=== PATIENT | female | born 1955 | race Caucasian/White ===

== ENCOUNTER 2016-08-13 13:27 | Inpatient (IN) | payer OTHER ==
[~2016-08-13] VITALS: Ht 160 cm; Wt 118.5 kg
[~2016-08-13 13:27] MED LIST: ASCORBIC ACID500 M3 PO; ATROVENT H200 INHALA IH; AZITHROMYCIN500 M1 PO; Aspirin PO; CARVEDILOL6.25 MG PO; CEFDINIR300 MG PO; CELEXA40 MG PO; CIPROFLOXACIN H10 ML BOTH EYES; COREG25 M1 PO; CYANOCOBALAM1000 MCG PO; Coreg PO; DELTASONE20 M1 PO; DRISDOL50000 UNIT PO; Diflucan PO; ECOTRIN325 MG PO; ESCITALOPRAM OX10 MG PO; FERROUS SULFAT325 MG PO; FISH OIL500 MG PO; FLONASE16 G1 BOTH NARES; FUROSEMIDE20 MG PO; GABAPENTIN300 MG PO; GABAPENTIN400 MG PO; GENTAMICIN SULFA5 ML BOTH EYES; GLUCOPHAGE1000 MG PO; GLUCOTROL10 MG PO; Glucotrol PO; KEFLEX500 MG PO; KLOR-CON M2020 MEQ PO; LANTUS 10100 UNITS/ SC; LANTUS 3 M100 UNITS1 SQ; LASIX20 MG PO; LASIX40 MG PO; LEVEMIR100 UNIT/2 SC; LEVOFLOXACIN750 MG PO; LEXAPRO10 MG PO; LIPITOR20 MG PO; LISINOPRIL2.5 MG PO; LISINOPRIL20 MG PO; MELOXICAM7.5 MG PO; MOBIC7.5 MG PO; NEURONTIN300 MG PO; NORVASC5 MG PO; NOVOLOG 10100 UNITS/ SC; NOVOLOG PE100 UNITS/ SC; Neurontin PO; Norvasc PO; OXYGEN MC; PRAVACHOL10 MG PO; PREDNISONE10 MG PO; PREDNISONE20 MG PO; RENVELA800 MG PO; SINGULAIR10 MG PO; SPIRIVA RESPIMAT4 GM IH; SYMBICORT60 INHALAT IH; THEOPHYLLINE400 MG PO; TOUJEO SOL300 UNIT/1 SC; TRADJENTA5 MG PO; TRAZODONE HCL50 MG PO; TUMS500 MG PO; VITAMIN D-32000 UNI1 PO; VITAMIN D2000 UNI1 PO; Vitamin B-12 PO; Vitamin D, Drisdol PO; celeXA PO; predniSONE PO
[2016-08-13 15:29] LABS: HEMATOCRIT 30.6 % (36.0-46.0); MCH 28.5 PG (29.0-34.0); MCHC 30.7 G/DL (30.0-36.0); MCV 92.7 FL (83-99); PLATELET COUNT 182 K/uL (156-360); RBC DIS.WIDTH-CV 14.9 % (11.8-14.6); WHITE BLOOD COUNT 5.3 K/uL (4.1-10.2)
[2016-08-13 15:46] LABS: CHLORIDE 97 mEq/L (99-109); POTASSIUM 5.2 mEq/L (3.7-5.4); SODIUM 141 mEq/L (136-147); TROP-I INTERPRETATION NEGATIVE; TROPONIN-I 0.01 ng/mL (0.0-0.30)
[2016-08-13 15:47] LABS: GLUCOSE 168 mg/dL (70-99)
[2016-08-13 15:49] LABS: ANION GAP 8 MEQ/L (2-14)
[2016-08-13 15:51] LABS: GFR ESTIMATE (CALCULATED) 35 mL/min/
[2016-08-13 15:52] LABS: UREA NITROGEN (BUN) 16 mg/dL (9-23)
[2016-08-13 16:28] LABS: BASE EXCESS 9.8 mEq/L (-3 to +3); BICARBONATE 40.1 mEq/L (22-26); CARBOXY HGB 2.5 % (0-5); COMMENTS - BLOOD GASES A+C+; DEVICE NC; METHEMOGLOBIN 0.9 % (0-1.5); O2 FLOW 3 L/MIN; PCO2 98 mm Hg (35-45); PO2 89 mm Hg (80-100); SITE LR; TOTAL RESP RATE 18 resp/min
[2016-08-13 16:29] LABS: pH 7.22 (7.35-7.45)
[2016-08-13 17:16] LABS: BASE EXCESS 8.1 mEq/L (-3 to +3); BICARBONATE 37.7 mEq/L (22-26); CARBOXY HGB 2.4 % (0-5); COMMENTS - BLOOD GASES C+; DEVICE HHFNC; FI02 30 %; METHEMOGLOBIN 0.9 % (0-1.5); O2 FLOW 40 L/MIN; PCO2 88 mm Hg (35-45); PO2 75 mm Hg (80-100); SITE RR +A
[2016-08-13 17:17] LABS: TOTAL RESP RATE 18 resp/min
[2016-08-13 17:18] LABS: pH 7.24 (7.35-7.45)
[2016-08-13 21:58] VITALS: BP 160/88
[2016-08-13 23:23] LABS: TROP-I INTERPRETATION NEGATIVE; TROPONIN-I < 0.01 ng/mL (0.0-0.30)
[2016-08-14 03:38] VITALS: BP 144/65
[2016-08-14 04:01] LABS: POINT-OF-CARE METER ID UU13113717
[2016-08-14 06:12] LABS: POINT-OF-CARE METER ID UU13113725
[2016-08-14 07:47] VITALS: BP 140/62
[2016-08-14 08:59] LABS: TROP-I INTERPRETATION NEGATIVE; TROPONIN-I < 0.01 ng/mL (0.0-0.30)
[2016-08-14 09:00] LABS: ANION GAP 7 MEQ/L (2-14); CHLORIDE 91 MEQ/L (99-109); GFR ESTIMATE (CALCULATED) 38 mL/min/; GLUCOSE 242 mg/dL (70-99); POTASSIUM 5.2 MEQ/L (3.7-5.4); SAMPLE HEMOLYSIS CHECK 0; SAMPLE ICTERIC CHECK 0; SAMPLE LIPEMIA CHECK 0; SODIUM 134 MEQ/L (136-147); UREA NITROGEN (BUN) 19 mg/dL (9-23)
[2016-08-14 11:35] VITALS: BP 125/64
[2016-08-14 14:56] VITALS: BP 129/58
[2016-08-14 16:08] LABS: POINT-OF-CARE METER ID UU13113717
[2016-08-14 19:19] VITALS: BP 150/70
[2016-08-14 21:30] LABS: POINT-OF-CARE METER ID UU13113717
[2016-08-14 23:10] VITALS: BP 126/60
[2016-08-15 03:03] VITALS: BP 145/65
[2016-08-15 05:44] LABS: POINT-OF-CARE METER ID UU13113717
[2016-08-15 07:29] VITALS: BP 116/56
[2016-08-15 10:31] LABS: BASE EXCESS 15.4 mEq/L (-3 to +3); BICARBONATE 44.8 mEq/L (22-26); CARBOXY HGB 2.1 % (0-5); METHEMOGLOBIN 1.2 % (0-1.5)
[2016-08-15 10:32] LABS: COMMENTS - BLOOD GASES A+C+; DEVICE NCHH; FI02 40 %; O2 FLOW 25 L/MIN; PCO2 88 mm Hg (35-45); PO2 99 mm Hg (80-100); SITE RR; TOTAL RESP RATE 16 resp/min; pH 7.31 (7.35-7.45)
[2016-08-15 11:34] VITALS: BP 123/60
[2016-08-15 11:35] LABS: POINT-OF-CARE METER ID UU13113725
[2016-08-15 15:57] VITALS: BP 147/66
[2016-08-15 16:29] LABS: POINT-OF-CARE METER ID UU13113717
[2016-08-15 19:39] VITALS: BP 113/64
[2016-08-15 21:35] LABS: POINT-OF-CARE METER ID UU13113717
[2016-08-15 23:55] VITALS: BP 140/61
[2016-08-16 03:35] VITALS: BP 135/67
[2016-08-16 06:33] LABS: POINT-OF-CARE METER ID UU13113717
[2016-08-16 07:33] VITALS: BP 120/57
[2016-08-16 11:31] VITALS: BP 117/61
[2016-08-16 15:04] VITALS: BP 132/61
[2016-08-16 19:30] VITALS: BP 130/58
[2016-08-16 20:49] LABS: POINT-OF-CARE METER ID UU13113717
[2016-08-17 00:10] VITALS: BP 126/67
[2016-08-17 03:07] VITALS: BP 131/59
[2016-08-17 07:23] VITALS: BP 138/66
[2016-08-17 11:31] LABS: POINT-OF-CARE METER ID UU13113725
[2016-08-17 15:08] VITALS: BP 128/64
[2016-08-17 16:37] LABS: POINT-OF-CARE METER ID UU13113725
[2016-08-17 19:52] VITALS: BP 137/62
[2016-08-17 21:03] LABS: POINT-OF-CARE METER ID UU13113725
[2016-08-17 23:17] VITALS: BP 144/69
[2016-08-18 05:47] LABS: POINT-OF-CARE METER ID UU13113725
[2016-08-18 08:06] VITALS: BP 142/62
[2016-08-18 11:08] LABS: POINT-OF-CARE METER ID UU13113725
[2016-08-18 11:20] VITALS: BP 129/67
[2016-08-18 16:33] VITALS: BP 142/67
[2016-08-18 16:40] LABS: POINT-OF-CARE METER ID UU13113725
[2016-08-18 19:45] VITALS: BP 154/78
[2016-08-18 21:03] LABS: POINT-OF-CARE METER ID UU13113725
[2016-08-18 23:10] VITALS: BP 164/68
[2016-08-19] VITALS (7 sets, daily range): BP systolic 117–181; BP diastolic 62–79
[2016-08-19 08:19] LABS: ANION GAP ND MEQ/L (2-14); CHLORIDE 90 MEQ/L (99-109); GFR ESTIMATE (CALCULATED) 32 mL/min/; GLUCOSE 142 mg/dL (70-99); POTASSIUM 4.3 MEQ/L (3.7-5.4); SAMPLE HEMOLYSIS CHECK 0; SAMPLE ICTERIC CHECK 0; SAMPLE LIPEMIA CHECK 0; SODIUM 138 MEQ/L (136-147)
[2016-08-19 08:24] LABS: CARBON DIOXIDE (BICARBONATE) > 40.0 MEQ/L (20-31); UREA NITROGEN (BUN) 37 mg/dL (9-23)
[2016-08-19 21:37] LABS: POINT-OF-CARE METER ID UU13113717
[2016-08-20 09:00] VITALS: BP 147/64
[2016-08-20 11:39] LABS: POINT-OF-CARE METER ID UU13113725
[2016-08-20 16:25] VITALS: BP 172/72
[2016-08-20 23:19] VITALS: BP 154/64
[2016-08-21 07:55] VITALS: BP 147/65
[2016-08-21 11:41] LABS: POINT-OF-CARE METER ID UU13113725
[2016-08-21 16:39] VITALS: BP 151/69
[2016-08-21 23:32] VITALS: BP 116/55
[2016-08-22 07:48] LABS: ANION GAP ND MEQ/L (2-14); CHLORIDE 88 MEQ/L (99-109); GFR ESTIMATE (CALCULATED) 37 mL/min/; GLUCOSE 115 mg/dL (70-99); SAMPLE HEMOLYSIS CHECK 0; SAMPLE ICTERIC CHECK 0; SAMPLE LIPEMIA CHECK 0; SODIUM 138 MEQ/L (136-147); UREA NITROGEN (BUN) 37 mg/dL (9-23)
[2016-08-22 07:50] LABS: CARBON DIOXIDE (BICARBONATE) > 40.0 MEQ/L (20-31); POTASSIUM 5.8 MEQ/L (3.7-5.4)
[2016-08-22 07:55] VITALS: BP 128/63
[2016-08-22 11:48] LABS: POINT-OF-CARE METER ID UU13113725
[2016-08-22 15:57] LABS: POINT-OF-CARE METER ID UU13113717
[2016-08-22 16:12] VITALS: BP 135/61
[2016-08-22 21:56] LABS: POINT-OF-CARE METER ID UU13113725
[2016-08-23 00:07] VITALS: BP 127/58
[2016-08-23 06:03] LABS: POINT-OF-CARE METER ID UU13113725
[2016-08-23 07:00] LABS: ANION GAP 8 MEQ/L (2-14); CHLORIDE 88 MEQ/L (99-109); GFR ESTIMATE (CALCULATED) 32 mL/min/; GLUCOSE 115 mg/dL (70-99); POTASSIUM 5.1 MEQ/L (3.7-5.4); SAMPLE HEMOLYSIS CHECK 0; SAMPLE ICTERIC CHECK 0; SAMPLE LIPEMIA CHECK 0; SODIUM 135 MEQ/L (136-147); UREA NITROGEN (BUN) 39 mg/dL (9-23)
[2016-08-23 07:37] VITALS: BP 139/64
[2016-08-23 10:53] LABS: POINT-OF-CARE METER ID UU13113725
[2016-08-23 15:40] LABS: POINT-OF-CARE METER ID UU13113725
[2016-08-23 15:55] VITALS: BP 135/61
[2016-08-23 20:58] LABS: POINT-OF-CARE METER ID UU13113725
[2016-08-23 23:02] VITALS: BP 134/65
[2016-08-24 05:58] LABS: POINT-OF-CARE METER ID UU13113725
[2016-08-24 07:50] VITALS: BP 116/68
[2016-08-24 11:51] LABS: POINT-OF-CARE METER ID UU13113725
[2016-08-24 15:50] LABS: POINT-OF-CARE METER ID UU13113725
[2016-08-24 16:22] VITALS: BP 109/55
[2016-08-24 21:19] LABS: POINT-OF-CARE METER ID UU13113725
[2016-08-24 23:04] VITALS: BP 134/65
[2016-08-25 06:34] LABS: POINT-OF-CARE METER ID UU13113717
[2016-08-25 08:25] VITALS: BP 145/65
[2016-08-25 11:58] LABS: POINT-OF-CARE METER ID UU13113717
[2016-08-25 15:40] VITALS: BP 154/71
[2016-08-25 16:12] LABS: POINT-OF-CARE METER ID UU13113717
[2016-08-25 21:01] LABS: POINT-OF-CARE METER ID UU13113717
[2016-08-25 23:05] VITALS: BP 146/66
[2016-08-26 06:05] LABS: POINT-OF-CARE METER ID UU13113717
[2016-08-26 10:32] LABS: HEMATOCRIT 30.2 % (36.0-46.0); MCH 28.2 PG (29.0-34.0); MCHC 31.8 G/DL (30.0-36.0); MCV 88.8 FL (83-99); MEAN PLAT.VOLUME 9.8 uM^3 (9.5-12.4); RBC DIS.WIDTH-CV 14.8 % (11.8-14.6); RBC DIS.WIDTH-SD 47.9 % (39-53)
[2016-08-26 10:45] LABS: PLATELET COUNT 265 K/uL (156-360); WHITE BLOOD COUNT 9.5 K/uL (4.1-10.2)
[2016-08-26 10:55] LABS: ALKALINE PHOSPHATASE 45 IU/L (3-129); ANION GAP 4 MEQ/L (2-14); CHLORIDE 91 MEQ/L (99-109); GFR ESTIMATE (CALCULATED) 40 mL/min/; GLUCOSE 105 mg/dL (70-99); POTASSIUM 4.7 MEQ/L (3.7-5.4); SAMPLE HEMOLYSIS CHECK 1; SAMPLE ICTERIC CHECK 0; SAMPLE LIPEMIA CHECK 0; SODIUM 133 MEQ/L (136-147); TOTAL BILIRUBIN 0.3 MG/DL (0.0-1.0); UREA NITROGEN (BUN) 38 mg/dL (9-23)
[2016-08-26 15:21] VITALS: BP 163/74
[2016-08-26 21:02] LABS: POINT-OF-CARE METER ID UU13113725
[2016-08-26 21:18] LABS: C DIFF TOXIN NEGATIVE (NEGATIVE)
[2016-08-26 21:19] LABS: PROBE CHECK PASS; SPECIMEN PROCESSING CONTROL PASS
[2016-08-26 23:46] VITALS: BP 137/71
[2016-08-27 06:04] LABS: POINT-OF-CARE METER ID UU13113725
[2016-08-27 08:32] VITALS: BP 130/71
[2016-08-27 11:31] LABS: POINT-OF-CARE METER ID UU13113725
[2016-08-27 15:48] LABS: POINT-OF-CARE METER ID UU13113725
[2016-08-27 16:37] VITALS: BP 153/65
[2016-08-27 22:55] VITALS: BP 160/73
[2016-08-28 09:05] VITALS: BP 132/80
[2016-08-28] MEDS ORDERED: PREDNISONE10 MG PO (11:59)
[2016-08-28] MEDS ORDERED: ADDERALL XR 2020 MG PO (13:37)
[2016-08-28] MEDS ORDERED: DUONEB 2.5-0.5 M3 ML AEROSOL (13:37)
== END 2016-08-28 16:45 | disposition home health service (06) | DRG 190 ==
LOC: EME 13:27 → 5EAST 17:01 → EDOF 17:01 → 5EAST 21:34
PROVIDERS: Emergency Medicine; Internal Medicine; Internal Medicine Pulmonary Disease
DX: J44.1 Chronic obstructive pulmonary disease with (acute) exacerbation (principal); J96.21 Acute and chronic respiratory failure with hypoxia; J45.901 Unspecified asthma with (acute) exacerbation; I50.33 Acute on chronic diastolic (congestive) heart failure; E87.2 Acidosis; E66.2 Morbid (severe) obesity with alveolar hypoventilation; Z68.42 Body mass index [BMI] 45.0-49.9, adult; I13.0 Hypertensive heart and chronic kidney disease with heart failure and stage 1 through stage 4 chronic kidney disease, or unspecified chronic kidney disease; H00.035 Abscess of left lower eyelid; E87.5 Hyperkalemia; R11.10 Vomiting, unspecified; R19.7 Diarrhea, unspecified; N18.3 Chronic kidney disease, stage 3 (moderate); E11.22 Type 2 diabetes mellitus with diabetic chronic kidney disease; I27.2 Other secondary pulmonary hypertension; I25.119 Atherosclerotic heart disease of native coronary artery with unspecified angina pectoris; E78.5 Hyperlipidemia, unspecified; F31.9 Bipolar disorder, unspecified; F41.9 Anxiety disorder, unspecified; K21.9 Gastro-esophageal reflux disease without esophagitis; Z86.73 Personal history of transient ischemic attack (TIA), and cerebral infarction without residual deficits; Z79.4 Long term (current) use of insulin; Z99.81 Dependence on supplemental oxygen; Z91.19 Patient's noncompliance with other medical treatment and regimen
CPT/HCPCS: 36600; 71020; 80048; 80053; 82803; 82948; 83880; 84484; 85027; 87493; 93005; 94640; 94640 76; 94660; 94760; 94799; 99281; 99285; J0690; J0692; J1650; J1815; J1940; J7050; J7512

== ENCOUNTER 2016-10-03 11:47 | Emergency (ER) | payer OTHER ==
[~2016-10-03] VITALS: Ht 160 cm; Wt 122.7 kg
[~2016-10-03 11:47] MED LIST changes: +ADDERALL XR 2020 MG PO; +DUONEB 2.5-0.5 M3 ML AEROSOL
[2016-10-03 12:58] LABS: HEMATOCRIT 34.7 % (36.0-46.0); MCH 28.6 PG (29.0-34.0); MCHC 31.7 G/DL (30.0-36.0); MCV 90.1 FL (83-99); MEAN PLAT.VOLUME 9.7 uM^3 (9.5-12.4); PLATELET COUNT 229 K/uL (156-360); RBC DIS.WIDTH-SD 44.1 % (39-53); RED BLOOD COUNT 3.85 M/uL (3.80-5.20); WHITE BLOOD COUNT 7.5 K/uL (4.1-10.2)
[2016-10-03 13:10] LABS: CHLORIDE 98 mEq/L (99-109); POTASSIUM 4.4 mEq/L (3.7-5.4); SODIUM 145 mEq/L (136-147)
[2016-10-03 13:11] LABS: GLUCOSE 108 mg/dL (70-99)
[2016-10-03 13:13] LABS: ANION GAP 9 MEQ/L (2-14)
[2016-10-03 13:15] LABS: GFR ESTIMATE (CALCULATED) 48 mL/min/
[2016-10-03 13:16] LABS: UREA NITROGEN (BUN) 10 mg/dL (9-23)
[2016-10-03 13:25] LABS: TROP-I INTERPRETATION NEGATIVE; TROPONIN-I 0.01 ng/mL (0.0-0.30)
[2016-10-03 17:55] LABS: TROP-I INTERPRETATION NEGATIVE; TROPONIN-I 0.02 ng/mL (0.0-0.30)
[2016-10-03] MEDS ORDERED: FLEXERIL10 MG PO (18:19)
[2016-10-03 19:27] VITALS: BP 144/73
== END 2016-10-03 19:34 | disposition home or self-care (01) ==
LOC: EME 11:47
PROVIDERS: Nurse Practitioner Family
DX: M16.11 Unilateral primary osteoarthritis, right hip (principal); R06.00 Dyspnea, unspecified; R07.89 Other chest pain; W18.30XA Fall on same level, unspecified, initial encounter; Y92.002 Bathroom of unspecified non-institutional (private) residence as the place of occurrence of the external cause; J45.909 Unspecified asthma, uncomplicated; J44.9 Chronic obstructive pulmonary disease, unspecified; I11.0 Hypertensive heart disease with heart failure; I50.9 Heart failure, unspecified; E11.9 Type 2 diabetes mellitus without complications; E78.5 Hyperlipidemia, unspecified; K21.9 Gastro-esophageal reflux disease without esophagitis; Z86.73 Personal history of transient ischemic attack (TIA), and cerebral infarction without residual deficits; Z79.4 Long term (current) use of insulin
CPT/HCPCS: 71020; 73502; 80048; 84484; 85027; 93005; 99281; 99284

== ENCOUNTER 2016-11-17 19:49 | Observation (INO) | payer OTHER ==
[~2016-11-17] VITALS: Ht 160 cm; Wt 124.6 kg
[~2016-11-17 19:49] MED LIST changes: +FLEXERIL10 MG PO
[2016-11-17 20:31] LABS: HEMATOCRIT 29.3 % (36.0-46.0); MCH 29.6 PG (29.0-34.0); MCHC 32.4 G/DL (30.0-36.0); MCV 91.3 FL (83-99); MEAN PLAT.VOLUME 10.2 uM^3 (9.5-12.4); PLATELET COUNT 212 K/uL (156-360); RBC DIS.WIDTH-CV 13.2 % (11.8-14.6); RBC DIS.WIDTH-SD 42.8 % (39-53); RED BLOOD COUNT 3.21 M/uL (3.80-5.20); WHITE BLOOD COUNT 7.4 K/uL (4.1-10.2)
[2016-11-17 20:50] LABS: CHLORIDE 97 mEq/L (99-109); POTASSIUM 4.9 mEq/L (3.7-5.4); SODIUM 139 mEq/L (136-147)
[2016-11-17 20:52] LABS: GLUCOSE 266 mg/dL (70-99)
[2016-11-17 20:54] LABS: ANION GAP 10 MEQ/L (2-14)
[2016-11-17 20:56] LABS: GFR ESTIMATE (CALCULATED) 32 mL/min/
[2016-11-17 20:57] LABS: UREA NITROGEN (BUN) 35 mg/dL (9-23)
[2016-11-17 21:01] LABS: TROP-I INTERPRETATION NEGATIVE; TROPONIN-I 0.02 ng/mL (0.0-0.30)
[2016-11-17] MEDS ORDERED: SYMBICORT60 INHALAT IH (22:23)
[2016-11-17] MEDS ORDERED: PREDNISONE10 MG PO (22:26)
[2016-11-18 00:06] VITALS: BP 123/58
[2016-11-18 03:49] LABS: TROP-I INTERPRETATION NEGATIVE; TROPONIN-I 0.02 ng/mL (0.0-0.30)
[2016-11-18 04:01] LABS: HDL CHOLESTEROL 48 MG/DL (Desirable>=50); LDL CHOLESTEROL 71 mg/dL (Desirable<100); NON-HDL CHOLESTEROL 108 mg/dL (Desirable<160); TOTAL CHOLESTEROL 156 mg/dL (Desirable<200); TRIGLYCERIDES 186 MG/DL (Normal: <150)
[2016-11-18 04:35] VITALS: BP 133/76
[2016-11-18 08:30] VITALS: BP 153/67
[2016-11-18 08:46] LABS: POINT-OF-CARE METER ID UU13113831
[2016-11-18 09:09] LABS: TROP-I INTERPRETATION NEGATIVE; TROPONIN-I 0.03 ng/mL (0.0-0.30)
[2016-11-18 10:11] LABS: EOSINOPHIL COUNT 0.2 K/uL (0-0.3); HEMATOCRIT 31.5 % (36.0-46.0); IMMATURE GRANULOCYTE (%) 0.6 % (0.0-0.7); IMMATURE GRANULOCYTE COUNT 0.1 K/uL; INSTRUMENT ABS NEUTROPHIL CT 5.4 K/uL; LYMPHOCYTE COUNT 2.6 K/uL (1.0-2.8); MCH 29.3 PG (29.0-34.0); MCHC 31.7 G/DL (30.0-36.0); MCV 92.4 FL (83-99); MEAN PLAT.VOLUME 10.3 uM^3 (9.5-12.4); MONOCYTE COUNT 0.6 K/uL (0-0.8); NEUTROPHIL (%) 60.7 % (45-76); NEUTROPHIL COUNT 5.4 K/uL (1.8-6.4); PLATELET COUNT 209 K/uL (156-360); RBC DIS.WIDTH-CV 13.3 % (11.8-14.6); RED BLOOD COUNT 3.41 M/uL (3.80-5.20); WHITE BLOOD COUNT 8.9 K/uL (4.1-10.2)
[2016-11-18 10:31] LABS: ANION GAP 9 MEQ/L (2-14); CHLORIDE 99 MEQ/L (99-109); GFR ESTIMATE (CALCULATED) 35 mL/min/; POTASSIUM 4.8 MEQ/L (3.7-5.4); SAMPLE HEMOLYSIS CHECK 0; SAMPLE ICTERIC CHECK 0; SAMPLE LIPEMIA CHECK 0; SODIUM 144 MEQ/L (136-147); UREA NITROGEN (BUN) 28 mg/dL (9-23)
[2016-11-18 10:34] LABS: GLUCOSE 109 mg/dL (70-99)
[2016-11-18 12:13] VITALS: BP 109/56
[2016-11-18 13:27] LABS: POINT-OF-CARE METER ID UU13113831
[2016-11-18 16:49] VITALS: BP 137/63
[2016-11-18 18:10] LABS: POINT-OF-CARE METER ID UU13113831
[2016-11-18 20:57] LABS: POINT-OF-CARE METER ID UU13113831
[2016-11-18 21:00] VITALS: BP 131/60
[2016-11-18 23:30] LABS: POINT-OF-CARE METER ID UU14162513
[2016-11-19 07:11] VITALS: BP 152/68
[2016-11-19 08:47] LABS: POINT-OF-CARE METER ID UU13113700
[2016-11-19 09:38] LABS: ANION GAP ND MEQ/L (2-14); CHLORIDE 94 MEQ/L (99-109); GFR ESTIMATE (CALCULATED) 44 mL/min/; GLUCOSE 88 mg/dL (70-99); POTASSIUM 4.8 MEQ/L (3.7-5.4); SAMPLE HEMOLYSIS CHECK 0; SAMPLE ICTERIC CHECK 0; SAMPLE LIPEMIA CHECK 0; SODIUM 142 MEQ/L (136-147); UREA NITROGEN (BUN) 24 mg/dL (9-23)
[2016-11-19 09:39] LABS: CARBON DIOXIDE (BICARBONATE) > 40.0 MEQ/L (20-31)
[2016-11-19 10:24] VITALS: BP 122/58
[2016-11-19 12:38] LABS: POINT-OF-CARE METER ID UU14162513
[2016-11-19 15:22] VITALS: BP 146/63
== END 2016-11-19 15:30 | disposition home or self-care (01) ==
LOC: EME → EDBD 19:49 → EME 19:49 → EDOF 22:27 → 5WEST 23:54
PROVIDERS: Emergency Medicine; Hospitalist; Nurse Practitioner Family; Physician Assistant Medical
DX: I13.0 Hypertensive heart and chronic kidney disease with heart failure and stage 1 through stage 4 chronic kidney disease, or unspecified chronic kidney disease (principal); I50.33 Acute on chronic diastolic (congestive) heart failure; N18.3 Chronic kidney disease, stage 3 (moderate); R07.89 Other chest pain; J96.11 Chronic respiratory failure with hypoxia; J96.12 Chronic respiratory failure with hypercapnia; E11.65 Type 2 diabetes mellitus with hyperglycemia; E66.2 Morbid (severe) obesity with alveolar hypoventilation; Z68.42 Body mass index [BMI] 45.0-49.9, adult; I25.10 Atherosclerotic heart disease of native coronary artery without angina pectoris; I69.351 Hemiplegia and hemiparesis following cerebral infarction affecting right dominant side; G47.33 Obstructive sleep apnea (adult) (pediatric); I27.2 Other secondary pulmonary hypertension; I35.0 Nonrheumatic aortic (valve) stenosis; J44.9 Chronic obstructive pulmonary disease, unspecified; J45.909 Unspecified asthma, uncomplicated; E78.5 Hyperlipidemia, unspecified; Z79.4 Long term (current) use of insulin; F41.9 Anxiety disorder, unspecified; F31.9 Bipolar disorder, unspecified
CPT/HCPCS: 71010; 71020; 80048; 80048 91; 80061; 82948; 83605; 83880; 84484; 85025; 85027; 87040; 93005; 94640; 94640 76; 94660; 94760; 94799; 99202; 99281; 99285; G0378; J1650; J1815; J1940; J7512

== ENCOUNTER 2016-11-29 12:22 | Observation (INO) | payer OTHER ==
[~2016-11-29] VITALS: Ht 160 cm; Wt 124.0 kg
[2016-11-29 13:00] LABS: EOSINOPHIL COUNT 0.2 K/uL (0-0.3); HEMATOCRIT 32.6 % (36.0-46.0); IMMATURE GRANULOCYTE (%) 0.5 % (0.0-0.7); LYMPHOCYTE COUNT 1.2 K/uL (1.0-2.8); MCH 29.1 PG (29.0-34.0); MCHC 31.3 G/DL (30.0-36.0); MCV 92.9 FL (83-99); MEAN PLAT.VOLUME 9.1 uM^3 (9.5-12.4); MONOCYTE (%) 8.3 % (3-12); MONOCYTE COUNT 0.5 K/uL (0-0.8); NEUTROPHIL (%) 66.6 % (45-76); PLATELET COUNT 175 K/uL (156-360); RBC DIS.WIDTH-CV 13.7 % (11.8-14.6); RED BLOOD COUNT 3.51 M/uL (3.80-5.20); WHITE BLOOD COUNT 6.1 K/uL (4.1-10.2)
[2016-11-29 13:06] LABS: CHLORIDE 94 mEq/L (99-109); POTASSIUM 5.1 mEq/L (3.7-5.4); SODIUM 141 mEq/L (136-147)
[2016-11-29 13:07] LABS: MAGNESIUM 2.1 mg/dL (1.3-2.7)
[2016-11-29 13:09] LABS: GLUCOSE 236 mg/dL (70-99)
[2016-11-29 13:10] LABS: ANION GAP 8 MEQ/L (2-14)
[2016-11-29 13:11] LABS: TOTAL BILIRUBIN 0.3 mg/dL (0.0-1.0)
[2016-11-29 13:12] LABS: ALKALINE PHOSPHATASE 52 IU/L (3-129)
[2016-11-29 13:13] LABS: GFR ESTIMATE (CALCULATED) 40 mL/min/
[2016-11-29 13:14] LABS: UREA NITROGEN (BUN) 19 mg/dL (9-23)
[2016-11-29 13:19] LABS: TROP-I INTERPRETATION NEGATIVE; TROPONIN-I 0.02 ng/mL (0.0-0.30)
[2016-11-29 20:54] LABS: TROP-I INTERPRETATION NEGATIVE; TROPONIN-I 0.02 ng/mL (0.0-0.30)
[2016-11-29 21:57] VITALS: BP 129/61
[2016-11-29 22:23] LABS: POINT-OF-CARE METER ID UU13113781
[2016-11-29] MEDS ORDERED: GABAPENTIN400 MG PO (22:45)
[2016-11-29] MEDS ORDERED: K-DUR20 MEQ PO (22:46)
[2016-11-29] MEDS ORDERED: SPIRIVA RESPIMAT4 GM IH (22:49)
[2016-11-29] MEDS ORDERED: DUONEB 2.5-0.5 M3 ML AEROSOL (22:49)
[2016-11-29] MEDS ORDERED: SYMBICORT60 INHALAT IH (22:51)
[2016-11-29] MEDS ORDERED: CYCLOBENZAPRINE5 MG PO (22:51)
[2016-11-29] MEDS ORDERED: TRAZODONE HCL50 MG PO (22:52)
[2016-11-29] MEDS ORDERED: FUROSEMIDE20 MG PO (22:52)
[2016-11-29] MEDS ORDERED: FERROUS SULFAT325 MG PO (22:53)
[2016-11-29] MEDS ORDERED: NOVOLOG PE100 UNITS/ SC (22:53)
[2016-11-29] MEDS ORDERED: ASCORBIC ACID500 M3 PO (22:54)
[2016-11-29] MEDS ORDERED: VITAMIN B122500 MCG PO (22:54)
[2016-11-29] MEDS ORDERED: VITAMIN D5000 UNI1 PO (22:55)
[2016-11-29] MEDS ORDERED: TRADJENTA5 MG PO (22:55)
[2016-11-29] MEDS ORDERED: CARVEDILOL6.25 MG PO (22:55)
[2016-11-29] MEDS ORDERED: LIPITOR20 MG PO (22:56)
[2016-11-29] MEDS ORDERED: SINGULAIR10 MG PO (22:56)
[2016-11-29] MEDS ORDERED: TOUJEO SOL300 UNIT/1 SC (22:56)
[2016-11-29] MEDS ORDERED: LEXAPRO10 MG PO (22:57)
[2016-11-29] MEDS ORDERED: THEO-DUR,THEOC300 MG PO (22:57)
[2016-11-29] MEDS ORDERED: FLONASE16 G1 BOTH NARES (22:57)
[2016-11-30] VITALS (7 sets, daily range): BP systolic 112–158; BP diastolic 59–85
[2016-11-30 04:38] LABS: TROP-I INTERPRETATION NEGATIVE; TROPONIN-I 0.02 ng/mL (0.0-0.30)
[2016-11-30 07:31] LABS: POINT-OF-CARE METER ID UU14174216
[2016-11-30 11:24] LABS: POINT-OF-CARE METER ID UU14174216
[2016-11-30 16:19] LABS: POINT-OF-CARE METER ID UU14174216
[2016-11-30 21:40] LABS: POINT-OF-CARE METER ID UU14174216
[2016-12-01 03:52] VITALS: BP 149/68
[2016-12-01 06:59] VITALS: BP 151/67
[2016-12-01 12:09] VITALS: BP 114/53
== END 2016-12-01 17:54 | disposition home health service (06) ==
LOC: EME → EDBD 12:22 → EDOF 15:26 → 4EAST 15:26
PROVIDERS: Internal Medicine; Physician Assistant
DX: R55 Syncope and collapse (principal); R07.89 Other chest pain; J44.1 Chronic obstructive pulmonary disease with (acute) exacerbation; J45.909 Unspecified asthma, uncomplicated; I13.0 Hypertensive heart and chronic kidney disease with heart failure and stage 1 through stage 4 chronic kidney disease, or unspecified chronic kidney disease; I50.32 Chronic diastolic (congestive) heart failure; E11.9 Type 2 diabetes mellitus without complications; N18.9 Chronic kidney disease, unspecified; E66.01 Morbid (severe) obesity due to excess calories; I25.10 Atherosclerotic heart disease of native coronary artery without angina pectoris; G47.30 Sleep apnea, unspecified; Z68.42 Body mass index [BMI] 45.0-49.9, adult; Z99.81 Dependence on supplemental oxygen; F32.9 Major depressive disorder, single episode, unspecified
CPT/HCPCS: 70450; 71020; 80053; 82948; 83735; 83880; 84484; 85025; 93005; 94640; 94640 76; 94664; 94799; 99202; 99281; 99285; G0378; G8978 GP CH; G8979 GP CH; G8980 GP CH; J1650; J1815; J1940; J7120

== ENCOUNTER 2016-12-07 13:20 | Inpatient (IN) | payer OTHER ==
[~2016-12-07] VITALS: Ht 160 cm; Wt 119.5 kg
[~2016-12-07 13:20] MED LIST changes: +CYCLOBENZAPRINE5 MG PO; +K-DUR20 MEQ PO; +THEO-DUR,THEOC300 MG PO; +VITAMIN B122500 MCG PO; +VITAMIN D5000 UNI1 PO
[2016-12-07 14:39] LABS: EOSINOPHIL (%) 2.1 % (0-5); EOSINOPHIL COUNT 0.1 K/uL (0-0.3); HEMATOCRIT 28.3 % (36.0-46.0); IMMATURE GRANULOCYTE (%) 0.3 % (0.0-0.7); INSTRUMENT ABS NEUTROPHIL CT 4.7 K/uL; LYMPHOCYTE COUNT 1.1 K/uL (1.0-2.8); MCH 29.7 PG (29.0-34.0); MCHC 31.8 G/DL (30.0-36.0); MCV 93.4 FL (83-99); MEAN PLAT.VOLUME 8.8 uM^3 (9.5-12.4); MONOCYTE (%) 7.9 % (3-12); MONOCYTE COUNT 0.5 K/uL (0-0.8); NEUTROPHIL (%) 72.4 % (45-76); NEUTROPHIL COUNT 4.7 K/uL (1.8-6.4); PLATELET COUNT 153 K/uL (156-360); RBC DIS.WIDTH-CV 13.6 % (11.8-14.6); RED BLOOD COUNT 3.03 M/uL (3.80-5.20); WHITE BLOOD COUNT 6.6 K/uL (4.1-10.2)
[2016-12-07 14:49] LABS: CHLORIDE 96 mEq/L (99-109); SODIUM 142 mEq/L (136-147)
[2016-12-07 14:51] LABS: GLUCOSE 143 mg/dL (70-99); INTER. NORMALIZED RATIO 0.9; PROTHROMBIN TIME 9.5 (9.2-11.2); PTT 28.7 (25-32)
[2016-12-07 14:52] LABS: ANION GAP 10 MEQ/L (2-14)
[2016-12-07 14:55] LABS: GFR ESTIMATE (CALCULATED) 44 mL/min/
[2016-12-07 14:56] LABS: UREA NITROGEN (BUN) 15 mg/dL (9-23)
[2016-12-07 15:02] LABS: TROP-I INTERPRETATION NEGATIVE; TROPONIN-I 0.02 ng/mL (0.0-0.30)
[2016-12-07] MEDS ORDERED: TUMS500 MG PO (16:52)
[2016-12-07] MEDS ORDERED: MELOXICAM7.5 MG PO (16:52)
[2016-12-07] MEDS ORDERED: LITE COAT ASPI325 M1 PO (16:52)
[2016-12-07 21:31] VITALS: BP 174/72
[2016-12-07 23:01] LABS: METH RESISTANT S AUREUS PCR POSITIVE (NEGATIVE)
[2016-12-07 23:14] LABS: PROBE CHECK PASS
[2016-12-08] VITALS (9 sets, daily range): BP systolic 127–174; BP diastolic 61–83
[2016-12-08 07:45] LABS: HEMATOCRIT 29.4 % (36.0-46.0); MCH 29.5 PG (29.0-34.0); MCV 92.2 FL (83-99); MEAN PLAT.VOLUME 9.5 uM^3 (9.5-12.4); PLATELET COUNT 185 K/uL (156-360); RBC DIS.WIDTH-CV 13.2 % (11.8-14.6); RED BLOOD COUNT 3.19 M/uL (3.80-5.20)
[2016-12-08 08:13] LABS: TROP-I INTERPRETATION NEGATIVE; TROPONIN-I 0.01 ng/mL (0.0-0.30)
[2016-12-08 08:27] LABS: ANION GAP ND MEQ/L (2-14); CARBON DIOXIDE (BICARBONATE) > 40.0 MEQ/L (20-31); CHLORIDE 92 MEQ/L (99-109); GFR ESTIMATE (CALCULATED) 44 mL/min/; GLUCOSE 232 mg/dL (70-99); SAMPLE HEMOLYSIS CHECK 0; SAMPLE ICTERIC CHECK 0; SAMPLE LIPEMIA CHECK 0; SODIUM 140 MEQ/L (136-147); UREA NITROGEN (BUN) 16 mg/dL (9-23)
[2016-12-08 13:59] LABS: BASE EXCESS 16.9 mEq/L (-3 to +3); BICARBONATE 46.7 mEq/L (22-26); CARBOXY HGB 2.3 % (0-5); METHEMOGLOBIN 1.4 % (0-1.5); PO2 40 mm Hg (80-100); pH 7.38 (7.35-7.45)
[2016-12-08 14:00] LABS: COMMENTS - BLOOD GASES A+C+; DEVICE ROOM AIR; FI02 21 %; O2 FLOW 0 L/MIN; PCO2 79 mm Hg (35-45); SITE LR
[2016-12-08 14:01] LABS: TOTAL RESP RATE 18 resp/min
[2016-12-08 21:46] LABS: POINT-OF-CARE METER ID UU14162508
[2016-12-09 03:33] VITALS: BP 120/67
[2016-12-09 06:08] LABS: EOSINOPHIL (%) 0 % (0-5); IMMATURE GRANULOCYTE (%) 0.4 % (0.0-0.7); LYMPHOCYTE COUNT 1.1 K/uL (1.0-2.8); MCH 29.5 PG (29.0-34.0); MCHC 32.5 G/DL (30.0-36.0); MCV 90.9 FL (83-99); MEAN PLAT.VOLUME 9.2 uM^3 (9.5-12.4); MONOCYTE (%) 5.1 % (3-12); MONOCYTE COUNT 0.4 K/uL (0-0.8); NEUTROPHIL (%) 80.2 % (45-76); PLATELET COUNT 212 K/uL (156-360); RBC DIS.WIDTH-CV 13.5 % (11.8-14.6); RBC DIS.WIDTH-SD 44.2 % (39-53); RED BLOOD COUNT 3.08 M/uL (3.80-5.20); WHITE BLOOD COUNT 7.4 K/uL (4.1-10.2)
[2016-12-09 06:43] LABS: POINT-OF-CARE METER ID UU14162508
[2016-12-09 06:44] LABS: ANION GAP ND MEQ/L (2-14); CHLORIDE 89 MEQ/L (99-109); GFR ESTIMATE (CALCULATED) 32 mL/min/; GLUCOSE 254 mg/dL (70-99); POTASSIUM 4.7 MEQ/L (3.7-5.4); SAMPLE HEMOLYSIS CHECK 0; SAMPLE ICTERIC CHECK 0; SAMPLE LIPEMIA CHECK 0; SODIUM 137 MEQ/L (136-147)
[2016-12-09 06:47] LABS: CARBON DIOXIDE (BICARBONATE) > 40.0 MEQ/L (20-31); UREA NITROGEN (BUN) 26 mg/dL (9-23)
[2016-12-09 07:14] VITALS: BP 141/66
[2016-12-09 11:20] LABS: POINT-OF-CARE METER ID UU14162508
[2016-12-09] MEDS ORDERED: PREDNISONE20 MG PO (13:50)
[2016-12-09] MEDS ORDERED: PREDNISONE10 MG PO (13:50)
[2016-12-09 15:44] VITALS: BP 145/61
[2016-12-09 15:59] LABS: POINT-OF-CARE METER ID UU14162508
== END 2016-12-09 17:00 | disposition home or self-care (01) | DRG 191 ==
LOC: EME 13:20 → 2EASTP 17:43 → EDOF 17:43 → 2EASTP 20:28
PROVIDERS: Emergency Medicine; Family Medicine; Internal Medicine Pulmonary Disease
DX: J44.1 Chronic obstructive pulmonary disease with (acute) exacerbation (principal); J45.909 Unspecified asthma, uncomplicated; Z87.891 Personal history of nicotine dependence; I13.0 Hypertensive heart and chronic kidney disease with heart failure and stage 1 through stage 4 chronic kidney disease, or unspecified chronic kidney disease; I50.32 Chronic diastolic (congestive) heart failure; N18.9 Chronic kidney disease, unspecified; E66.2 Morbid (severe) obesity with alveolar hypoventilation; Z68.42 Body mass index [BMI] 45.0-49.9, adult; D63.1 Anemia in chronic kidney disease; Z79.4 Long term (current) use of insulin; R09.02 Hypoxemia; Z99.81 Dependence on supplemental oxygen; I25.10 Atherosclerotic heart disease of native coronary artery without angina pectoris; Z87.01 Personal history of pneumonia (recurrent); F31.9 Bipolar disorder, unspecified; E78.5 Hyperlipidemia, unspecified; E11.22 Type 2 diabetes mellitus with diabetic chronic kidney disease; Z91.19 Patient's noncompliance with other medical treatment and regimen; J44.0 Chronic obstructive pulmonary disease with (acute) lower respiratory infection; J20.9 Acute bronchitis, unspecified
CPT/HCPCS: 36600; 71010; 80048; 82803; 82948; 83880; 84484; 85025; 85027; 85610; 85730; 87040; 87641; 93005; 94640; 94640 76; 94799; 99202; 99281; 99285; J0456; J0696; J1650; J1815; J1940; J2930; J7050; J7512

== ENCOUNTER 2016-12-26 19:03 | Inpatient (IN) | payer OTHER ==
[~2016-12-26] VITALS: Ht 160 cm; Wt 128.1 kg
[~2016-12-26 19:03] MED LIST changes: +LITE COAT ASPI325 M1 PO
[2016-12-26 19:42] LABS: HEMATOCRIT 29.7 % (36.0-46.0); MCH 30.3 PG (29.0-34.0); MCHC 31.6 G/DL (30.0-36.0); MCV 95.8 FL (83-99); MEAN PLAT.VOLUME 9.2 uM^3 (9.5-12.4); NRBC (%) 0.4 /100 WBC (0-0); PLATELET COUNT 190 K/uL (156-360); RBC DIS.WIDTH-CV 14.7 % (11.8-14.6); RBC DIS.WIDTH-SD 49.4 % (39-53)
[2016-12-26 19:50] LABS: CHLORIDE 96 mEq/L (99-109); POTASSIUM 4.8 mEq/L (3.7-5.4); SODIUM 143 mEq/L (136-147)
[2016-12-26 19:52] LABS: GLUCOSE 206 mg/dL (70-99)
[2016-12-26 19:53] LABS: ANION GAP 11 MEQ/L (2-14)
[2016-12-26 19:56] LABS: GFR ESTIMATE (CALCULATED) 28 mL/min/
[2016-12-26 19:57] LABS: UREA NITROGEN (BUN) 25 mg/dL (9-23)
[2016-12-26 20:00] LABS: TROP-I INTERPRETATION NEGATIVE; TROPONIN-I 0.04 ng/mL (0.0-0.30)
[2016-12-26 22:06] LABS: D-DIMER ELISA 0.45 mg/L FEU (< 0.57)
[2016-12-26 23:45] VITALS: BP 135/77
[2016-12-27 02:01] LABS: METH RESISTANT S AUREUS PCR POSITIVE (NEGATIVE)
[2016-12-27 02:05] LABS: PROBE CHECK PASS
[2016-12-27 04:08] VITALS: BP 140/68
[2016-12-27 07:09] LABS: HEMATOCRIT 32.3 % (36.0-46.0); MCH 30.4 PG (29.0-34.0); MCHC 31.3 G/DL (30.0-36.0); MCV 97.3 FL (83-99); MEAN PLAT.VOLUME 10.3 uM^3 (9.5-12.4); NRBC (%) 0.3 /100 WBC (0-0); PLATELET COUNT 175 K/uL (156-360); RBC DIS.WIDTH-CV 14.9 % (11.8-14.6); RBC DIS.WIDTH-SD 49.9 % (39-53); RED BLOOD COUNT 3.32 M/uL (3.80-5.20); WHITE BLOOD COUNT 6.5 K/uL (4.1-10.2)
[2016-12-27 07:34] LABS: ANION GAP 8 MEQ/L (2-14); CHLORIDE 93 MEQ/L (99-109); GFR ESTIMATE (CALCULATED) 32 mL/min/; GLUCOSE 247 mg/dL (70-99); POTASSIUM 5.6 MEQ/L (3.7-5.4); SAMPLE HEMOLYSIS CHECK 0; SAMPLE ICTERIC CHECK 0; SAMPLE LIPEMIA CHECK 0; SODIUM 138 MEQ/L (136-147); UREA NITROGEN (BUN) 23 mg/dL (9-23)
[2016-12-27 07:38] LABS: TROP-I INTERPRETATION NEGATIVE; TROPONIN-I 0.03 ng/mL (0.0-0.30)
[2016-12-27 08:00] VITALS: BP 140/82
[2016-12-27] MEDS ORDERED: FISH OIL 1,0001 EAC7 PO (10:52)
[2016-12-27] MEDS ORDERED: MELOXICAM7.5 MG PO (11:02)
[2016-12-27 11:37] VITALS: BP 144/78
[2016-12-27 11:48] LABS: POINT-OF-CARE METER ID UU14162508
[2016-12-27 12:32] LABS: TROP-I INTERPRETATION NEGATIVE; TROPONIN-I 0.02 ng/mL (0.0-0.30)
[2016-12-27 16:06] VITALS: BP 140/80
[2016-12-27 16:52] LABS: POINT-OF-CARE METER ID UU14162508
[2016-12-27 17:23] LABS: GLUCOSE 330 mg/dL (70-99)
[2016-12-27 20:18] VITALS: BP 142/65
[2016-12-27 21:47] LABS: POINT-OF-CARE METER ID UU14162508
[2016-12-27 23:03] VITALS: BP 119/62
[2016-12-28 03:58] VITALS: BP 140/63
[2016-12-28 06:26] LABS: POINT-OF-CARE METER ID UU14162508
[2016-12-28 06:51] VITALS: BP 165/81
[2016-12-28 06:56] LABS: EOSINOPHIL (%) 0 % (0-5); HEMATOCRIT 30.9 % (36.0-46.0); IMMATURE GRANULOCYTE (%) 0.7 % (0.0-0.7); IMMATURE GRANULOCYTE COUNT 0.1 K/uL; INSTRUMENT ABS NEUTROPHIL CT 7.5 K/uL; LYMPHOCYTE COUNT 0.6 K/uL (1.0-2.8); MCH 30.3 PG (29.0-34.0); MCHC 31.4 G/DL (30.0-36.0); MCV 96.6 FL (83-99); MEAN PLAT.VOLUME 9.8 uM^3 (9.5-12.4); MONOCYTE (%) 3.7 % (3-12); MONOCYTE COUNT 0.3 K/uL (0-0.8); NEUTROPHIL (%) 88.7 % (45-76); NEUTROPHIL COUNT 7.5 K/uL (1.8-6.4); NRBC (%) 0.2 /100 WBC (0-0); PLATELET COUNT 188 K/uL (156-360); RBC DIS.WIDTH-CV 14.6 % (11.8-14.6); RBC DIS.WIDTH-SD 49.2 % (39-53); WHITE BLOOD COUNT 8.4 K/uL (4.1-10.2)
[2016-12-28 07:25] LABS: ANION GAP 7 MEQ/L (2-14); CHLORIDE 90 MEQ/L (99-109); GFR ESTIMATE (CALCULATED) 30 mL/min/; GLUCOSE 229 mg/dL (70-99); POTASSIUM 4.9 MEQ/L (3.7-5.4); SAMPLE HEMOLYSIS CHECK 0; SAMPLE ICTERIC CHECK 0; SAMPLE LIPEMIA CHECK 0; SODIUM 137 MEQ/L (136-147); UREA NITROGEN (BUN) 28 mg/dL (9-23)
[2016-12-28 11:10] VITALS: BP 100/60
[2016-12-28 11:28] LABS: POINT-OF-CARE METER ID UU14162508
[2016-12-28] MEDS ORDERED: PREDNISONE10 MG PO (12:55)
[2016-12-28] MEDS ORDERED: LORAZEPAM0.5 MG PO (12:55)
[2016-12-28] MEDS ORDERED: LEVAQUIN500 MG PO (12:55)
== END 2016-12-28 14:20 | disposition home or self-care (01) | DRG 190 ==
LOC: EME 19:03 → EDOF 21:41 → 2EAST 21:41
PROVIDERS: Emergency Medicine; Family Medicine
DX: J44.1 Chronic obstructive pulmonary disease with (acute) exacerbation (principal); J96.21 Acute and chronic respiratory failure with hypoxia; N17.9 Acute kidney failure, unspecified; R07.89 Other chest pain; E87.5 Hyperkalemia; I13.0 Hypertensive heart and chronic kidney disease with heart failure and stage 1 through stage 4 chronic kidney disease, or unspecified chronic kidney disease; N18.3 Chronic kidney disease, stage 3 (moderate); I50.30 Unspecified diastolic (congestive) heart failure; E11.22 Type 2 diabetes mellitus with diabetic chronic kidney disease; Z99.81 Dependence on supplemental oxygen; E66.2 Morbid (severe) obesity with alveolar hypoventilation; Z68.43 Body mass index [BMI] 50.0-59.9, adult; I25.10 Atherosclerotic heart disease of native coronary artery without angina pectoris; E78.5 Hyperlipidemia, unspecified; D63.1 Anemia in chronic kidney disease; J45.909 Unspecified asthma, uncomplicated; K21.9 Gastro-esophageal reflux disease without esophagitis; F31.9 Bipolar disorder, unspecified; Z77.22 Contact with and (suspected) exposure to environmental tobacco smoke (acute) (chronic); Z79.4 Long term (current) use of insulin
CPT/HCPCS: 71020; 80048; 82948; 84484; 84999; 85025; 85027; 85379; 87641; 93005; 93970; 94640; 94640 76; 94799; 99202; 99281; 99285; J1650; J1815; J1956; J2930; J7512

== ENCOUNTER 2017-01-16 12:17 | Observation (INO) | payer OTHER ==
[~2017-01-16] VITALS: Ht 160 cm; Wt 119.0 kg
[~2017-01-16 12:17] MED LIST changes: +FISH OIL 1,0001 EAC7 PO; +LEVAQUIN500 MG PO; +LORAZEPAM0.5 MG PO
[2017-01-16 13:22] LABS: HEMATOCRIT 34.4 % (36.0-46.0); MCH 29.8 PG (29.0-34.0); MCV 93.2 FL (83-99); MEAN PLAT.VOLUME 9.7 uM^3 (9.5-12.4); PLATELET COUNT 164 K/uL (156-360); RBC DIS.WIDTH-CV 13.2 % (11.8-14.6); RBC DIS.WIDTH-SD 45.3 % (39-53); RED BLOOD COUNT 3.69 M/uL (3.80-5.20); WHITE BLOOD COUNT 4.9 K/uL (4.1-10.2)
[2017-01-16 13:36] LABS: CHLORIDE 99 mEq/L (99-109); POTASSIUM 4.3 mEq/L (3.7-5.4); SODIUM 141 mEq/L (136-147)
[2017-01-16 13:37] LABS: GLUCOSE 232 mg/dL (70-99)
[2017-01-16 13:39] LABS: ANION GAP 9 MEQ/L (2-14)
[2017-01-16 13:40] LABS: TROP-I INTERPRETATION NEGATIVE; TROPONIN-I 0.07 ng/mL (0.0-0.30)
[2017-01-16 13:41] LABS: GFR ESTIMATE (CALCULATED) 30 mL/min/
[2017-01-16 13:42] LABS: UREA NITROGEN (BUN) 15 mg/dL (9-23)
[2017-01-16] MEDS ORDERED: FLONASE16 G1 BOTH NARES (15:19)
[2017-01-16 15:39] LABS: TROP-I INTERPRETATION NEGATIVE; TROPONIN-I 0.11 ng/mL (0.0-0.30)
[2017-01-16 16:10] LABS: BASE EXCESS 10.3 mEq/L (-3 to +3); BICARBONATE 39.4 mEq/L (22-26); COMMENTS - BLOOD GASES A+C+; METHEMOGLOBIN 0.8 % (0-1.5); PCO2 80 mm Hg (35-45); PO2 94 mm Hg (80-100); SITE LR
[2017-01-16 16:11] LABS: DEVICE NC; O2 FLOW 4 L/MIN; TOTAL RESP RATE 20 resp/min
[2017-01-16 21:01] LABS: TROP-I INTERPRETATION NEGATIVE; TROPONIN-I 0.14 ng/mL (0.0-0.30)
[2017-01-16 22:22] VITALS: BP 141/65
[2017-01-16 22:42] LABS: POINT-OF-CARE METER ID UU13113700
[2017-01-17 01:38] LABS: METH RESISTANT S AUREUS PCR POSITIVE (NEGATIVE)
[2017-01-17 01:45] LABS: PROBE CHECK PASS
[2017-01-17 03:42] LABS: CHLORIDE 100 mEq/L (99-109); POTASSIUM 4.1 mEq/L (3.7-5.4); SODIUM 141 mEq/L (136-147)
[2017-01-17 03:43] LABS: GLUCOSE 136 mg/dL (70-99)
[2017-01-17 03:45] VITALS: BP 129/68
[2017-01-17 03:45] LABS: ANION GAP 8 MEQ/L (2-14)
[2017-01-17 03:47] LABS: GFR ESTIMATE (CALCULATED) 30 mL/min/
[2017-01-17 03:48] LABS: UREA NITROGEN (BUN) 15 mg/dL (9-23)
[2017-01-17 03:52] LABS: TROP-I INTERPRETATION NEGATIVE
[2017-01-17 09:13] VITALS: BP 117/56
[2017-01-17 10:30] LABS: TROP-I INTERPRETATION NEGATIVE; TROPONIN-I 0.06 ng/mL (0.0-0.30)
== END 2017-01-17 13:52 | disposition home or self-care (01) ==
LOC: EME 12:17 → 5WEST 20:00 → EDOF 20:00 → 5WEST 21:56
PROVIDERS: Family Medicine; Nurse Practitioner Family
DX: J44.9 Chronic obstructive pulmonary disease, unspecified (principal); J45.909 Unspecified asthma, uncomplicated; E78.5 Hyperlipidemia, unspecified; K21.9 Gastro-esophageal reflux disease without esophagitis; Z86.73 Personal history of transient ischemic attack (TIA), and cerebral infarction without residual deficits; Z79.82 Long term (current) use of aspirin; Z79.4 Long term (current) use of insulin; Z99.81 Dependence on supplemental oxygen; E66.01 Morbid (severe) obesity due to excess calories; I13.0 Hypertensive heart and chronic kidney disease with heart failure and stage 1 through stage 4 chronic kidney disease, or unspecified chronic kidney disease; I50.32 Chronic diastolic (congestive) heart failure; N18.9 Chronic kidney disease, unspecified; G47.33 Obstructive sleep apnea (adult) (pediatric); I25.10 Atherosclerotic heart disease of native coronary artery without angina pectoris; F31.9 Bipolar disorder, unspecified; J96.11 Chronic respiratory failure with hypoxia; E87.2 Acidosis; E11.22 Type 2 diabetes mellitus with diabetic chronic kidney disease
CPT/HCPCS: 36600; 71020; 78582; 80048; 82803; 82948; 83880; 84484; 85027; 87641; 93005; 94640; 94660; 94799; 99202; 99281; 99285; A9540; A9567; G0378; J1644; J1815

== ENCOUNTER 2017-01-21 18:02 | Inpatient (IN) | payer OTHER ==
[~2017-01-21] VITALS: Ht 160 cm; Wt 127.0 kg
[2017-01-21 18:34] LABS: HEMATOCRIT 30.9 % (36.0-46.0); MCH 30.3 PG (29.0-34.0); MCHC 32.7 G/DL (30.0-36.0); MCV 92.8 FL (83-99); MEAN PLAT.VOLUME 9.2 uM^3 (9.5-12.4); PLATELET COUNT 164 K/uL (156-360); RBC DIS.WIDTH-CV 13.1 % (11.8-14.6); RBC DIS.WIDTH-SD 44.5 % (39-53); RED BLOOD COUNT 3.33 M/uL (3.80-5.20); WHITE BLOOD COUNT 5.1 K/uL (4.1-10.2)
[2017-01-21 18:43] LABS: CHLORIDE 103 mEq/L (99-109); POTASSIUM 4.2 mEq/L (3.7-5.4); SODIUM 143 mEq/L (136-147)
[2017-01-21 18:45] LABS: GLUCOSE 111 mg/dL (70-99)
[2017-01-21 18:46] LABS: ANION GAP 7 MEQ/L (2-14)
[2017-01-21 18:49] LABS: GFR ESTIMATE (CALCULATED) 48 mL/min/; UREA NITROGEN (BUN) 13 mg/dL (9-23)
[2017-01-21 18:55] LABS: TROP-I INTERPRETATION INDETERMINATE; TROPONIN-I 0.47 ng/mL (0.0-0.30)
[2017-01-21 20:12] LABS: PTT 28.5 (25-32)
[2017-01-21 22:11] VITALS: BP 118/56
[2017-01-21 23:29] VITALS: BP 131/59
[2017-01-22 01:04] LABS: TROP-I INTERPRETATION INDETERMINATE; TROPONIN-I 0.38 ng/mL (0.0-0.30)
[2017-01-22 02:49] LABS: METH RESISTANT S AUREUS PCR POSITIVE (NEGATIVE)
[2017-01-22 02:56] LABS: PROBE CHECK PASS
[2017-01-22 03:11] LABS: PROTHROMBIN TIME 10.1 (9.2-11.2)
[2017-01-22 03:35] VITALS: BP 127/61
[2017-01-22 05:52] LABS: HEMATOCRIT 32.6 % (36.0-46.0); MCH 30.5 PG (29.0-34.0); MCHC 31.9 G/DL (30.0-36.0); MCV 95.6 FL (83-99); PLATELET COUNT 181 K/uL (156-360); RBC DIS.WIDTH-CV 13.4 % (11.8-14.6); RBC DIS.WIDTH-SD 46.7 % (39-53); RED BLOOD COUNT 3.41 M/uL (3.80-5.20); WHITE BLOOD COUNT 5.1 K/uL (4.1-10.2)
[2017-01-22 06:14] LABS: TROP-I INTERPRETATION NEGATIVE
[2017-01-22 06:20] LABS: ANION GAP 6 MEQ/L (2-14); CHLORIDE 102 MEQ/L (99-109); GFR ESTIMATE (CALCULATED) 37 mL/min/; GLUCOSE 132 mg/dL (70-99); POTASSIUM 3.8 MEQ/L (3.7-5.4); SAMPLE HEMOLYSIS CHECK 0; SAMPLE ICTERIC CHECK 0; SAMPLE LIPEMIA CHECK 0; SODIUM 143 MEQ/L (136-147); UREA NITROGEN (BUN) 13 mg/dL (9-23)
[2017-01-22 06:50] LABS: POINT-OF-CARE METER ID UU13113781
[2017-01-22 07:42] VITALS: BP 149/69
[2017-01-22 11:19] LABS: POINT-OF-CARE METER ID UU13113698
[2017-01-22 11:37] VITALS: BP 116/57
[2017-01-22 15:58] LABS: POINT-OF-CARE METER ID UU13113698
[2017-01-22 16:08] VITALS: BP 127/61
[2017-01-22 19:21] VITALS: BP 126/57
[2017-01-22 21:54] LABS: POINT-OF-CARE METER ID UU13113698
[2017-01-23] VITALS (7 sets, daily range): BP systolic 109–135; BP diastolic 52–60
[2017-01-23 05:36] LABS: ANION GAP 10 MEQ/L (2-14); CHLORIDE 100 MEQ/L (99-109); GFR ESTIMATE (CALCULATED) 40 mL/min/; GLUCOSE 117 mg/dL (70-99); POTASSIUM 4.4 MEQ/L (3.7-5.4); SAMPLE HEMOLYSIS CHECK 0; SAMPLE ICTERIC CHECK 0; SAMPLE LIPEMIA CHECK 0; SODIUM 143 MEQ/L (136-147); UREA NITROGEN (BUN) 14 mg/dL (9-23)
[2017-01-23 11:49] LABS: POINT-OF-CARE USER ID ENVKC36
[2017-01-23 16:36] LABS: POINT-OF-CARE USER ID ENVKC36
[2017-01-23 21:33] LABS: POINT-OF-CARE METER ID UU13113698
[2017-01-24 04:37] VITALS: BP 151/86
[2017-01-24 05:51] LABS: EOSINOPHIL COUNT 0.2 K/uL (0-0.3); HEMATOCRIT 32.2 % (36.0-46.0); IMMATURE GRANULOCYTE (%) 0.2 % (0.0-0.7); INSTRUMENT ABS NEUTROPHIL CT 2.7 K/uL; LYMPHOCYTE COUNT 1.3 K/uL (1.0-2.8); MCH 30.4 PG (29.0-34.0); MCHC 32.3 G/DL (30.0-36.0); MCV 94.2 FL (83-99); MEAN PLAT.VOLUME 9.6 uM^3 (9.5-12.4); MONOCYTE (%) 10.9 % (3-12); MONOCYTE COUNT 0.5 K/uL (0-0.8); NEUTROPHIL (%) 56.7 % (45-76); NEUTROPHIL COUNT 2.7 K/uL (1.8-6.4); PLATELET COUNT 201 K/uL (156-360); RBC DIS.WIDTH-CV 13.2 % (11.8-14.6); RBC DIS.WIDTH-SD 45.2 % (39-53); RED BLOOD COUNT 3.42 M/uL (3.80-5.20); WHITE BLOOD COUNT 4.8 K/uL (4.1-10.2)
[2017-01-24 06:35] LABS: ANION GAP 8 MEQ/L (2-14); CHLORIDE 97 MEQ/L (99-109); GFR ESTIMATE (CALCULATED) 30 mL/min/; GLUCOSE 136 mg/dL (70-99); POTASSIUM 4.5 MEQ/L (3.7-5.4); SAMPLE HEMOLYSIS CHECK 0; SAMPLE ICTERIC CHECK 0; SAMPLE LIPEMIA CHECK 0; SODIUM 140 MEQ/L (136-147); UREA NITROGEN (BUN) 16 mg/dL (9-23)
[2017-01-24 07:30] VITALS: BP 158/71
[2017-01-24 07:39] LABS: POINT-OF-CARE METER ID UU13113698
[2017-01-24 11:56] LABS: POINT-OF-CARE USER ID ENVKC36
[2017-01-24 12:11] VITALS: BP 149/63
[2017-01-24 16:00] VITALS: BP 151/65
[2017-01-24 20:26] LABS: POINT-OF-CARE METER ID UU13113698
[2017-01-24 20:59] VITALS: BP 138/62
[2017-01-25 00:17] VITALS: BP 142/54
[2017-01-25 05:57] VITALS: BP 140/62
[2017-01-25 06:27] LABS: ANION GAP 5 MEQ/L (2-14); CHLORIDE 96 MEQ/L (99-109); GFR ESTIMATE (CALCULATED) 40 mL/min/; GLUCOSE 114 mg/dL (70-99); POTASSIUM 4.4 MEQ/L (3.7-5.4); SAMPLE HEMOLYSIS CHECK 0; SAMPLE ICTERIC CHECK 0; SAMPLE LIPEMIA CHECK 0; SODIUM 140 MEQ/L (136-147); UREA NITROGEN (BUN) 15 mg/dL (9-23)
[2017-01-25 07:48] VITALS: BP 162/74
[2017-01-25 07:59] LABS: POINT-OF-CARE METER ID UU13113781
[2017-01-25 14:30] VITALS: BP 140/64
[2017-01-25 16:40] LABS: POINT-OF-CARE METER ID UU14174216
[2017-01-25 17:00] VITALS: BP 152/70
[2017-01-25 19:20] VITALS: BP 124/58
[2017-01-26 00:20] VITALS: BP 132/60
[2017-01-26 04:00] VITALS: BP 119/53
[2017-01-26 06:21] LABS: HEMATOCRIT 33.2 % (36.0-46.0); MCH 30.3 PG (29.0-34.0); MCHC 32.5 G/DL (30.0-36.0); MEAN PLAT.VOLUME 9.6 uM^3 (9.5-12.4); PLATELET COUNT 210 K/uL (156-360); RBC DIS.WIDTH-CV 13.2 % (11.8-14.6); RBC DIS.WIDTH-SD 44.6 % (39-53); RED BLOOD COUNT 3.57 M/uL (3.80-5.20); WHITE BLOOD COUNT 4.9 K/uL (4.1-10.2)
[2017-01-26 07:00] LABS: ANION GAP ND MEQ/L (2-14); CHLORIDE 94 MEQ/L (99-109); GFR ESTIMATE (CALCULATED) 48 mL/min/; GLUCOSE 134 mg/dL (70-99); POTASSIUM 4.6 MEQ/L (3.7-5.4); SAMPLE HEMOLYSIS CHECK 0; SAMPLE ICTERIC CHECK 0; SAMPLE LIPEMIA CHECK 0; SODIUM 140 MEQ/L (136-147); UREA NITROGEN (BUN) 15 mg/dL (9-23)
[2017-01-26 07:01] LABS: CARBON DIOXIDE (BICARBONATE) > 40.0 MEQ/L (20-31)
[2017-01-26 07:57] LABS: POINT-OF-CARE METER ID UU13113698
[2017-01-26 08:00] VITALS: BP 150/65
[2017-01-26 08:22] LABS: POINT-OF-CARE METER ID UU14174216
[2017-01-26 16:27] LABS: POINT-OF-CARE METER ID UU13113819
[2017-01-26 18:00] VITALS: BP 122/56
[2017-01-26 19:30] VITALS: BP 130/59
[2017-01-26 20:49] LABS: POINT-OF-CARE METER ID UU14174216
[2017-01-27 00:15] VITALS: BP 117/62
[2017-01-27 04:52] VITALS: BP 126/66
[2017-01-27 08:00] VITALS: BP 141/65
[2017-01-27 12:34] VITALS: BP 124/62
[2017-01-27] MEDS ORDERED: NITROSTAT0.4 MG SL (12:57)
[2017-01-27] MEDS ORDERED: DIOVAN80 MG PO (13:02)
== END 2017-01-27 14:40 | disposition home health service (06) | DRG 880 ==
LOC: EME 18:02 → EDOF 20:05 → 4EAST 20:05
PROVIDERS: Emergency Medicine; Family Medicine
DX: F41.9 Anxiety disorder, unspecified (principal); R07.89 Other chest pain; R79.89 Other specified abnormal findings of blood chemistry; I25.10 Atherosclerotic heart disease of native coronary artery without angina pectoris; I13.0 Hypertensive heart and chronic kidney disease with heart failure and stage 1 through stage 4 chronic kidney disease, or unspecified chronic kidney disease; I50.32 Chronic diastolic (congestive) heart failure; N18.2 Chronic kidney disease, stage 2 (mild); E11.22 Type 2 diabetes mellitus with diabetic chronic kidney disease; E78.5 Hyperlipidemia, unspecified; G47.33 Obstructive sleep apnea (adult) (pediatric); I47.1 Supraventricular tachycardia; J44.1 Chronic obstructive pulmonary disease with (acute) exacerbation; J45.901 Unspecified asthma with (acute) exacerbation; J96.10 Chronic respiratory failure, unspecified whether with hypoxia or hypercapnia; F31.9 Bipolar disorder, unspecified; Z77.22 Contact with and (suspected) exposure to environmental tobacco smoke (acute) (chronic); E66.01 Morbid (severe) obesity due to excess calories; Z68.42 Body mass index [BMI] 45.0-49.9, adult; Z99.81 Dependence on supplemental oxygen; Z87.01 Personal history of pneumonia (recurrent)
CPT/HCPCS: 71020; 78452; 80048; 82948; 84484; 85025; 85027; 85610; 85730; 87641; 93005; 93017; 94640; 94640 76; 94799; 99202; 99281; 99285; A9500; C1769; C1887; J1644; J1815; J2250; J2785; J3010

== ENCOUNTER 2017-01-31 18:46 | Inpatient (IN) | payer OTHER ==
[~2017-01-31] VITALS: Ht 160 cm; Wt 123.9 kg
[~2017-01-31 18:46] MED LIST changes: +DIOVAN80 MG PO; +NITROSTAT0.4 MG SL
[2017-01-31 19:47] LABS: ADD MIUA? YES; BILIRUBIN NEGATIVE; BLOOD NEGATIVE; COLOR STRAW ((YELLOW)); GLUCOSE (STRIP) NEGATIVE; KETONES NEGATIVE; LEUKOCYTES TRACE; NITRITE NEGATIVE; PROTEIN (STRIP) NEGATIVE; SPECIFIC GRAVITY 1.006 (1.000-1.030); UROBILINOGEN 0.2 MG/DL (0.2-1.0)
[2017-01-31 19:57] LABS: BACTERIA RARE /HPF; EPITHELIAL CELLS 1+ /HPF; MUCUS NONE SEEN /LPF; RED BLOOD CELLS 0-5 /HPF (0-5); UCUL ADDED? NO; WHITE BLOOD CELLS 0-5 /HPF (0-5)
[2017-01-31 20:05] LABS: BASE EXCESS 16.8 mEq/L (-3 to +3); BICARBONATE 46.4 mEq/L (22-26); CARBOXY HGB 1.8 % (0-5); METHEMOGLOBIN 0.6 % (0-1.5); PO2 81 mm Hg (80-100); pH 7.32 (7.35-7.45)
[2017-01-31 20:06] LABS: COMMENTS - BLOOD GASES A+C+; DEVICE NC; O2 FLOW 4 L/MIN; PCO2 90 mm Hg (35-45); SITE LR; TOTAL RESP RATE 18 resp/min
[2017-01-31 20:52] LABS: EOSINOPHIL (%) 3.1 % (0-5); EOSINOPHIL COUNT 0.2 K/uL (0-0.3); HEMATOCRIT 33.4 % (36.0-46.0); IMMATURE GRANULOCYTE (%) 0.4 % (0.0-0.7); LYMPHOCYTE COUNT 1.5 K/uL (1.0-2.8); MCH 29.8 PG (29.0-34.0); MCHC 31.7 G/DL (30.0-36.0); MCV 93.8 FL (83-99); MEAN PLAT.VOLUME 9.3 uM^3 (9.5-12.4); MONOCYTE (%) 9.4 % (3-12); MONOCYTE COUNT 0.5 K/uL (0-0.8); PLATELET COUNT 231 K/uL (156-360); RBC DIS.WIDTH-CV 13.1 % (11.8-14.6); RBC DIS.WIDTH-SD 45.1 % (39-53); RED BLOOD COUNT 3.56 M/uL (3.80-5.20); WHITE BLOOD COUNT 5.2 K/uL (4.1-10.2)
[2017-01-31 21:09] LABS: CHLORIDE 96 mEq/L (99-109); SODIUM 142 mEq/L (136-147)
[2017-01-31 21:11] LABS: GLUCOSE 59 mg/dL (70-99)
[2017-01-31 21:13] LABS: ANION GAP 9 MEQ/L (2-14); TOTAL BILIRUBIN 0.3 mg/dL (0.0-1.0)
[2017-01-31 21:15] LABS: ALKALINE PHOSPHATASE 57 IU/L (3-129); GFR ESTIMATE (CALCULATED) 37 mL/min/
[2017-01-31 21:19] LABS: UREA NITROGEN (BUN) 23 mg/dL (9-23)
[2017-01-31 21:25] LABS: TROP-I INTERPRETATION NEGATIVE; TROPONIN-I < 0.01 ng/mL (0.0-0.30)
[2017-01-31] MEDS ORDERED: VALSARTAN80 MG PO (22:01)
[2017-01-31] MEDS ORDERED: NOVOLOG 10100 UNITS/ SC (22:05)
[2017-01-31] MEDS ORDERED: NOVOLOG PE100 UNITS/ SC (22:07)
[2017-01-31 22:27] LABS: POINT-OF-CARE METER ID UU14100415
[2017-02-01 01:25] VITALS: BP 153/67
[2017-02-01 04:25] VITALS: BP 126/60
[2017-02-01 07:15] LABS: POINT-OF-CARE METER ID UU13113725
[2017-02-01 07:51] VITALS: BP 119/89
[2017-02-01 10:49] VITALS: BP 140/66
[2017-02-01 16:11] VITALS: BP 117/59
[2017-02-01 19:11] VITALS: BP 133/61
[2017-02-02 01:07] VITALS: BP 131/53
[2017-02-02 06:24] LABS: POINT-OF-CARE METER ID UU13113725
[2017-02-02 06:47] LABS: EOSINOPHIL COUNT 0.1 K/uL (0-0.3); HEMATOCRIT 32.6 % (36.0-46.0); IMMATURE GRANULOCYTE (%) 0.8 % (0.0-0.7); IMMATURE GRANULOCYTE COUNT 0.1 K/uL; INSTRUMENT ABS NEUTROPHIL CT 4.3 K/uL; LYMPHOCYTE COUNT 1.4 K/uL (1.0-2.8); MCH 30.5 PG (29.0-34.0); MCHC 32.2 G/DL (30.0-36.0); MCV 94.8 FL (83-99); MEAN PLAT.VOLUME 10.1 uM^3 (9.5-12.4); MONOCYTE (%) 9.6 % (3-12); MONOCYTE COUNT 0.6 K/uL (0-0.8); NEUTROPHIL (%) 65.6 % (45-76); NEUTROPHIL COUNT 4.3 K/uL (1.8-6.4); PLATELET COUNT 239 K/uL (156-360); RBC DIS.WIDTH-CV 13.3 % (11.8-14.6); RBC DIS.WIDTH-SD 45.8 % (39-53); RED BLOOD COUNT 3.44 M/uL (3.80-5.20); WHITE BLOOD COUNT 6.6 K/uL (4.1-10.2)
[2017-02-02 07:26] LABS: ANION GAP ND MEQ/L (2-14); CHLORIDE 93 MEQ/L (99-109); GFR ESTIMATE (CALCULATED) 32 mL/min/; POTASSIUM 4.9 MEQ/L (3.7-5.4); SAMPLE HEMOLYSIS CHECK 0; SAMPLE ICTERIC CHECK 0; SAMPLE LIPEMIA CHECK 0; SODIUM 140 MEQ/L (136-147); UREA NITROGEN (BUN) 24 mg/dL (9-23)
[2017-02-02 07:36] LABS: GLUCOSE 129 mg/dL (70-99)
[2017-02-02 07:38] LABS: CARBON DIOXIDE (BICARBONATE) > 40.0 MEQ/L (20-31)
[2017-02-02 08:19] VITALS: BP 168/82
[2017-02-02] MEDS ORDERED: LORAZEPAM0.5 MG PO (12:01)
[2017-02-02] MEDS ORDERED: NOVOLOG PE100 UNITS/ SC (12:01)
[2017-02-02 12:17] LABS: POINT-OF-CARE METER ID UU13113725
[2017-02-02 16:52] LABS: POINT-OF-CARE METER ID UU13113725
[2017-02-02 17:20] VITALS: BP 154/91
== END 2017-02-02 18:38 | DRG 555 ==
LOC: EME 18:46 → 5EAST 22:00 → EDOF 22:00 → 5EAST 02-01 00:17
PROVIDERS: Emergency Medicine; Family Medicine
DX: M62.81 Muscle weakness (generalized) (principal); J96.22 Acute and chronic respiratory failure with hypercapnia; W18.30XA Fall on same level, unspecified, initial encounter; J96.21 Acute and chronic respiratory failure with hypoxia; E11.649 Type 2 diabetes mellitus with hypoglycemia without coma; E11.621 Type 2 diabetes mellitus with foot ulcer; E66.01 Morbid (severe) obesity due to excess calories; G47.33 Obstructive sleep apnea (adult) (pediatric); I50.32 Chronic diastolic (congestive) heart failure; I13.0 Hypertensive heart and chronic kidney disease with heart failure and stage 1 through stage 4 chronic kidney disease, or unspecified chronic kidney disease; N18.9 Chronic kidney disease, unspecified; E11.22 Type 2 diabetes mellitus with diabetic chronic kidney disease; I25.10 Atherosclerotic heart disease of native coronary artery without angina pectoris; K21.9 Gastro-esophageal reflux disease without esophagitis; J44.1 Chronic obstructive pulmonary disease with (acute) exacerbation; E78.5 Hyperlipidemia, unspecified; F32.9 Major depressive disorder, single episode, unspecified; M25.561 Pain in right knee; Z99.81 Dependence on supplemental oxygen; Y92.009 Unspecified place in unspecified non-institutional (private) residence as the place of occurrence of the external cause; Z79.4 Long term (current) use of insulin; E87.2 Acidosis
CPT/HCPCS: 36600; 70450; 71020; 80048; 80053; 81003; 82803; 82948; 84484; 85025; 93005; 94640; 94640 76; 94799; 99202; 99281; 99285; J1650; J1815; J1956

== ENCOUNTER 2017-04-22 16:41 | Observation (INO) | payer OTHER ==
[~2017-04-22] VITALS: Ht 160 cm; Wt 112.8 kg
[~2017-04-22 16:41] MED LIST changes: +VALSARTAN80 MG PO
[2017-04-22 17:32] LABS: EOSINOPHIL (%) 3.8 % (0-5); EOSINOPHIL COUNT 0.3 K/uL (0-0.3); HEMATOCRIT 30.9 % (36.0-46.0); IMMATURE GRANULOCYTE (%) 0.3 % (0.0-0.7); INSTRUMENT ABS NEUTROPHIL CT 4.2 K/uL; LYMPHOCYTE COUNT 1.8 K/uL (1.0-2.8); MCH 28.5 PG (29.0-34.0); MCHC 33.3 G/DL (30.0-36.0); MCV 85.4 FL (83-99); MEAN PLAT.VOLUME 9.7 uM^3 (9.5-12.4); MONOCYTE (%) 7.2 % (3-12); MONOCYTE COUNT 0.5 K/uL (0-0.8); NEUTROPHIL (%) 61.8 % (45-76); NEUTROPHIL COUNT 4.2 K/uL (1.8-6.4); PLATELET COUNT 206 K/uL (156-360); RBC DIS.WIDTH-CV 12.2 % (11.8-14.6); RBC DIS.WIDTH-SD 37.8 % (39-53); RED BLOOD COUNT 3.62 M/uL (3.80-5.20); WHITE BLOOD COUNT 6.8 K/uL (4.1-10.2)
[2017-04-22 17:32] LABS: POINT-OF-CARE METER ID UU13113747
[2017-04-22 17:37] LABS: PROTHROMBIN TIME 11.5 SEC (10.2-12.9)
[2017-04-22 17:40] LABS: PTT 30.5 SEC (25-37)
[2017-04-22 17:43] LABS: CHLORIDE 95 mEq/L (99-109); POTASSIUM 3.9 mEq/L (3.7-5.4); SODIUM 141 mEq/L (136-147)
[2017-04-22 17:45] LABS: GLUCOSE 86 mg/dL (70-99)
[2017-04-22 17:47] LABS: ANION GAP 10 MEQ/L (2-14); TOTAL BILIRUBIN 0.3 mg/dL (0.0-1.0)
[2017-04-22 17:48] LABS: SERUM ETHYL ALCOHOL < 10 mg/dL
[2017-04-22 17:49] LABS: ALKALINE PHOSPHATASE 94 IU/L (3-129); GFR ESTIMATE (CALCULATED) 30 mL/min/
[2017-04-22 17:50] LABS: UREA NITROGEN (BUN) 18 mg/dL (9-23)
[2017-04-22 17:51] LABS: DIRECT BILIRUBIN 0.1 mg/dL (0.0-0.3)
[2017-04-22 17:52] LABS: LIPASE 70 U/L (1.0-51.0); TROP-I INTERPRETATION NEGATIVE; TROPONIN-I 0.01 ng/mL (0.0-0.30)
[2017-04-22 20:50] LABS: ADD MIUA? NO; BILIRUBIN NEGATIVE; BLOOD NEGATIVE; COLOR YELLOW ((YELLOW)); GLUCOSE (STRIP) NEGATIVE; KETONES NEGATIVE; LEUKOCYTES NEGATIVE; NITRITE NEGATIVE; PROTEIN (STRIP) NEGATIVE; SPECIFIC GRAVITY 1.013 (1.000-1.030); UCUL ADDED? NO; UROBILINOGEN 0.2 MG/DL (0.2-1.0)
[2017-04-22] MEDS ORDERED: TOUJEO SOL300 UNIT/1 SC (22:42)
[2017-04-22] MEDS ORDERED: TYLENOL EXTRA500 MG PO (22:43)
[2017-04-22 23:28] VITALS: BP 117/54
[2017-04-23 01:27] LABS: METH RESISTANT S AUREUS PCR POSITIVE (NEGATIVE)
[2017-04-23 01:35] LABS: PROBE CHECK PASS
[2017-04-23 05:18] VITALS: BP 127/67
[2017-04-23 06:16] LABS: ANION GAP 5 MEQ/L (2-14); CHLORIDE 94 MEQ/L (99-109); GFR ESTIMATE (CALCULATED) 27 mL/min/; GLUCOSE 86 mg/dL (70-99); POTASSIUM 3.8 MEQ/L (3.7-5.4); SAMPLE HEMOLYSIS CHECK 0; SAMPLE ICTERIC CHECK 0; SAMPLE LIPEMIA CHECK 0; SODIUM 139 MEQ/L (136-147); UREA NITROGEN (BUN) 20 mg/dL (9-23)
[2017-04-23 06:22] LABS: TROP-I INTERPRETATION NEGATIVE; TROPONIN-I 0.01 ng/mL (0.0-0.30)
[2017-04-23 07:58] LABS: POINT-OF-CARE METER ID UU14162513
[2017-04-23 08:31] VITALS: BP 133/63
[2017-04-23 10:46] VITALS: BP 129/63
[2017-04-23 12:52] LABS: POINT-OF-CARE METER ID UU13113831
[2017-04-23 14:42] VITALS: BP 152/70
[2017-04-23 20:00] VITALS: BP 148/78
[2017-04-23 22:23] LABS: POINT-OF-CARE METER ID UU14162513
[2017-04-23 23:23] VITALS: BP 166/75
[2017-04-24 04:06] VITALS: BP 145/64
[2017-04-24 05:43] LABS: EOSINOPHIL (%) 4.1 % (0-5); EOSINOPHIL COUNT 0.2 K/uL (0-0.3); HEMATOCRIT 29.4 % (36.0-46.0); IMMATURE GRANULOCYTE (%) 0.4 % (0.0-0.7); INSTRUMENT ABS NEUTROPHIL CT 2.8 K/uL; LYMPHOCYTE COUNT 1.6 K/uL (1.0-2.8); MCH 29.8 PG (29.0-34.0); MCHC 33.3 G/DL (30.0-36.0); MEAN PLAT.VOLUME 9.8 uM^3 (9.5-12.4); MONOCYTE (%) 9.2 % (3-12); MONOCYTE COUNT 0.5 K/uL (0-0.8); NEUTROPHIL (%) 54.3 % (45-76); NEUTROPHIL COUNT 2.8 K/uL (1.8-6.4); PLATELET COUNT 187 K/uL (156-360); RBC DIS.WIDTH-CV 12.4 % (11.8-14.6); RBC DIS.WIDTH-SD 40.2 % (39-53); RED BLOOD COUNT 3.29 M/uL (3.80-5.20); WHITE BLOOD COUNT 5.1 K/uL (4.1-10.2)
[2017-04-24 05:44] LABS: MCV 89.4 FL (83-99)
[2017-04-24 06:17] LABS: ANION GAP 6 MEQ/L (2-14); CHLORIDE 98 MEQ/L (99-109); GFR ESTIMATE (CALCULATED) 35 mL/min/; POTASSIUM 4.3 MEQ/L (3.7-5.4); SAMPLE HEMOLYSIS CHECK 0; SAMPLE ICTERIC CHECK 0; SAMPLE LIPEMIA CHECK 0; SODIUM 141 MEQ/L (136-147); UREA NITROGEN (BUN) 19 mg/dL (9-23)
[2017-04-24 06:20] LABS: GLUCOSE 134 mg/dL (70-99)
[2017-04-24 08:15] VITALS: BP 118/58
[2017-04-24] MEDS ORDERED: POLYETHYLENE GL17 GM PO (12:09)
[2017-04-24 12:29] VITALS: BP 168/74
[2017-04-24 12:56] LABS: POINT-OF-CARE METER ID UU13113831
== END 2017-04-24 15:06 | disposition home or self-care (01) ==
LOC: EME 16:41 → 5WEST 22:22 → EDOF 22:22 → ENRESERV 22:24 → 5WEST 23:15
PROVIDERS: Emergency Medicine; Family Medicine
DX: R55 Syncope and collapse (principal); N17.9 Acute kidney failure, unspecified; I13.0 Hypertensive heart and chronic kidney disease with heart failure and stage 1 through stage 4 chronic kidney disease, or unspecified chronic kidney disease; E11.22 Type 2 diabetes mellitus with diabetic chronic kidney disease; N18.3 Chronic kidney disease, stage 3 (moderate); I50.30 Unspecified diastolic (congestive) heart failure; G47.33 Obstructive sleep apnea (adult) (pediatric); E66.01 Morbid (severe) obesity due to excess calories; Z68.41 Body mass index [BMI] 40.0-44.9, adult; J44.9 Chronic obstructive pulmonary disease, unspecified; I25.10 Atherosclerotic heart disease of native coronary artery without angina pectoris; Z91.19 Patient's noncompliance with other medical treatment and regimen; Z90.49 Acquired absence of other specified parts of digestive tract; Z86.31 Personal history of diabetic foot ulcer; R09.02 Hypoxemia; Z99.81 Dependence on supplemental oxygen; E78.5 Hyperlipidemia, unspecified; F32.9 Major depressive disorder, single episode, unspecified; F41.9 Anxiety disorder, unspecified; Z88.8 Allergy status to other drugs, medicaments and biological substances; Z81.1 Family history of alcohol abuse and dependence; Z83.3 Family history of diabetes mellitus; Z82.49 Family history of ischemic heart disease and other diseases of the circulatory system
CPT/HCPCS: 71010; 73560; 80048; 80076; 81003; 82948; 83605; 83690; 83880; 84484; 85025; 85610; 85730; 86850; 86900; 86901; 87641; 93005; 94640; 94640 76; 94660; 94799; 99202; 99281; 99285; G0378; G0480; G8978 GP CJ; G8979 GP CH; G8987 GO CJ; G8988 CI; J1644; J2405; J7030

== ENCOUNTER 2017-05-28 11:53 | Observation (INO) | payer OTHER ==
[~2017-05-28] VITALS: Ht 160 cm; Wt 114.0 kg
[~2017-05-28 11:53] MED LIST changes: +POLYETHYLENE GL17 GM PO; +TRAZODONE HCL100 MG PO; +TYLENOL EXTRA500 MG PO
[2017-05-28 13:04] LABS: EOSINOPHIL (%) 4.8 % (0-5); EOSINOPHIL COUNT 0.3 K/uL (0-0.3); HEMATOCRIT 27.4 % (36.0-46.0); IMMATURE GRANULOCYTE (%) 0.3 % (0.0-0.7); INSTRUMENT ABS NEUTROPHIL CT 3.7 K/uL; LYMPHOCYTE COUNT 1.5 K/uL (1.0-2.8); MCH 28.3 PG (29.0-34.0); MCHC 32.5 G/DL (30.0-36.0); MCV 87.3 FL (83-99); MEAN PLAT.VOLUME 9.3 uM^3 (9.5-12.4); MONOCYTE (%) 7.7 % (3-12); MONOCYTE COUNT 0.5 K/uL (0-0.8); NEUTROPHIL (%) 61.7 % (45-76); NEUTROPHIL COUNT 3.7 K/uL (1.8-6.4); PLATELET COUNT 172 K/uL (156-360); RBC DIS.WIDTH-CV 12.3 % (11.8-14.6); RBC DIS.WIDTH-SD 39.2 % (39-53); RED BLOOD COUNT 3.14 M/uL (3.80-5.20)
[2017-05-28 13:09] LABS: PROTHROMBIN TIME 11.4 SEC (10.2-12.9)
[2017-05-28 13:12] LABS: PTT 29.9 SEC (25-37)
[2017-05-28 13:14] LABS: CHLORIDE 99 mEq/L (99-109); POTASSIUM 4.8 mEq/L (3.7-5.4); SODIUM 137 mEq/L (136-147)
[2017-05-28 13:15] LABS: GLUCOSE 143 mg/dL (70-99)
[2017-05-28 13:17] LABS: ANION GAP 8 MEQ/L (2-14)
[2017-05-28 13:19] LABS: GFR ESTIMATE (CALCULATED) 32 mL/min/
[2017-05-28 13:20] LABS: UREA NITROGEN (BUN) 15 mg/dL (9-23)
[2017-05-28 13:27] LABS: TROP-I INTERPRETATION NEGATIVE; TROPONIN-I 0.04 ng/mL (0.0-0.30)
[2017-05-28 14:12] LABS: ADD MIUA? YES; BILIRUBIN NEGATIVE; BLOOD NEGATIVE; COLOR YELLOW ((YELLOW)); GLUCOSE (STRIP) 50; KETONES NEGATIVE; LEUKOCYTES TRACE; NITRITE NEGATIVE; PROTEIN (STRIP) 30; SPECIFIC GRAVITY 1.016 (1.000-1.030); UROBILINOGEN 0.2 MG/DL (0.2-1.0)
[2017-05-28 14:21] LABS: BACTERIA NONE SEEN /HPF; EPITHELIAL CELLS 1+ /HPF; HYALINE CASTS 0-5 /LPF; MUCUS TRACE /LPF; RED BLOOD CELLS 0-5 /HPF (0-5); UCUL ADDED? NO; WHITE BLOOD CELLS 0-5 /HPF (0-5)
[2017-05-28] MEDS ORDERED: BACTRIM,SEPT1 TABLET PO (14:52)
[2017-05-28] MEDS ORDERED: MELOXICAM7.5 MG PO (14:53)
[2017-05-28] MEDS ORDERED: POTASSIUM CHLO20 ME1 PO (14:53)
[2017-05-28] MEDS ORDERED: FUROSEMIDE20 MG PO (14:53)
[2017-05-28] MEDS ORDERED: LISINOPRIL10 MG PO (14:55)
[2017-05-28 19:23] VITALS: BP 119/57
[2017-05-28 22:30] LABS: TROP-I INTERPRETATION NEGATIVE; TROPONIN-I 0.05 ng/mL (0.0-0.30)
[2017-05-29 00:06] VITALS: BP 116/56
[2017-05-29 04:40] VITALS: BP 107/54
[2017-05-29 05:26] LABS: EOSINOPHIL (%) 6.7 % (0-5); EOSINOPHIL COUNT 0.3 K/uL (0-0.3); HEMATOCRIT 27.1 % (36.0-46.0); IMMATURE GRANULOCYTE (%) 0.2 % (0.0-0.7); INSTRUMENT ABS NEUTROPHIL CT 2.6 K/uL; LYMPHOCYTE COUNT 1.7 K/uL (1.0-2.8); MCH 27.8 PG (29.0-34.0); MCHC 31.7 G/DL (30.0-36.0); MCV 87.7 FL (83-99); MEAN PLAT.VOLUME 9.8 uM^3 (9.5-12.4); MONOCYTE (%) 8.3 % (3-12); MONOCYTE COUNT 0.4 K/uL (0-0.8); NEUTROPHIL (%) 51.5 % (45-76); NEUTROPHIL COUNT 2.6 K/uL (1.8-6.4); PLATELET COUNT 182 K/uL (156-360); RBC DIS.WIDTH-CV 12.3 % (11.8-14.6); RBC DIS.WIDTH-SD 39.4 % (39-53); RED BLOOD COUNT 3.09 M/uL (3.80-5.20); WHITE BLOOD COUNT 5.1 K/uL (4.1-10.2)
[2017-05-29 05:52] LABS: ANION GAP 6 MEQ/L (2-14); CHLORIDE 99 MEQ/L (99-109); GFR ESTIMATE (CALCULATED) 30 mL/min/; GLUCOSE 154 mg/dL (70-99); POTASSIUM 4.3 MEQ/L (3.7-5.4); SAMPLE HEMOLYSIS CHECK 0; SAMPLE ICTERIC CHECK 0; SAMPLE LIPEMIA CHECK 0; SODIUM 138 MEQ/L (136-147); UREA NITROGEN (BUN) 19 mg/dL (9-23)
[2017-05-29 11:50] VITALS: BP 100/58
[2017-05-29 16:46] VITALS: BP 92/52
[2017-05-29 20:00] VITALS: BP 106/65
[2017-05-29 21:02] LABS: METH RESISTANT S AUREUS PCR POSITIVE (NEGATIVE)
[2017-05-29 21:03] LABS: PROBE CHECK PASS; SPECIMEN PROCESSING CONTROL PASS
[2017-05-30 00:02] VITALS: BP 91/47
[2017-05-30 03:00] VITALS: BP 92/48
[2017-05-30 08:00] VITALS: BP 122/56
[2017-05-30 12:19] VITALS: BP 96/50
[2017-05-30] MEDS ORDERED: XARELTO20 MG PO (15:34)
[2017-05-30 16:05] VITALS: BP 101/58
== END 2017-05-30 18:35 | disposition home or self-care (01) ==
LOC: EME 11:53 → EDOF 14:36 → 5WEST 14:36 → EDOF 14:36 → ENRESERV 14:41 → 5WEST 15:58
PROVIDERS: Emergency Medicine; Family Medicine
DX: J44.1 Chronic obstructive pulmonary disease with (acute) exacerbation (principal); J96.21 Acute and chronic respiratory failure with hypoxia; I48.91 Unspecified atrial fibrillation; I13.0 Hypertensive heart and chronic kidney disease with heart failure and stage 1 through stage 4 chronic kidney disease, or unspecified chronic kidney disease; I50.33 Acute on chronic diastolic (congestive) heart failure; E11.22 Type 2 diabetes mellitus with diabetic chronic kidney disease; N18.3 Chronic kidney disease, stage 3 (moderate); Z79.01 Long term (current) use of anticoagulants; Z99.81 Dependence on supplemental oxygen; G47.33 Obstructive sleep apnea (adult) (pediatric); I25.10 Atherosclerotic heart disease of native coronary artery without angina pectoris; R60.0 Localized edema; Z22.322 Carrier or suspected carrier of Methicillin resistant Staphylococcus aureus; E78.5 Hyperlipidemia, unspecified; Z87.01 Personal history of pneumonia (recurrent); E66.01 Morbid (severe) obesity due to excess calories; Z79.82 Long term (current) use of aspirin; F32.9 Major depressive disorder, single episode, unspecified; D64.9 Anemia, unspecified; I27.20 Pulmonary hypertension, unspecified; M19.90 Unspecified osteoarthritis, unspecified site; K21.9 Gastro-esophageal reflux disease without esophagitis; Z79.4 Long term (current) use of insulin; Z88.8 Allergy status to other drugs, medicaments and biological substances
CPT/HCPCS: 71010; 80048; 80069; 81003; 83880; 84484; 85025; 85610; 85730; 87641; 93005; 94640; 94640 76; 94660; 94799; 99202; 99281; 99285; G0378

== ENCOUNTER 2017-05-31 19:57 | Emergency (ER) | payer OTHER ==
[~2017-05-31] VITALS: Ht 160 cm; Wt 109.1 kg
[~2017-05-31 19:57] MED LIST changes: +BACTRIM,SEPT1 TABLET PO; +LISINOPRIL10 MG PO; +POTASSIUM CHLO20 ME1 PO; +XARELTO20 MG PO
[2017-05-31 21:06] LABS: EOSINOPHIL (%) 9.4 % (0-5); EOSINOPHIL COUNT 0.5 K/uL (0-0.3); HEMATOCRIT 27.4 % (36.0-46.0); IMMATURE GRANULOCYTE (%) 0.4 % (0.0-0.7); INSTRUMENT ABS NEUTROPHIL CT 2.5 K/uL; LYMPHOCYTE COUNT 1.6 K/uL (1.0-2.8); MCH 28.5 PG (29.0-34.0); MCHC 32.8 G/DL (30.0-36.0); MCV 86.7 FL (83-99); MEAN PLAT.VOLUME 9.1 uM^3 (9.5-12.4); MONOCYTE (%) 8.1 % (3-12); MONOCYTE COUNT 0.4 K/uL (0-0.8); NEUTROPHIL (%) 49.9 % (45-76); NEUTROPHIL COUNT 2.5 K/uL (1.8-6.4); PLATELET COUNT 207 K/uL (156-360); RBC DIS.WIDTH-CV 12.4 % (11.8-14.6); RBC DIS.WIDTH-SD 38.9 % (39-53); RED BLOOD COUNT 3.16 M/uL (3.80-5.20); WHITE BLOOD COUNT 4.9 K/uL (4.1-10.2)
[2017-05-31 21:12] LABS: INTER. NORMALIZED RATIO 1.1
[2017-05-31 21:14] LABS: PTT 33.2 SEC (25-37)
[2017-05-31 21:16] LABS: CHLORIDE 98 mEq/L (99-109); SODIUM 141 mEq/L (136-147)
[2017-05-31 21:17] LABS: POTASSIUM 5.3 mEq/L (3.7-5.4)
[2017-05-31 21:19] LABS: GLUCOSE 143 mg/dL (70-99)
[2017-05-31 21:20] LABS: ANION GAP 10 MEQ/L (2-14); TOTAL BILIRUBIN 0.2 mg/dL (0.0-1.0)
[2017-05-31 21:22] LABS: ALKALINE PHOSPHATASE 90 IU/L (3-129); GFR ESTIMATE (CALCULATED) 27 mL/min/
[2017-05-31 21:24] LABS: DIRECT BILIRUBIN 0.1 mg/dL (0.0-0.3)
[2017-05-31 21:26] LABS: LIPASE 86 U/L (1.0-51.0)
[2017-05-31 21:28] LABS: TROP-I INTERPRETATION NEGATIVE; TROPONIN-I 0.02 ng/mL (0.0-0.30); UREA NITROGEN (BUN) 32 mg/dL (9-23)
[2017-06-01 00:28] LABS: ADD MIUA? NO; BILIRUBIN NEGATIVE; BLOOD NEGATIVE; COLOR YELLOW ((YELLOW)); GLUCOSE (STRIP) NEGATIVE; KETONES NEGATIVE; LEUKOCYTES NEGATIVE; NITRITE NEGATIVE; PROTEIN (STRIP) NEGATIVE; SPECIFIC GRAVITY 1.011 (1.000-1.030); UCUL ADDED? NO; UROBILINOGEN 0.2 MG/DL (0.2-1.0)
[2017-06-01] MEDS ORDERED: KEFLEX500 MG PO (00:44)
[2017-06-01] MEDS ORDERED: [UNRECOGNIZED DRUG - OTHER] TP (00:44)
[2017-06-01 01:15] VITALS: BP 153/78
== END 2017-06-01 01:33 | disposition home or self-care (01) ==
LOC: EME 19:57
PROVIDERS: Emergency Medicine
DX: S30.814A Abrasion of vagina and vulva, initial encounter (principal); X58.XXXA Exposure to other specified factors, initial encounter; N93.9 Abnormal uterine and vaginal bleeding, unspecified; R42 Dizziness and giddiness; I10 Essential (primary) hypertension; E78.5 Hyperlipidemia, unspecified; J44.9 Chronic obstructive pulmonary disease, unspecified; E11.9 Type 2 diabetes mellitus without complications; Z79.4 Long term (current) use of insulin; Z79.01 Long term (current) use of anticoagulants; Z79.82 Long term (current) use of aspirin; Z90.49 Acquired absence of other specified parts of digestive tract
CPT/HCPCS: 74176; 80048; 80076; 81003; 83605; 83690; 84484; 85025; 85610; 85730; 99281; 99285

== ENCOUNTER 2017-11-27 15:33 | Inpatient (IN) | payer OTHER ==
[~2017-11-27] VITALS: Ht 160 cm; Wt 109.0 kg
[~2017-11-27 15:33] MED LIST changes: +[UNRECOGNIZED DRUG - OTHER] TP
[2017-11-27 17:40] LABS: BASOPHIL (%) 0.6 % (0-1); EOSINOPHIL COUNT 0.2 K/uL (0-0.3); HEMATOCRIT 26.5 % (36.0-46.0); HEMOGLOBIN 8.7 G/DL (11.9-15.5); IMMATURE GRANULOCYTE (%) 0.2 % (0.0-0.7); LYMPHOCYTE (%) 33.5 % (15-42); LYMPHOCYTE COUNT 1.7 K/uL (1.0-2.8); MCH 28.4 PG (29.0-34.0); MCHC 32.8 G/DL (30.0-36.0); MCV 86.6 FL (83-99); MONOCYTE (%) 9.2 % (3-12); MONOCYTE COUNT 0.5 K/uL (0-0.8); NEUTROPHIL (%) 52.5 % (45-76); NEUTROPHIL COUNT 2.7 K/uL (1.8-6.4); PLATELET COUNT 197 K/uL (156-360); RBC DIS.WIDTH-CV 12.5 % (11.8-14.6); RBC DIS.WIDTH-SD 39.7 % (39-53); RED BLOOD COUNT 3.06 M/uL (3.80-5.20); WHITE BLOOD COUNT 5.2 K/uL (4.1-10.2)
[2017-11-27 17:54] LABS: ALBUMIN 3.9 g/dL (3.2-4.8); CHLORIDE 93 mEq/L (99-109); POTASSIUM 5.5 mEq/L (3.7-5.4); SODIUM 133 mEq/L (136-147)
[2017-11-27 17:55] LABS: MAGNESIUM 2.4 mg/dL (1.3-2.7)
[2017-11-27 17:56] LABS: GLUCOSE 141 mg/dL (70-99)
[2017-11-27 17:58] LABS: TOTAL BILIRUBIN 0.3 mg/dL (0.0-1.0)
[2017-11-27 18:00] LABS: ALKALINE PHOSPHATASE 83 IU/L (3-129); CREATININE 3.7 mg/dL (0.6-1.3); GFR ESTIMATE (CALCULATED) 13 mL/min/
[2017-11-27 18:01] LABS: UREA NITROGEN (BUN) 74 mg/dL (9-23)
[2017-11-27 18:02] LABS: AST (GOT) 18 IU/L (2-34)
[2017-11-27 18:03] LABS: ALT (GPT) 14 IU/L (3-49)
[2017-11-27 18:04] LABS: TROP-I INTERPRETATION NEGATIVE; TROPONIN-I 0.01 ng/mL (0.0-0.30)
[2017-11-27] MEDS ORDERED: XARELTO20 MG PO (18:34)
[2017-11-27 22:30] VITALS: BP 140/78
[2017-11-28 03:30] VITALS: BP 133/58
[2017-11-28 07:03] LABS: BASOPHIL (%) 0.5 % (0-1); EOSINOPHIL (%) 3.6 % (0-5); EOSINOPHIL COUNT 0.2 K/uL (0-0.3); HEMATOCRIT 26.1 % (36.0-46.0); HEMOGLOBIN 8.5 G/DL (11.9-15.5); IMMATURE GRANULOCYTE (%) 0.3 % (0.0-0.7); LYMPHOCYTE (%) 24.1 % (15-42); LYMPHOCYTE COUNT 1.5 K/uL (1.0-2.8); MCH 28.5 PG (29.0-34.0); MCHC 32.6 G/DL (30.0-36.0); MCV 87.6 FL (83-99); MONOCYTE (%) 6.5 % (3-12); MONOCYTE COUNT 0.4 K/uL (0-0.8); PLATELET COUNT 193 K/uL (156-360); RBC DIS.WIDTH-CV 12.7 % (11.8-14.6); RED BLOOD COUNT 2.98 M/uL (3.80-5.20); WHITE BLOOD COUNT 6.2 K/uL (4.1-10.2)
[2017-11-28 07:21] LABS: CHLORIDE 99 MEQ/L (99-109); GFR ESTIMATE (CALCULATED) 20 mL/min/; GLUCOSE 116 mg/dL (70-99); POTASSIUM 5.5 MEQ/L (3.7-5.4); SODIUM 135 MEQ/L (136-147); UREA NITROGEN (BUN) 58 mg/dL (9-23)
[2017-11-28 07:25] VITALS: BP 118/85
[2017-11-28 07:25] LABS: CREATININE 2.6 MG/DL (0.6-1.3)
[2017-11-28 12:29] VITALS: BP 127/59
[2017-11-28 12:31] LABS: APPEARANCE CLEAR ((CLEAR)); BILIRUBIN NEGATIVE; BLOOD NEGATIVE; COLOR STRAW ((YELLOW)); GLUCOSE (STRIP) NEGATIVE; KETONES NEGATIVE; LEUKOCYTES NEGATIVE; NITRITE NEGATIVE; PROTEIN (STRIP) NEGATIVE; SPECIFIC GRAVITY 1.009 (1.000-1.030); UCUL ADDED? NO; UROBILINOGEN 0.2 MG/DL (0.2-1.0)
[2017-11-28 15:20] VITALS: BP 135/68
[2017-11-28 19:38] VITALS: BP 129/80
[2017-11-28 20:03] LABS: CHLORIDE 101 MEQ/L (99-109); GFR ESTIMATE (CALCULATED) 25 mL/min/; GLUCOSE 159 mg/dL (70-99); POTASSIUM 5.4 MEQ/L (3.7-5.4); SODIUM 138 MEQ/L (136-147); UREA NITROGEN (BUN) 47 mg/dL (9-23)
[2017-11-28 20:05] LABS: CREATININE 2.1 MG/DL (0.6-1.3)
[2017-11-29 05:47] LABS: CARBON DIOXIDE (BICARBONATE) 38.5 MEQ/L (20-31)
[2017-11-29 06:31] LABS: BASOPHIL (%) 0.4 % (0-1); EOSINOPHIL (%) 4.9 % (0-5); EOSINOPHIL COUNT 0.3 K/uL (0-0.3); HEMOGLOBIN 8.2 G/DL (11.9-15.5); IMMATURE GRANULOCYTE (%) 0.4 % (0.0-0.7); LYMPHOCYTE (%) 24.7 % (15-42); LYMPHOCYTE COUNT 1.3 K/uL (1.0-2.8); MCHC 31.5 G/DL (30.0-36.0); MCV 88.7 FL (83-99); MONOCYTE (%) 7.6 % (3-12); MONOCYTE COUNT 0.4 K/uL (0-0.8); NEUTROPHIL COUNT 3.2 K/uL (1.8-6.4); PLATELET COUNT 186 K/uL (156-360); RBC DIS.WIDTH-CV 12.8 % (11.8-14.6); RBC DIS.WIDTH-SD 41.5 % (39-53); RED BLOOD COUNT 2.93 M/uL (3.80-5.20); WHITE BLOOD COUNT 5.1 K/uL (4.1-10.2)
[2017-11-29 06:56] LABS: CHLORIDE 104 MEQ/L (99-109); CREATININE 1.8 MG/DL (0.6-1.3); GFR ESTIMATE (CALCULATED) 30 mL/min/; GLUCOSE 131 mg/dL (70-99); POTASSIUM 5.1 MEQ/L (3.7-5.4); SODIUM 141 MEQ/L (136-147); UREA NITROGEN (BUN) 39 mg/dL (9-23)
[2017-11-29 08:15] VITALS: BP 128/55
[2017-11-29 08:15] LABS: FOLIC ACID (FOLATE) 21.8 NG/ML (5.0-22.0)
[2017-11-29 09:34] LABS: ALBUMIN 3.6 G/DL (3.2-4.8); CHLORIDE 103 MEQ/L (99-109); CREATININE 1.8 MG/DL (0.6-1.3); GFR ESTIMATE (CALCULATED) 30 mL/min/; GLUCOSE 131 mg/dL (70-99); IRON 45 MCG/DL (35-150); PHOSPHORUS 3.2 mg/dL (2.5-4.9); POTASSIUM 5.1 MEQ/L (3.7-5.4); SODIUM 140 MEQ/L (136-147); TRANSFERRIN (TIBC) 208.4 mg/dL (215-380); TRANSFERRIN SATUR. 22 % (20-55); UREA NITROGEN (BUN) 39 mg/dL (9-23)
[2017-11-29 12:01] VITALS: BP 135/71
[2017-11-29 15:13] LABS: FERRITIN 66 NG/ML (10-291)
[2017-11-29 15:57] VITALS: BP 140/67
[2017-11-29 19:41] VITALS: BP 151/73
[2017-11-29 23:44] VITALS: BP 142/76
[2017-11-30 03:28] VITALS: BP 160/79
[2017-11-30 07:16] LABS: ALBUMIN 3.8 G/DL (3.2-4.8); CHLORIDE 101 MEQ/L (99-109); GFR ESTIMATE (CALCULATED) 44 mL/min/; GLUCOSE 105 mg/dL (70-99); PHOSPHORUS 2.3 mg/dL (2.5-4.9); POTASSIUM 4.9 MEQ/L (3.7-5.4); SODIUM 139 MEQ/L (136-147); UREA NITROGEN (BUN) 28 mg/dL (9-23)
[2017-11-30 07:18] LABS: CREATININE 1.3 MG/DL (0.6-1.3)
[2017-11-30 08:06] VITALS: BP 140/85
[2017-11-30 08:27] LABS: INTACT PARATHYROID HORMONE 80 pg/mL (10-69)
[2017-11-30 12:14] VITALS: BP 149/91
[2017-11-30 15:52] VITALS: BP 149/81
[2017-11-30 20:04] VITALS: BP 158/81
[2017-12-01 00:02] VITALS: BP 138/74
[2017-12-01 03:53] VITALS: BP 141/70
[2017-12-01 07:12] VITALS: BP 143/71
[2017-12-01 07:52] LABS: ALBUMIN 3.6 G/DL (3.2-4.8); CHLORIDE 102 MEQ/L (99-109); CREATININE 1.2 MG/DL (0.6-1.3); GFR ESTIMATE (CALCULATED) 48 mL/min/; GLUCOSE 104 mg/dL (70-99); POTASSIUM 5.5 MEQ/L (3.7-5.4); SODIUM 141 MEQ/L (136-147); UREA NITROGEN (BUN) 26 mg/dL (9-23)
[2017-12-01 11:32] VITALS: BP 142/81
[2017-12-01 16:02] VITALS: BP 114/63
[2017-12-01 20:01] VITALS: BP 180/76
[2017-12-02 01:18] VITALS: BP 137/67
[2017-12-02 03:57] VITALS: BP 130/73
[2017-12-02 07:20] LABS: UR CREATININE CONCENTRATION 44.1 MG/DL
[2017-12-02 07:32] VITALS: BP 163/74
[2017-12-02 08:39] LABS: CHLORIDE 98 MEQ/L (99-109); GFR ESTIMATE (CALCULATED) > 59 mL/min/; GLUCOSE 116 mg/dL (70-99); POTASSIUM 4.5 MEQ/L (3.7-5.4); SODIUM 139 MEQ/L (136-147)
[2017-12-02 09:03] LABS: CREATININE 1.3 MG/DL (0.6-1.3); UREA NITROGEN (BUN) 27 mg/dL (9-23)
[2017-12-02 12:15] VITALS: BP 116/65
[2017-12-02 15:59] VITALS: BP 129/70
[2017-12-02 20:28] VITALS: BP 132/77
[2017-12-03] VITALS (13 sets, daily range): BP systolic 97–153; BP diastolic 52–91
[2017-12-03 06:55] LABS: BASOPHIL (%) 0.5 % (0-1); EOSINOPHIL COUNT 0.3 K/uL (0-0.3); HEMATOCRIT 24.2 % (36.0-46.0); HEMOGLOBIN 7.9 G/DL (11.9-15.5); IMMATURE GRANULOCYTE (%) 0.2 % (0.0-0.7); LYMPHOCYTE (%) 23.2 % (15-42); LYMPHOCYTE COUNT 1.4 K/uL (1.0-2.8); MCH 27.9 PG (29.0-34.0); MCHC 32.6 G/DL (30.0-36.0); MCV 85.5 FL (83-99); MONOCYTE (%) 5.8 % (3-12); MONOCYTE COUNT 0.4 K/uL (0-0.8); NEUTROPHIL (%) 66.3 % (45-76); NEUTROPHIL COUNT 4.1 K/uL (1.8-6.4); PLATELET COUNT 170 K/uL (156-360); RBC DIS.WIDTH-CV 12.7 % (11.8-14.6); RBC DIS.WIDTH-SD 38.8 % (39-53); RED BLOOD COUNT 2.83 M/uL (3.80-5.20); WHITE BLOOD COUNT 6.2 K/uL (4.1-10.2)
[2017-12-03 07:20] LABS: CHLORIDE 99 MEQ/L (99-109); CREATININE 1.4 MG/DL (0.6-1.3); GFR ESTIMATE (CALCULATED) 40 mL/min/; GLUCOSE 121 mg/dL (70-99); POTASSIUM 4.6 MEQ/L (3.7-5.4); SODIUM 138 MEQ/L (136-147); UREA NITROGEN (BUN) 30 mg/dL (9-23)
[2017-12-04 00:15] VITALS: BP 119/65
[2017-12-04 03:54] VITALS: BP 124/86
[2017-12-04 06:43] LABS: BASOPHIL (%) 0.4 % (0-1); EOSINOPHIL (%) 3.4 % (0-5); EOSINOPHIL COUNT 0.2 K/uL (0-0.3); HEMATOCRIT 29.4 % (36.0-46.0); HEMOGLOBIN 9.7 G/DL (11.9-15.5); IMM.RETIC FRACTION 21.7 % (3-19); IMMATURE GRANULOCYTE (%) 0.6 % (0.0-0.7); LYMPHOCYTE (%) 22.4 % (15-42); LYMPHOCYTE COUNT 1.6 K/uL (1.0-2.8); MCH 27.8 PG (29.0-34.0); MCV 84.2 FL (83-99); MONOCYTE (%) 6.3 % (3-12); MONOCYTE COUNT 0.4 K/uL (0-0.8); NEUTROPHIL (%) 66.9 % (45-76); NEUTROPHIL COUNT 4.7 K/uL (1.8-6.4); PLATELET COUNT 173 K/uL (156-360); RBC DIS.WIDTH-CV 13.9 % (11.8-14.6); RBC DIS.WIDTH-SD 42.3 % (39-53); RETIC HGB EQUIVALENT 31.2 (28-36); RETICULOCYTE COUNT 2.3 % (0.5-1.8)
[2017-12-04 06:48] LABS: RED BLOOD COUNT 3.49 M/uL (3.80-5.20)
[2017-12-04 07:03] LABS: C-REACTIVE PROTEIN 5.3 MG/L (0-10); CHLORIDE 98 MEQ/L (99-109); CREATININE 1.3 MG/DL (0.6-1.3); GFR ESTIMATE (CALCULATED) 44 mL/min/; GLUCOSE 124 mg/dL (70-99); POTASSIUM 4.4 MEQ/L (3.7-5.4); SODIUM 140 MEQ/L (136-147); UREA NITROGEN (BUN) 31 mg/dL (9-23)
[2017-12-04 07:44] VITALS: BP 121/69
[2017-12-04 08:05] LABS: ERTH.SED.RATE 31 MM/HR (0-30)
[2017-12-04 11:47] VITALS: BP 141/66
[2017-12-04] MEDS ORDERED: CARVEDILOL25 MG PO (11:51)
== END 2017-12-04 15:30 | disposition home or self-care (01) | DRG 683 ==
LOC: EME 15:33 → 2EAST 20:00 → EDOF 20:00 → ENRESERV 20:21 → 2EAST 22:37 → ENPENDDIS 12-04 → 2EAST 12-04 15:30
PROVIDERS: Emergency Medicine; Family Medicine; Internal Medicine Nephrology
PROC: 5A09357 Assistance with Respiratory Ventilation, Less than 24 Consecutive Hours, Continuous Positive Airway Pressure (ICD-10-PCS; principal; 2017-11-28)
PROC: 30233N1 Transfusion of Nonautologous Red Blood Cells into Peripheral Vein, Percutaneous Approach (ICD-10-PCS; 2017-12-03)
DX: N17.9 Acute kidney failure, unspecified (principal); E87.2 Acidosis; I95.1 Orthostatic hypotension; T50.1X5A Adverse effect of loop [high-ceiling] diuretics, initial encounter; T46.4X5A Adverse effect of angiotensin-converting-enzyme inhibitors, initial encounter; J96.10 Chronic respiratory failure, unspecified whether with hypoxia or hypercapnia; Z99.81 Dependence on supplemental oxygen; I48.2 Chronic atrial fibrillation; I13.0 Hypertensive heart and chronic kidney disease with heart failure and stage 1 through stage 4 chronic kidney disease, or unspecified chronic kidney disease; I50.32 Chronic diastolic (congestive) heart failure; N18.3 Chronic kidney disease, stage 3 (moderate); E11.22 Type 2 diabetes mellitus with diabetic chronic kidney disease; E11.21 Type 2 diabetes mellitus with diabetic nephropathy; E86.0 Dehydration; N25.81 Secondary hyperparathyroidism of renal origin; G47.33 Obstructive sleep apnea (adult) (pediatric); J44.9 Chronic obstructive pulmonary disease, unspecified; I25.10 Atherosclerotic heart disease of native coronary artery without angina pectoris; K21.9 Gastro-esophageal reflux disease without esophagitis; E78.5 Hyperlipidemia, unspecified; D63.1 Anemia in chronic kidney disease; F34.1 Dysthymic disorder; E66.01 Morbid (severe) obesity due to excess calories; Z68.41 Body mass index [BMI] 40.0-44.9, adult; Z79.01 Long term (current) use of anticoagulants; Z79.4 Long term (current) use of insulin; Z79.82 Long term (current) use of aspirin; Z87.01 Personal history of pneumonia (recurrent)
CPT/HCPCS: 76770; 80048; 80048 91; 80053; 80069; 81003; 82043; 82306; 82570; 82607; 82728; 82746; 82803; 82948; 83540; 83735; 83970; 84156; 84466; 84484; 85025; 85046; 85651; 86140; 86850; 86900; 86901; 86920; 87641; 93005; 94640; 94640 76; 94660; 94799; 99202; 99281; 99285; J1756; J1940; J7030; J7040; J7050; J7120; P9016; Q0138

== ENCOUNTER 2017-12-23 17:30 | Emergency (ER) | payer OTHER ==
[~2017-12-23] VITALS: Ht 160 cm; Wt 109.7 kg
[~2017-12-23 17:30] MED LIST changes: +CARVEDILOL25 MG PO
[2017-12-23 18:12] LABS: BASOPHIL (%) 0.4 % (0-1); EOSINOPHIL (%) 4.6 % (0-5); EOSINOPHIL COUNT 0.2 K/uL (0-0.3); HEMATOCRIT 27.2 % (36.0-46.0); HEMOGLOBIN 8.6 G/DL (11.9-15.5); IMMATURE GRANULOCYTE (%) 0.2 % (0.0-0.7); LYMPHOCYTE (%) 23.6 % (15-42); LYMPHOCYTE COUNT 1.2 K/uL (1.0-2.8); MCHC 31.6 G/DL (30.0-36.0); MCV 91.6 FL (83-99); MONOCYTE (%) 6.8 % (3-12); MONOCYTE COUNT 0.4 K/uL (0-0.8); NEUTROPHIL (%) 64.4 % (45-76); NEUTROPHIL COUNT 3.4 K/uL (1.8-6.4); PLATELET COUNT 177 K/uL (156-360); RBC DIS.WIDTH-CV 14.1 % (11.8-14.6); RBC DIS.WIDTH-SD 47.7 % (39-53); RED BLOOD COUNT 2.97 M/uL (3.80-5.20); WHITE BLOOD COUNT 5.3 K/uL (4.1-10.2)
[2017-12-23 18:15] LABS: INTER. NORMALIZED RATIO 1.2
[2017-12-23 18:18] LABS: CHLORIDE 95 mEq/L (99-109); POTASSIUM 4.3 mEq/L (3.7-5.4); SODIUM 141 mEq/L (136-147)
[2017-12-23 18:19] LABS: GLUCOSE 130 mg/dL (70-99)
[2017-12-23 18:23] LABS: CREATININE 1.4 mg/dL (0.6-1.3); GFR ESTIMATE (CALCULATED) 40 mL/min/
[2017-12-23 18:24] LABS: UREA NITROGEN (BUN) 17 mg/dL (9-23)
[2017-12-23 18:29] LABS: TROP-I INTERPRETATION NEGATIVE; TROPONIN-I < 0.01 ng/mL (0.0-0.30)
[2017-12-23 19:49] LABS: APPEARANCE SL.HAZY ((CLEAR)); BILIRUBIN NEGATIVE; BLOOD NEGATIVE; COLOR YELLOW ((YELLOW)); GLUCOSE (STRIP) NEGATIVE; KETONES NEGATIVE; LEUKOCYTES SMALL; NITRITE NEGATIVE; PROTEIN (STRIP) NEGATIVE; SPECIFIC GRAVITY 1.013 (1.000-1.030)
[2017-12-23 20:03] LABS: BACTERIA RARE /HPF; EPITHELIAL CELLS 1+ /HPF; MUCUS TRACE /LPF; RED BLOOD CELLS 0-5 /HPF (0-5); UCUL ADDED? YES
[2017-12-23 23:07] VITALS: BP 117/82
== END 2017-12-23 23:09 | disposition home or self-care (01) ==
LOC: EME 17:30
PROVIDERS: Emergency Medicine
DX: R55 Syncope and collapse (principal); J44.9 Chronic obstructive pulmonary disease, unspecified; Z99.81 Dependence on supplemental oxygen; I11.0 Hypertensive heart disease with heart failure; I50.9 Heart failure, unspecified; I48.91 Unspecified atrial fibrillation; Z79.01 Long term (current) use of anticoagulants; E78.5 Hyperlipidemia, unspecified; E11.9 Type 2 diabetes mellitus without complications; K21.9 Gastro-esophageal reflux disease without esophagitis; F41.9 Anxiety disorder, unspecified; F32.9 Major depressive disorder, single episode, unspecified; Z90.49 Acquired absence of other specified parts of digestive tract; Z88.8 Allergy status to other drugs, medicaments and biological substances
CPT/HCPCS: 70450; 71046; 80048; 81003; 83880; 84484; 85025; 85610; 87086; 93005; 99281; 99285

== ENCOUNTER 2017-12-29 21:28 | Inpatient (IN) | payer OTHER ==
[~2017-12-29] VITALS: Ht 160 cm; Wt 111.6 kg
[2017-12-29 21:41] LABS: HEMATOCRIT 30.3 % (36.0-46.0); HEMOGLOBIN 9.4 G/DL (11.9-15.5); MCH 29.3 PG (29.0-34.0); MCV 94.4 FL (83-99); PLATELET COUNT 165 K/uL (156-360); RBC DIS.WIDTH-CV 14.5 % (11.8-14.6); RBC DIS.WIDTH-SD 49.4 % (39-53); RED BLOOD COUNT 3.21 M/uL (3.80-5.20); WHITE BLOOD COUNT 5.5 K/uL (4.1-10.2)
[2017-12-29 21:57] LABS: ALBUMIN 4.1 g/dL (3.2-4.8); CHLORIDE 92 mEq/L (99-109); POTASSIUM 4.5 mEq/L (3.7-5.4); SODIUM 134 mEq/L (136-147)
[2017-12-29 22:00] LABS: GLUCOSE 195 mg/dL (70-99); TOTAL PROTEIN 7.4 g/dL (6.4-8.3)
[2017-12-29 22:02] LABS: TOTAL BILIRUBIN 0.4 mg/dL (0.0-1.0)
[2017-12-29 22:03] LABS: ALKALINE PHOSPHATASE 108 IU/L (3-129); CREATININE 1.4 mg/dL (0.6-1.3); GFR ESTIMATE (CALCULATED) 40 mL/min/
[2017-12-29 22:04] LABS: UREA NITROGEN (BUN) 18 mg/dL (9-23)
[2017-12-29 22:05] LABS: AST (GOT) 17 IU/L (2-34)
[2017-12-29 22:06] LABS: ALT (GPT) 23 IU/L (3-49)
[2017-12-29 22:12] LABS: TROP-I INTERPRETATION NEGATIVE; TROPONIN-I < 0.01 ng/mL (0.0-0.30)
[2017-12-29 23:18] LABS: VENOUS PCO2 109 mm Hg (41-51)
[2017-12-29 23:19] LABS: CARBON DIOXIDE (BICARBONATE) > 40.0 MEQ/L (20-31)
[2017-12-30] MEDS ORDERED: NEURONTIN400 MG PO (01:02)
[2017-12-30] MEDS ORDERED: SPIRIVA RESPIMAT4 GM IH (01:03)
[2017-12-30] MEDS ORDERED: SYMBICORT60 INHALAT IH (01:04)
[2017-12-30] MEDS ORDERED: ESCITALOPRAM OX10 MG PO (01:04)
[2017-12-30] MEDS ORDERED: DESYREL100 MG PO (01:06)
[2017-12-30] MEDS ORDERED: FEOSOL325 MG PO (01:06)
[2017-12-30] MEDS ORDERED: LITE COAT ASPI325 M1 PO (01:06)
[2017-12-30] MEDS ORDERED: LIPITOR20 MG PO (01:07)
[2017-12-30] MEDS ORDERED: ASCORBIC ACID500 M3 PO (01:07)
[2017-12-30] MEDS ORDERED: THEO-DUR,THEOC300 MG PO (01:07)
[2017-12-30] MEDS ORDERED: K-DUR20 MEQ PO (01:08)
[2017-12-30] MEDS ORDERED: LASIX20 MG PO (01:08)
[2017-12-30] MEDS ORDERED: SINGULAIR10 MG PO (01:08)
[2017-12-30] MEDS ORDERED: VITAMIN D5000 UNI1 PO (01:09)
[2017-12-30] MEDS ORDERED: NITROSTAT0.4 MG SL (01:10)
[2017-12-30] MEDS ORDERED: VITAMIN B-122000 MC1 PO (01:10)
[2017-12-30] MEDS ORDERED: XARELTO20 MG PO (01:11)
[2017-12-30 04:18] VITALS: BP 124/68
[2017-12-30 07:42] VITALS: BP 131/67
[2017-12-30 12:00] VITALS: BP 131/81
[2017-12-30 15:22] VITALS: BP 133/77
[2017-12-30 19:56] VITALS: BP 153/87
[2017-12-30 23:48] VITALS: BP 149/87
[2017-12-31 04:13] VITALS: BP 168/89
[2017-12-31 06:43] LABS: CHLORIDE 92 MEQ/L (99-109); CREATININE 1.6 MG/DL (0.6-1.3); GFR ESTIMATE (CALCULATED) 35 mL/min/; GLUCOSE 237 mg/dL (70-99); POTASSIUM 4.9 MEQ/L (3.7-5.4); SODIUM 137 MEQ/L (136-147)
[2017-12-31 06:49] LABS: BASOPHIL (%) 0 % (0-1); EOSINOPHIL (%) 0 % (0-5); HEMATOCRIT 26.7 % (36.0-46.0); HEMOGLOBIN 8.4 G/DL (11.9-15.5); IMMATURE GRANULOCYTE (%) 0.8 % (0.0-0.7); LYMPHOCYTE (%) 8.2 % (15-42); LYMPHOCYTE COUNT 0.6 K/uL (1.0-2.8); MCHC 31.5 G/DL (30.0-36.0); MONOCYTE (%) 2.3 % (3-12); MONOCYTE COUNT 0.2 K/uL (0-0.8); NEUTROPHIL (%) 88.7 % (45-76); NEUTROPHIL COUNT 6.7 K/uL (1.8-6.4); PLATELET COUNT 160 K/uL (156-360); RBC DIS.WIDTH-CV 14.3 % (11.8-14.6); RBC DIS.WIDTH-SD 45.8 % (39-53); WHITE BLOOD COUNT 7.5 K/uL (4.1-10.2)
[2017-12-31 06:50] LABS: UREA NITROGEN (BUN) 28 mg/dL (9-23)
[2017-12-31 07:47] VITALS: BP 167/80
[2017-12-31 11:17] VITALS: BP 169/81
[2017-12-31 15:55] VITALS: BP 149/79
[2017-12-31 20:15] VITALS: BP 171/92
[2018-01-01 00:08] VITALS: BP 145/90
[2018-01-01 03:52] VITALS: BP 166/89
[2018-01-01 06:40] LABS: BASOPHIL (%) 0 % (0-1); EOSINOPHIL (%) 0 % (0-5); HEMOGLOBIN 9.2 G/DL (11.9-15.5); IMMATURE GRANULOCYTE (%) 0.5 % (0.0-0.7); LYMPHOCYTE (%) 7.2 % (15-42); LYMPHOCYTE COUNT 0.6 K/uL (1.0-2.8); MCHC 31.7 G/DL (30.0-36.0); MCV 88.1 FL (83-99); MONOCYTE (%) 2.5 % (3-12); MONOCYTE COUNT 0.2 K/uL (0-0.8); NEUTROPHIL (%) 89.8 % (45-76); NEUTROPHIL COUNT 7.8 K/uL (1.8-6.4); PLATELET COUNT 175 K/uL (156-360); RBC DIS.WIDTH-CV 14.6 % (11.8-14.6); RED BLOOD COUNT 3.29 M/uL (3.80-5.20); WHITE BLOOD COUNT 8.7 K/uL (4.1-10.2)
[2018-01-01 07:04] LABS: CHLORIDE 91 MEQ/L (99-109); CREATININE 1.5 MG/DL (0.6-1.3); GFR ESTIMATE (CALCULATED) 37 mL/min/; GLUCOSE 257 mg/dL (70-99); POTASSIUM 5.2 MEQ/L (3.7-5.4); SODIUM 136 MEQ/L (136-147); UREA NITROGEN (BUN) 34 mg/dL (9-23)
[2018-01-01 08:14] VITALS: BP 148/80
[2018-01-01] MEDS ORDERED: COREG25 M1 PO (09:45)
[2018-01-01] MEDS ORDERED: TRADJENTA5 MG PO (09:47)
[2018-01-01] MEDS ORDERED: NOVOLOG PE100 UNITS/ SC (09:48)
[2018-01-01] MEDS ORDERED: FLONASE16 G1 BOTH NARES (09:48)
[2018-01-01] MEDS ORDERED: ARMODAFINIL200 MG PO (09:50)
[2018-01-01] MEDS ORDERED: TIZANIDINE HCL4 MG PO (09:50)
[2018-01-01] MEDS ORDERED: LORAZEPAM0.5 MG PO (09:51)
[2018-01-01 12:09] VITALS: BP 142/88
[2018-01-01 15:26] VITALS: BP 139/88
[2018-01-01 19:27] VITALS: BP 149/89
[2018-01-02] VITALS (7 sets, daily range): BP systolic 128–183; BP diastolic 62–90
[2018-01-02 06:27] LABS: BASOPHIL (%) 0 % (0-1); EOSINOPHIL (%) 0 % (0-5); HEMATOCRIT 28.9 % (36.0-46.0); HEMOGLOBIN 9.4 G/DL (11.9-15.5); IMMATURE GRANULOCYTE (%) 0.5 % (0.0-0.7); LYMPHOCYTE (%) 7.8 % (15-42); LYMPHOCYTE COUNT 0.7 K/uL (1.0-2.8); MCH 28.3 PG (29.0-34.0); MCHC 32.5 G/DL (30.0-36.0); MONOCYTE (%) 2.3 % (3-12); MONOCYTE COUNT 0.2 K/uL (0-0.8); NEUTROPHIL (%) 89.4 % (45-76); NEUTROPHIL COUNT 7.8 K/uL (1.8-6.4); PLATELET COUNT 168 K/uL (156-360); RBC DIS.WIDTH-CV 14.6 % (11.8-14.6); RBC DIS.WIDTH-SD 46.3 % (39-53); RED BLOOD COUNT 3.32 M/uL (3.80-5.20); WHITE BLOOD COUNT 8.7 K/uL (4.1-10.2)
[2018-01-02 06:52] LABS: CHLORIDE 90 MEQ/L (99-109); CREATININE 1.2 MG/DL (0.6-1.3); GFR ESTIMATE (CALCULATED) 48 mL/min/; GLUCOSE 258 mg/dL (70-99); POTASSIUM 4.8 MEQ/L (3.7-5.4); SODIUM 134 MEQ/L (136-147); UREA NITROGEN (BUN) 33 mg/dL (9-23)
[2018-01-03 03:51] VITALS: BP 140/70
[2018-01-03 07:03] LABS: CHLORIDE 94 MEQ/L (99-109); CREATININE 1.1 MG/DL (0.6-1.3); GFR ESTIMATE (CALCULATED) 53 mL/min/; GLUCOSE 143 mg/dL (70-99); POTASSIUM 4.5 MEQ/L (3.7-5.4); SODIUM 137 MEQ/L (136-147); UREA NITROGEN (BUN) 35 mg/dL (9-23)
[2018-01-03 07:47] VITALS: BP 144/93
[2018-01-03 11:31] VITALS: BP 158/78
[2018-01-03] MEDS ORDERED: LEVAQUIN500 MG PO (12:17)
[2018-01-03] MEDS ORDERED: CARDIZEM CD180 MG PO (12:17)
[2018-01-03] MEDS ORDERED: PREDNISONE10 MG PO (12:17)
[2018-01-03] MEDS ORDERED: METOPROLOL TART75 MG PO (12:17)
== END 2018-01-03 13:50 | disposition home or self-care (01) | DRG 190 ==
LOC: EME → EDBD 21:28 → EDOF 12-30 01:59 → 3EAST 12-30 01:59 → ENRESERV 12-30 02:06 → 3EAST 12-30 03:59 → ENRESERV 01-01 13:16 → 2EASTP 01-01 15:04 → 2EAST 01-01 21:27
PROVIDERS: Emergency Medicine; Emergency Medicine Emergency Medical Services; Family Medicine
PROC: 5A09357 Assistance with Respiratory Ventilation, Less than 24 Consecutive Hours, Continuous Positive Airway Pressure (ICD-10-PCS; principal; 2017-12-30)
DX: J44.1 Chronic obstructive pulmonary disease with (acute) exacerbation (principal); J96.21 Acute and chronic respiratory failure with hypoxia; I13.0 Hypertensive heart and chronic kidney disease with heart failure and stage 1 through stage 4 chronic kidney disease, or unspecified chronic kidney disease; I50.32 Chronic diastolic (congestive) heart failure; N25.81 Secondary hyperparathyroidism of renal origin; Z68.41 Body mass index [BMI] 40.0-44.9, adult; E11.22 Type 2 diabetes mellitus with diabetic chronic kidney disease; D63.1 Anemia in chronic kidney disease; E66.01 Morbid (severe) obesity due to excess calories; G47.33 Obstructive sleep apnea (adult) (pediatric); E11.21 Type 2 diabetes mellitus with diabetic nephropathy; E78.5 Hyperlipidemia, unspecified; F31.9 Bipolar disorder, unspecified; I25.10 Atherosclerotic heart disease of native coronary artery without angina pectoris; I48.91 Unspecified atrial fibrillation; K21.9 Gastro-esophageal reflux disease without esophagitis; N18.3 Chronic kidney disease, stage 3 (moderate); F41.9 Anxiety disorder, unspecified; R00.0 Tachycardia, unspecified; Z87.01 Personal history of pneumonia (recurrent); Z99.81 Dependence on supplemental oxygen; Z90.49 Acquired absence of other specified parts of digestive tract; Z79.51 Long term (current) use of inhaled steroids; Z79.82 Long term (current) use of aspirin; Z83.3 Family history of diabetes mellitus; Z81.1 Family history of alcohol abuse and dependence
CPT/HCPCS: 71045; 80048; 80053; 82803; 82948; 83880; 84484; 85025; 85027; 87641; 93005; 94640; 94640 76; 94660; 94799; 99202; 99281; 99285; J1815; J1956; J2930; J7512

== ENCOUNTER 2018-01-18 17:27 | Inpatient (IN) | payer OTHER ==
[~2018-01-18] VITALS: Ht 160 cm; Wt 113.9 kg
[~2018-01-18 17:27] MED LIST changes: +ARMODAFINIL200 MG PO; +CARDIZEM CD180 MG PO; +DESYREL100 MG PO; +FEOSOL325 MG PO; +METOPROLOL TART75 MG PO; +NEURONTIN400 MG PO; +TIZANIDINE HCL4 MG PO; +VITAMIN B-122000 MC1 PO
[2018-01-18 18:24] LABS: BASOPHIL (%) 0.2 % (0-1); EOSINOPHIL (%) 2.8 % (0-5); EOSINOPHIL COUNT 0.2 K/uL (0-0.3); HEMOGLOBIN 9.3 G/DL (11.9-15.5); IMMATURE GRANULOCYTE (%) 0.5 % (0.0-0.7); LYMPHOCYTE (%) 12.1 % (15-42); LYMPHOCYTE COUNT 0.7 K/uL (1.0-2.8); MCH 29.2 PG (29.0-34.0); MCHC 32.1 G/DL (30.0-36.0); MONOCYTE (%) 7.4 % (3-12); MONOCYTE COUNT 0.5 K/uL (0-0.8); NEUTROPHIL COUNT 4.7 K/uL (1.8-6.4); PLATELET COUNT 156 K/uL (156-360); RBC DIS.WIDTH-CV 13.9 % (11.8-14.6); RBC DIS.WIDTH-SD 46.4 % (39-53); RED BLOOD COUNT 3.18 M/uL (3.80-5.20); WHITE BLOOD COUNT 6.1 K/uL (4.1-10.2)
[2018-01-18 18:25] LABS: CHLORIDE 90 mEq/L (99-109); POTASSIUM 4.8 mEq/L (3.7-5.4); SODIUM 138 mEq/L (136-147)
[2018-01-18 18:27] LABS: GLUCOSE 316 mg/dL (70-99); PTT 30.2 SEC (25-37)
[2018-01-18 18:31] LABS: GFR ESTIMATE (CALCULATED) 27 mL/min/
[2018-01-18 18:32] LABS: UREA NITROGEN (BUN) 34 mg/dL (9-23)
[2018-01-18 18:37] LABS: TROP-I INTERPRETATION NEGATIVE; TROPONIN-I < 0.01 ng/mL (0.0-0.30)
[2018-01-18 18:49] LABS: MCV 91.2 FL (83-99)
[2018-01-18] MEDS ORDERED: CARTIA XT180 MG PO (21:00)
[2018-01-18] MEDS ORDERED: FLEXERIL5 MG PO (21:04)
[2018-01-18] MEDS ORDERED: ZOFRAN4 MG PO (21:05)
[2018-01-18] MEDS ORDERED: FOLIC ACID0.8 MG PO (21:05)
[2018-01-18 23:03] VITALS: BP 173/77
[2018-01-19] VITALS (14 sets, daily range): BP systolic 115–146; BP diastolic 61–93
[2018-01-19 00:58] LABS: BICARBONATE 42.8 mEq/L (22-26); CARBOXY HGB 1.9 % (0-5); COMMENTS - BLOOD GASES C+A+; CONTINUOUS POS AIRWAY PRESSURE 14 cm H2O; DEVICE CPAP; METHEMOGLOBIN 0.8 % (0-1.5); O2 FLOW 15 L/MIN; PCO2 89 mm Hg (35-45); PO2 78 mm Hg (80-100); SITE LR
[2018-01-19 00:59] LABS: BASE EXCESS 13.8 mEq/L (-3 to +3); pH 7.29 (7.35-7.45)
[2018-01-19 01:56] LABS: BASE EXCESS 13.7 mEq/L (-3 to +3); BICARBONATE 42.2 mEq/L (22-26); CARBOXY HGB 2.2 % (0-5); COMMENTS - BLOOD GASES C+A+; CONTINUOUS POS AIRWAY PRESSURE 14 cm H2O; DEVICE CPAP; METHEMOGLOBIN 0.9 % (0-1.5); O2 FLOW 5 L/MIN; PCO2 82 mm Hg (35-45); PO2 52 mm Hg (80-100); SITE LR; pH 7.32 (7.35-7.45)
[2018-01-19 06:57] LABS: CHLORIDE 93 MEQ/L (99-109); CREATININE 1.9 MG/DL (0.6-1.3); GFR ESTIMATE (CALCULATED) 28 mL/min/; GLUCOSE 256 mg/dL (70-99); POTASSIUM 5.3 MEQ/L (3.7-5.4); SODIUM 138 MEQ/L (136-147); UREA NITROGEN (BUN) 38 mg/dL (9-23)
[2018-01-19 06:58] LABS: CARBON DIOXIDE (BICARBONATE) > 40.0 MEQ/L (20-31)
[2018-01-19 15:57] LABS: COMMENTS - BLOOD GASES A+C+; DEVICE NC; O2 FLOW 3 L/MIN; SITE LR
[2018-01-19 15:58] LABS: BICARBONATE 41.7 mEq/L (22-26); METHEMOGLOBIN 0.7 % (0-1.5); PCO2 95 mm Hg (35-45); PO2 60 mm Hg (80-100); pH 7.25 (7.35-7.45)
[2018-01-20] VITALS (17 sets, daily range): BP systolic 93–157; BP diastolic 58–96
[2018-01-20 06:16] LABS: BASOPHIL (%) 0 % (0-1); EOSINOPHIL (%) 0 % (0-5); HEMATOCRIT 27.7 % (36.0-46.0); HEMOGLOBIN 8.8 G/DL (11.9-15.5); IMMATURE GRANULOCYTE (%) 1.3 % (0.0-0.7); LYMPHOCYTE COUNT 0.4 K/uL (1.0-2.8); MCH 28.6 PG (29.0-34.0); MCHC 31.8 G/DL (30.0-36.0); MCV 89.9 FL (83-99); MONOCYTE COUNT 0.1 K/uL (0-0.8); NEUTROPHIL (%) 90.7 % (45-76); NEUTROPHIL COUNT 5.7 K/uL (1.8-6.4); PLATELET COUNT 144 K/uL (156-360); RBC DIS.WIDTH-CV 14.1 % (11.8-14.6); RBC DIS.WIDTH-SD 46.5 % (39-53); RED BLOOD COUNT 3.08 M/uL (3.80-5.20); WHITE BLOOD COUNT 6.3 K/uL (4.1-10.2)
[2018-01-20 06:42] LABS: CHLORIDE 92 MEQ/L (99-109); CREATININE 1.9 MG/DL (0.6-1.3); GFR ESTIMATE (CALCULATED) 28 mL/min/; GLUCOSE 290 mg/dL (70-99); POTASSIUM 5.1 MEQ/L (3.7-5.4); SODIUM 137 MEQ/L (136-147); UREA NITROGEN (BUN) 47 mg/dL (9-23)
[2018-01-21 07:00] VITALS: BP 118/70
[2018-01-21 07:14] LABS: BASOPHIL (%) 0 % (0-1); EOSINOPHIL (%) 0 % (0-5); HEMOGLOBIN 8.9 G/DL (11.9-15.5); IMMATURE GRANULOCYTE (%) 0.6 % (0.0-0.7); LYMPHOCYTE COUNT 0.5 K/uL (1.0-2.8); MCH 28.6 PG (29.0-34.0); MCHC 31.8 G/DL (30.0-36.0); MONOCYTE (%) 0.8 % (3-12); MONOCYTE COUNT 0.1 K/uL (0-0.8); NEUTROPHIL (%) 92.6 % (45-76); NEUTROPHIL COUNT 7.1 K/uL (1.8-6.4); PLATELET COUNT 155 K/uL (156-360); RBC DIS.WIDTH-CV 14.4 % (11.8-14.6); RBC DIS.WIDTH-SD 47.5 % (39-53); RED BLOOD COUNT 3.11 M/uL (3.80-5.20); WHITE BLOOD COUNT 7.7 K/uL (4.1-10.2)
[2018-01-21 11:07] LABS: CHLORIDE 91 MEQ/L (99-109); CREATININE 1.9 MG/DL (0.6-1.3); GFR ESTIMATE (CALCULATED) 28 mL/min/; GLUCOSE 429 mg/dL (70-99); POTASSIUM 4.9 MEQ/L (3.7-5.4); SODIUM 135 MEQ/L (136-147); UREA NITROGEN (BUN) 50 mg/dL (9-23)
[2018-01-21 12:36] VITALS: BP 130/70
[2018-01-21 16:18] VITALS: BP 136/78
[2018-01-21 19:52] VITALS: BP 130/72
[2018-01-22 00:41] VITALS: BP 136/74
[2018-01-22 06:46] LABS: BASOPHIL (%) 0 % (0-1); EOSINOPHIL (%) 0 % (0-5); HEMATOCRIT 28.9 % (36.0-46.0); HEMOGLOBIN 9.1 G/DL (11.9-15.5); LYMPHOCYTE (%) 6.6 % (15-42); LYMPHOCYTE COUNT 0.4 K/uL (1.0-2.8); MCH 28.5 PG (29.0-34.0); MCHC 31.5 G/DL (30.0-36.0); MCV 90.6 FL (83-99); MONOCYTE (%) 2.1 % (3-12); MONOCYTE COUNT 0.1 K/uL (0-0.8); NEUTROPHIL (%) 90.3 % (45-76); NEUTROPHIL COUNT 5.6 K/uL (1.8-6.4); NRBC (%) 0.3 /100 WBC (0-0); PLATELET COUNT 159 K/uL (156-360); RBC DIS.WIDTH-CV 14.3 % (11.8-14.6); RBC DIS.WIDTH-SD 47.7 % (39-53); RED BLOOD COUNT 3.19 M/uL (3.80-5.20); WHITE BLOOD COUNT 6.2 K/uL (4.1-10.2)
[2018-01-22 07:14] LABS: CARBON DIOXIDE (BICARBONATE) > 40.0 MEQ/L (20-31); CHLORIDE 93 MEQ/L (99-109); CREATININE 1.8 MG/DL (0.6-1.3); GFR ESTIMATE (CALCULATED) 30 mL/min/; GLUCOSE 262 mg/dL (70-99); SODIUM 137 MEQ/L (136-147); UREA NITROGEN (BUN) 53 mg/dL (9-23)
[2018-01-22 07:44] VITALS: BP 108/78
[2018-01-22 15:27] VITALS: BP 120/78
[2018-01-23 00:21] VITALS: BP 118/75
[2018-01-23 06:37] LABS: BASOPHIL (%) 0.2 % (0-1); EOSINOPHIL (%) 0 % (0-5); HEMATOCRIT 30.5 % (36.0-46.0); HEMOGLOBIN 9.4 G/DL (11.9-15.5); IMMATURE GRANULOCYTE (%) 1.2 % (0.0-0.7); LYMPHOCYTE (%) 15.5 % (15-42); MCH 28.1 PG (29.0-34.0); MCHC 30.8 G/DL (30.0-36.0); MCV 91.3 FL (83-99); MONOCYTE (%) 9.1 % (3-12); MONOCYTE COUNT 0.6 K/uL (0-0.8); NEUTROPHIL COUNT 4.8 K/uL (1.8-6.4); NRBC (%) 0.3 /100 WBC (0-0); PLATELET COUNT 165 K/uL (156-360); RBC DIS.WIDTH-CV 14.3 % (11.8-14.6); RBC DIS.WIDTH-SD 47.6 % (39-53); RED BLOOD COUNT 3.34 M/uL (3.80-5.20); WHITE BLOOD COUNT 6.5 K/uL (4.1-10.2)
[2018-01-23 07:03] LABS: CHLORIDE 91 MEQ/L (99-109); CREATININE 1.8 MG/DL (0.6-1.3); GFR ESTIMATE (CALCULATED) 30 mL/min/; GLUCOSE 195 mg/dL (70-99); POTASSIUM 4.9 MEQ/L (3.7-5.4); SODIUM 137 MEQ/L (136-147); UREA NITROGEN (BUN) 53 mg/dL (9-23)
[2018-01-23 07:04] LABS: CARBON DIOXIDE (BICARBONATE) > 40.0 MEQ/L (20-31)
[2018-01-23 08:09] VITALS: BP 140/63
[2018-01-23 15:30] VITALS: BP 124/72
[2018-01-23 21:31] VITALS: BP 133/79
[2018-01-24 00:27] VITALS: BP 127/74
[2018-01-24 07:14] LABS: CHLORIDE 90 MEQ/L (99-109); CREATININE 1.8 MG/DL (0.6-1.3); GFR ESTIMATE (CALCULATED) 30 mL/min/; GLUCOSE 179 mg/dL (70-99); POTASSIUM 4.7 MEQ/L (3.7-5.4); SODIUM 138 MEQ/L (136-147); UREA NITROGEN (BUN) 53 mg/dL (9-23)
[2018-01-24 07:25] LABS: CARBON DIOXIDE (BICARBONATE) > 40.0 MEQ/L (20-31)
[2018-01-24 07:26] VITALS: BP 126/76
[2018-01-24] MEDS ORDERED: PREDNISONE10 MG PO (11:37)
[2018-01-24] MEDS ORDERED: SPIRONOLACTONE50 MG PO (11:37)
[2018-01-24] MEDS ORDERED: CEFTIN500 MG PO (11:37)
== END 2018-01-24 14:00 | disposition home or self-care (01) | DRG 189 ==
LOC: EME 17:27 → 2EAST 21:00 → EDOF 21:00 → 4WEST 21:00 → ENRESERV 21:31 → 2EASTP 22:14 → 4WEST 01-19 16:12 → ENRESERV 01-20 10:59 → 2EAST 01-20 13:27
PROVIDERS: Emergency Medicine; Family Medicine; Internal Medicine; Internal Medicine Critical Care Medicine; Internal Medicine Pulmonary Disease
PROC: 5A0935Z Assistance with Respiratory Ventilation, Less than 24 Consecutive Hours (ICD-10-PCS; principal; 2018-01-18)
DX: J96.22 Acute and chronic respiratory failure with hypercapnia (principal); J18.9 Pneumonia, unspecified organism; E87.2 Acidosis; I50.32 Chronic diastolic (congestive) heart failure; G93.41 Metabolic encephalopathy; J44.1 Chronic obstructive pulmonary disease with (acute) exacerbation; I27.20 Pulmonary hypertension, unspecified; I48.91 Unspecified atrial fibrillation; E78.5 Hyperlipidemia, unspecified; I13.0 Hypertensive heart and chronic kidney disease with heart failure and stage 1 through stage 4 chronic kidney disease, or unspecified chronic kidney disease; E66.01 Morbid (severe) obesity due to excess calories; E66.2 Morbid (severe) obesity with alveolar hypoventilation; I25.10 Atherosclerotic heart disease of native coronary artery without angina pectoris; N17.9 Acute kidney failure, unspecified; E11.21 Type 2 diabetes mellitus with diabetic nephropathy; K21.9 Gastro-esophageal reflux disease without esophagitis; N18.9 Chronic kidney disease, unspecified; E11.22 Type 2 diabetes mellitus with diabetic chronic kidney disease; D63.1 Anemia in chronic kidney disease; Z91.19 Patient's noncompliance with other medical treatment and regimen; Z79.899 Other long term (current) drug therapy; Z79.82 Long term (current) use of aspirin; Z68.41 Body mass index [BMI] 40.0-44.9, adult; Z79.01 Long term (current) use of anticoagulants; I63.9 Cerebral infarction, unspecified; Z99.81 Dependence on supplemental oxygen; J44.0 Chronic obstructive pulmonary disease with (acute) lower respiratory infection; J96.21 Acute and chronic respiratory failure with hypoxia; L29.9 Pruritus, unspecified; Z86.73 Personal history of transient ischemic attack (TIA), and cerebral infarction without residual deficits
CPT/HCPCS: 36600; 71045; 71046; 80048; 82803; 82948; 83605; 83880; 84484; 85025; 85610; 85730; 87040; 87449; 87641; 93005; 93306; 94002; 94640; 94640 76; 94660; 94760; 94799; 99281; 99285; J0456; J0696; J1815; J2920; J2930; J7030; J7512

== ENCOUNTER 2018-02-19 12:23 | Inpatient (IN) | payer OTHER ==
[2018-02-19] VITALS (8 sets, daily range): BP systolic 117–141; BP diastolic 60–106
[~2018-02-19] VITALS: Ht 160 cm; Wt 119.5 kg
[~2018-02-19 12:23] MED LIST changes: +CARTIA XT180 MG PO; +CEFTIN500 MG PO; +FLEXERIL5 MG PO; +FOLIC ACID0.8 MG PO; +SPIRONOLACTONE50 MG PO; +ZOFRAN4 MG PO
[2018-02-19 13:33] LABS: BASOPHIL (%) 0.2 % (0-1); EOSINOPHIL (%) 2.7 % (0-5); EOSINOPHIL COUNT 0.2 K/uL (0-0.3); HEMATOCRIT 18.5 % (36.0-46.0); IMMATURE GRANULOCYTE (%) 0.9 % (0.0-0.7); MCH 30.3 PG (29.0-34.0); MCHC 31.9 G/DL (30.0-36.0); MCV 94.9 FL (83-99); MONOCYTE (%) 9.8 % (3-12); MONOCYTE COUNT 0.6 K/uL (0-0.8); NEUTROPHIL (%) 69.4 % (45-76); NEUTROPHIL COUNT 4.1 K/uL (1.8-6.4); NRBC (%) 1.2 /100 WBC (0-0); PLATELET COUNT 174 K/uL (156-360); RBC DIS.WIDTH-CV 15.7 % (11.8-14.6); RBC DIS.WIDTH-SD 53.4 % (39-53); WHITE BLOOD COUNT 5.8 K/uL (4.1-10.2)
[2018-02-19 13:40] LABS: ALBUMIN 3.4 g/dL (3.2-4.8)
[2018-02-19 13:41] LABS: CHLORIDE 93 mEq/L (99-109); POTASSIUM 4.5 mEq/L (3.7-5.4); SODIUM 136 mEq/L (136-147)
[2018-02-19 13:43] LABS: GLUCOSE 108 mg/dL (70-99); HEMOGLOBIN 5.9 G/DL (11.9-15.5); RED BLOOD COUNT 1.95 M/uL (3.80-5.20); TOTAL PROTEIN 5.7 g/dL (6.4-8.3)
[2018-02-19 13:45] LABS: TOTAL BILIRUBIN 0.4 mg/dL (0.0-1.0)
[2018-02-19 13:46] LABS: ALKALINE PHOSPHATASE 79 IU/L (3-129)
[2018-02-19 13:47] LABS: CREATININE 2.2 mg/dL (0.6-1.3); GFR ESTIMATE (CALCULATED) 24 mL/min/
[2018-02-19 13:48] LABS: AST (GOT) 11 IU/L (2-34); UREA NITROGEN (BUN) 46 mg/dL (9-23)
[2018-02-19 13:49] LABS: ALT (GPT) 10 IU/L (3-49)
[2018-02-19 14:02] LABS: TROP-I INTERPRETATION NEGATIVE; TROPONIN-I < 0.01 ng/mL (0.0-0.30)
[2018-02-20] VITALS (8 sets, daily range): BP systolic 106–141; BP diastolic 52–68
[2018-02-20 06:23] LABS: HEMOGLOBIN 7.6 G/DL (11.9-15.5); MCH 28.5 PG (29.0-34.0); MCHC 31.7 G/DL (30.0-36.0); NRBC (%) 0.7 /100 WBC (0-0); RBC DIS.WIDTH-CV 17.2 % (11.8-14.6); RBC DIS.WIDTH-SD 55.8 % (39-53); WHITE BLOOD COUNT 8.3 K/uL (4.1-10.2)
[2018-02-20 06:24] LABS: ALBUMIN 3.5 G/DL (3.2-4.8); CHLORIDE 94 MEQ/L (99-109); GFR ESTIMATE (CALCULATED) 27 mL/min/; GLUCOSE 224 mg/dL (70-99); PHOSPHORUS 3.2 mg/dL (2.5-4.9); POTASSIUM 4.2 MEQ/L (3.7-5.4); SODIUM 139 MEQ/L (136-147); UREA NITROGEN (BUN) 48 mg/dL (9-23)
[2018-02-20 06:27] LABS: MCV 89.9 FL (83-99); PLATELET COUNT 233 K/uL (156-360); RED BLOOD COUNT 2.67 M/uL (3.80-5.20)
[2018-02-21] VITALS (32 sets, daily range): BP systolic 105–143; BP diastolic 47–81
[2018-02-21 06:48] LABS: CHLORIDE 93 MEQ/L (99-109); CREATININE 1.9 MG/DL (0.6-1.3); GFR ESTIMATE (CALCULATED) 28 mL/min/; GLUCOSE 271 mg/dL (70-99); POTASSIUM 4.5 MEQ/L (3.7-5.4); SODIUM 139 MEQ/L (136-147); UREA NITROGEN (BUN) 44 mg/dL (9-23)
[2018-02-21 06:52] LABS: CARBON DIOXIDE (BICARBONATE) > 40.0 MEQ/L (20-31)
[2018-02-21 07:43] LABS: COMMENTS - BLOOD GASES A+C+; DEVICE NC; O2 FLOW 3 L/MIN; SITE RR
[2018-02-21 07:45] LABS: pH 7.29 (7.35-7.45)
[2018-02-21 07:47] LABS: PCO2 96 mm Hg (35-45); PO2 53 mm Hg (80-100); TOTAL RESP RATE 14 resp/min
[2018-02-21 07:47] LABS: BASOPHIL (%) 0.3 % (0-1); EOSINOPHIL (%) 1.1 % (0-5); EOSINOPHIL COUNT 0.1 K/uL (0-0.3); HEMATOCRIT 21.9 % (36.0-46.0); IMMATURE GRANULOCYTE (%) 1.5 % (0.0-0.7); LYMPHOCYTE (%) 6.2 % (15-42); LYMPHOCYTE COUNT 0.6 K/uL (1.0-2.8); MCH 28.7 PG (29.0-34.0); MCHC 31.1 G/DL (30.0-36.0); MCV 92.4 FL (83-99); MONOCYTE (%) 7.9 % (3-12); MONOCYTE COUNT 0.7 K/uL (0-0.8); NEUTROPHIL COUNT 7.6 K/uL (1.8-6.4); NRBC (%) 0.5 /100 WBC (0-0); PLATELET COUNT 219 K/uL (156-360); RBC DIS.WIDTH-CV 16.9 % (11.8-14.6); RBC DIS.WIDTH-SD 56.1 % (39-53); RED BLOOD COUNT 2.37 M/uL (3.80-5.20); WHITE BLOOD COUNT 9.2 K/uL (4.1-10.2)
[2018-02-21 07:48] LABS: HEMOGLOBIN 6.8 G/DL (11.9-15.5)
[2018-02-21 07:48] LABS: BASE EXCESS 17.6 mEq/L (-3 to +3); BICARBONATE 46.2 mEq/L (22-26)
[2018-02-21 09:28] LABS: HEMATOCRIT 20.7 % (36.0-46.0)
[2018-02-21 09:34] LABS: HEMOGLOBIN 6.5 G/DL (11.9-15.5)
[2018-02-21 11:08] LABS: SITE RR
[2018-02-21 11:13] LABS: DEVICE VENT; FI02 30 %; MODE SPONT; TOTAL RESP RATE 10 resp/min
[2018-02-21 11:14] LABS: COMMENTS - BLOOD GASES C+; CONTINUOUS POS AIRWAY PRESSURE 5 cm H2O; PRES. SUPPORT 10 CM/H2O
[2018-02-21 11:15] LABS: BASE EXCESS 15.4 mEq/L (-3 to +3); BICARBONATE 45.3 mEq/L (22-26); CARBOXY HGB 4 % (0-5); METHEMOGLOBIN 0.3 % (0-1.5); O2 SATURATION (CALCULATED) 95.4 % (95-99); PCO2 90 mm Hg (35-45); PO2 64 mm Hg (80-100); pH 7.31 (7.35-7.45)
[2018-02-21 14:54] LABS: COMMENTS - BLOOD GASES C+; DEVICE VENT; FI02 60 %; MECHANICAL RATE 16 resp/min; MODE AC; PEEP 5 CM/H20; SITE RR; TIDAL VOLUME 400 ML; TOTAL RESP RATE 16 resp/min; pH 7.42 (7.35-7.45)
[2018-02-21 14:55] LABS: BASE EXCESS 20.8 mEq/L (-3 to +3); BICARBONATE 48 mEq/L (22-26); CARBOXY HGB 2.8 % (0-5); METHEMOGLOBIN 0.8 % (0-1.5); O2 SATURATION (CALCULATED) 97 % (95-99); PCO2 74 mm Hg (35-45); PO2 72 mm Hg (80-100)
[2018-02-21 21:51] LABS: HEMOGLOBIN 7.7 G/DL (11.9-15.5); MCH 28.8 PG (29.0-34.0); MCHC 32.1 G/DL (30.0-36.0); MCV 89.9 FL (83-99); NRBC (%) 0.3 /100 WBC (0-0); PLATELET COUNT 198 K/uL (156-360); RBC DIS.WIDTH-CV 16.2 % (11.8-14.6); RBC DIS.WIDTH-SD 51.7 % (39-53); RED BLOOD COUNT 2.67 M/uL (3.80-5.20); WHITE BLOOD COUNT 7.6 K/uL (4.1-10.2)
[2018-02-22] VITALS (24 sets, daily range): BP systolic 100–148; BP diastolic 53–94
[2018-02-22 10:50] LABS: BASOPHIL (%) 0.1 % (0-1); EOSINOPHIL (%) 0 % (0-5); HEMATOCRIT 25.1 % (36.0-46.0); HEMOGLOBIN 8.2 G/DL (11.9-15.5); IMMATURE GRANULOCYTE (%) 1.3 % (0.0-0.7); LYMPHOCYTE (%) 7.8 % (15-42); LYMPHOCYTE COUNT 0.6 K/uL (1.0-2.8); MCH 29.6 PG (29.0-34.0); MCHC 32.7 G/DL (30.0-36.0); MCV 90.6 FL (83-99); MONOCYTE (%) 2.2 % (3-12); MONOCYTE COUNT 0.2 K/uL (0-0.8); NEUTROPHIL (%) 88.6 % (45-76); NRBC (%) 0.5 /100 WBC (0-0); PLATELET COUNT 223 K/uL (156-360); RBC DIS.WIDTH-CV 16.3 % (11.8-14.6); RBC DIS.WIDTH-SD 52.7 % (39-53); RED BLOOD COUNT 2.77 M/uL (3.80-5.20); WHITE BLOOD COUNT 7.8 K/uL (4.1-10.2)
[2018-02-22 11:25] LABS: ALKALINE PHOSPHATASE 62 IU/L (3-129); ALT (GPT) 5 IU/L (3-49); AST (GOT) < 7 IU/L (2-34); CHLORIDE 92 MEQ/L (99-109); CREATININE 1.6 MG/DL (0.6-1.3); GFR ESTIMATE (CALCULATED) 35 mL/min/; GLUCOSE 292 mg/dL (70-99); POTASSIUM 4.8 MEQ/L (3.7-5.4); SODIUM 140 MEQ/L (136-147); TOTAL BILIRUBIN 0.4 MG/DL (0.0-1.0); TOTAL PROTEIN 5.7 G/DL (6.4-8.3); UREA NITROGEN (BUN) 45 mg/dL (9-23)
[2018-02-22 11:26] LABS: CARBON DIOXIDE (BICARBONATE) > 40.0 MEQ/L (20-31)
[2018-02-23] VITALS (23 sets, daily range): BP systolic 85–161; BP diastolic 62–99
[2018-02-23 05:51] LABS: HEMATOCRIT 23.5 % (36.0-46.0); HEMOGLOBIN 7.5 G/DL (11.9-15.5); MCH 29.1 PG (29.0-34.0); MCHC 31.9 G/DL (30.0-36.0); MCV 91.1 FL (83-99); NRBC (%) 0.4 /100 WBC (0-0); PLATELET COUNT 258 K/uL (156-360); RBC DIS.WIDTH-CV 16.1 % (11.8-14.6); RBC DIS.WIDTH-SD 52.7 % (39-53); RED BLOOD COUNT 2.58 M/uL (3.80-5.20); WHITE BLOOD COUNT 9.9 K/uL (4.1-10.2)
[2018-02-23 06:33] LABS: ALBUMIN 2.9 G/DL (3.2-4.8); ALKALINE PHOSPHATASE 55 IU/L (3-129); ALT (GPT) 4 IU/L (3-49); AST (GOT) < 7 IU/L (2-34); CHLORIDE 88 MEQ/L (99-109); CREATININE 1.8 MG/DL (0.6-1.3); GFR ESTIMATE (CALCULATED) 30 mL/min/; GLUCOSE 360 mg/dL (70-99); POTASSIUM 5.4 MEQ/L (3.7-5.4); SODIUM 137 MEQ/L (136-147); TOTAL PROTEIN 5.1 G/DL (6.4-8.3); UREA NITROGEN (BUN) 58 mg/dL (9-23)
[2018-02-23 06:42] LABS: CARBON DIOXIDE (BICARBONATE) > 40.0 MEQ/L (20-31); TOTAL BILIRUBIN 0.3 MG/DL (0.0-1.0)
[2018-02-23 11:10] LABS: COMMENTS - BLOOD GASES +C; DEVICE PB840; FI02 30 %; MODE TUBE COMP.; PCO2 65 mm Hg (35-45); PEEP 5 CM/H20; PO2 55 mm Hg (80-100); SITE LR +A; TOTAL RESP RATE 14 resp/min; pH 7.45 (7.35-7.45)
[2018-02-23 11:11] LABS: BICARBONATE 45.2 mEq/L (22-26); CARBOXY HGB 2.5 % (0-5); METHEMOGLOBIN 0.5 % (0-1.5); O2 SATURATION (CALCULATED) 92.1 % (95-99)
[2018-02-24] VITALS (24 sets, daily range): BP systolic 108–151; BP diastolic 66–96
[2018-02-25] VITALS (18 sets, daily range): BP systolic 101–145; BP diastolic 59–98
[2018-02-25 12:23] LABS: HEMOGLOBIN A1c (GLYCOHEMOGLOB) 6.7 % (Below 5.7)
[2018-02-26 03:16] VITALS: BP 132/68
[2018-02-26 06:00] LABS: BASOPHIL (%) 0.1 % (0-1); EOSINOPHIL (%) 0 % (0-5); HEMATOCRIT 23.6 % (36.0-46.0); HEMOGLOBIN 7.5 G/DL (11.9-15.5); IMMATURE GRANULOCYTE (%) 4.4 % (0.0-0.7); LYMPHOCYTE (%) 8.5 % (15-42); MCH 28.4 PG (29.0-34.0); MCHC 31.8 G/DL (30.0-36.0); MCV 89.4 FL (83-99); MONOCYTE (%) 6.4 % (3-12); MONOCYTE COUNT 0.7 K/uL (0-0.8); NEUTROPHIL (%) 80.6 % (45-76); NEUTROPHIL COUNT 9.2 K/uL (1.8-6.4); NRBC (%) 0.5 /100 WBC (0-0); PLATELET COUNT 297 K/uL (156-360); RBC DIS.WIDTH-CV 14.6 % (11.8-14.6); RBC DIS.WIDTH-SD 47.4 % (39-53); RED BLOOD COUNT 2.64 M/uL (3.80-5.20); WHITE BLOOD COUNT 11.4 K/uL (4.1-10.2)
[2018-02-26 06:42] LABS: CHLORIDE 89 MEQ/L (99-109); CREATININE 1.7 MG/DL (0.6-1.3); GFR ESTIMATE (CALCULATED) 32 mL/min/; GLUCOSE 274 mg/dL (70-99); POTASSIUM 5.5 MEQ/L (3.7-5.4); SODIUM 137 MEQ/L (136-147); UREA NITROGEN (BUN) 52 mg/dL (9-23)
[2018-02-26 06:44] LABS: CARBON DIOXIDE (BICARBONATE) > 40.0 MEQ/L (20-31)
[2018-02-26 07:58] VITALS: BP 118/68
[2018-02-26 12:54] LABS: PTT 23.2 SEC (25-37)
[2018-02-26 16:53] VITALS: BP 110/60
[2018-02-26 19:05] VITALS: BP 146/80
[2018-02-26 23:40] VITALS: BP 133/67
[2018-02-27 06:07] LABS: BASOPHIL (%) 0.1 % (0-1); EOSINOPHIL (%) 0.2 % (0-5); HEMATOCRIT 24.2 % (36.0-46.0); HEMOGLOBIN 7.6 G/DL (11.9-15.5); IMMATURE GRANULOCYTE (%) 4.9 % (0.0-0.7); LYMPHOCYTE (%) 14.4 % (15-42); LYMPHOCYTE COUNT 1.9 K/uL (1.0-2.8); MCH 28.7 PG (29.0-34.0); MCHC 31.4 G/DL (30.0-36.0); MCV 91.3 FL (83-99); MONOCYTE (%) 7.9 % (3-12); NEUTROPHIL (%) 72.5 % (45-76); NEUTROPHIL COUNT 9.4 K/uL (1.8-6.4); NRBC (%) 0.8 /100 WBC (0-0); PLATELET COUNT 264 K/uL (156-360); RBC DIS.WIDTH-CV 15.1 % (11.8-14.6); RED BLOOD COUNT 2.65 M/uL (3.80-5.20)
[2018-02-27 06:41] LABS: CHLORIDE 91 MEQ/L (99-109); CREATININE 1.8 MG/DL (0.6-1.3); GFR ESTIMATE (CALCULATED) 30 mL/min/; GLUCOSE 186 mg/dL (70-99); POTASSIUM 5.1 MEQ/L (3.7-5.4); SODIUM 138 MEQ/L (136-147); UREA NITROGEN (BUN) 50 mg/dL (9-23)
[2018-02-27 06:57] LABS: CARBON DIOXIDE (BICARBONATE) > 40.0 MEQ/L (20-31)
[2018-02-27 07:43] VITALS: BP 113/67
[2018-02-27 16:13] VITALS: BP 154/67
[2018-02-27 23:46] VITALS: BP 115/67
[2018-02-28 04:56] VITALS: BP 139/75
[2018-02-28 05:14] VITALS: BP 120/82
[2018-02-28 06:15] VITALS: BP 112/63
[2018-02-28 06:20] VITALS: BP 112/63
[2018-02-28 07:15] VITALS: BP 107/61
[2018-02-28 08:15] VITALS: BP 115/55
[2018-02-28 09:20] LABS: BASOPHIL (%) 0.1 % (0-1); EOSINOPHIL (%) 0.8 % (0-5); EOSINOPHIL COUNT 0.1 K/uL (0-0.3); HEMOGLOBIN 8.3 G/DL (11.9-15.5); IMMATURE GRANULOCYTE (%) 3.3 % (0.0-0.7); LYMPHOCYTE (%) 15.4 % (15-42); LYMPHOCYTE COUNT 2.1 K/uL (1.0-2.8); MCH 28.5 PG (29.0-34.0); MCHC 30.7 G/DL (30.0-36.0); MCV 92.8 FL (83-99); MONOCYTE (%) 6.5 % (3-12); MONOCYTE COUNT 0.9 K/uL (0-0.8); NEUTROPHIL (%) 73.9 % (45-76); NRBC (%) 0.7 /100 WBC (0-0); PLATELET COUNT 246 K/uL (156-360); RBC DIS.WIDTH-CV 15.6 % (11.8-14.6); RED BLOOD COUNT 2.91 M/uL (3.80-5.20); WHITE BLOOD COUNT 13.5 K/uL (4.1-10.2)
[2018-02-28] MEDS ORDERED: DUONEB 2.5-0.5 M3 ML AEROSOL ×2 (11:53→11:56)
[2018-02-28] MEDS ORDERED: PREDNISONE10 MG PO (11:56)
[2018-02-28] MEDS ORDERED: PANTOPRAZOLE SO40 MG PO (11:56)
[2018-02-28 14:06] LABS: CHLORIDE 92 MEQ/L (99-109); CREATININE 1.5 MG/DL (0.6-1.3); GFR ESTIMATE (CALCULATED) 37 mL/min/; GLUCOSE 192 mg/dL (70-99); POTASSIUM 5.3 MEQ/L (3.7-5.4); SODIUM 141 MEQ/L (136-147); UREA NITROGEN (BUN) 45 mg/dL (9-23)
[2018-02-28 14:07] LABS: CARBON DIOXIDE (BICARBONATE) > 40.0 MEQ/L (20-31)
== END 2018-02-28 13:48 | disposition home health service (06) | DRG 208 ==
LOC: EME 12:23 → EDOF 15:22 → 2EAST 15:22 → 4WEST 15:22 → ENRESERV 15:33 → 2EAST 17:48 → ENRESERV 02-21 08:05 → 4WEST 02-21 08:41 → CANRESERV 02-25 13:01 → ENRESERV 02-25 13:01 → 2EAST 02-25 17:04
PROVIDERS: Emergency Medicine; Family Medicine; Hospitalist; Internal Medicine; Internal Medicine Critical Care Medicine; Internal Medicine Hematology & Oncology; Surgery
DX: J18.9 Pneumonia, unspecified organism (principal); J96.21 Acute and chronic respiratory failure with hypoxia; J96.22 Acute and chronic respiratory failure with hypercapnia; I50.33 Acute on chronic diastolic (congestive) heart failure; E87.2 Acidosis; J44.0 Chronic obstructive pulmonary disease with (acute) lower respiratory infection; J44.1 Chronic obstructive pulmonary disease with (acute) exacerbation; L03.115 Cellulitis of right lower limb; L03.116 Cellulitis of left lower limb; L02.415 Cutaneous abscess of right lower limb; L02.416 Cutaneous abscess of left lower limb; I13.0 Hypertensive heart and chronic kidney disease with heart failure and stage 1 through stage 4 chronic kidney disease, or unspecified chronic kidney disease; K92.1 Melena; Z68.42 Body mass index [BMI] 45.0-49.9, adult; F33.9 Major depressive disorder, recurrent, unspecified; D63.1 Anemia in chronic kidney disease; E11.21 Type 2 diabetes mellitus with diabetic nephropathy; E11.22 Type 2 diabetes mellitus with diabetic chronic kidney disease; G47.33 Obstructive sleep apnea (adult) (pediatric); E78.5 Hyperlipidemia, unspecified; D50.0 Iron deficiency anemia secondary to blood loss (chronic); I25.10 Atherosclerotic heart disease of native coronary artery without angina pectoris; I27.20 Pulmonary hypertension, unspecified; I48.2 Chronic atrial fibrillation; N18.3 Chronic kidney disease, stage 3 (moderate); K21.9 Gastro-esophageal reflux disease without esophagitis; R26.81 Unsteadiness on feet; R53.1 Weakness; E66.01 Morbid (severe) obesity due to excess calories; F41.9 Anxiety disorder, unspecified; Z79.4 Long term (current) use of insulin; Z99.81 Dependence on supplemental oxygen; Z86.73 Personal history of transient ischemic attack (TIA), and cerebral infarction without residual deficits; Z87.01 Personal history of pneumonia (recurrent); Z79.01 Long term (current) use of anticoagulants; Z60.2 Problems related to living alone; Z81.1 Family history of alcohol abuse and dependence; Z83.3 Family history of diabetes mellitus
CPT/HCPCS: 31500; 36600; 71045; 71046; 77012; 80048; 80053; 80069; 82803; 82948; 83036; 83605; 83880; 84484; 85014; 85018; 85025; 85027; 85610; 85730; 86850; 86900; 86901; 86905; 86920; 87040; 87070; 87205; 87641; 93005; 94002; 94003; 94640; 94660; 94760; 94799; 99281; 99285; C9113; J0295; J0696; J1200; J1644; J1815; J1940; J2704; J2920; J2930; J3010; J7050; J7512; P9016

== ENCOUNTER 2018-03-04 19:55 | Emergency (ER) | payer OTHER ==
[~2018-03-04] VITALS: Ht 160 cm; Wt 113.3 kg
[~2018-03-04 19:55] MED LIST changes: +PANTOPRAZOLE SO40 MG PO
[2018-03-04 20:34] LABS: HEMATOCRIT 33.1 % (36.0-46.0); MCH 29.3 PG (29.0-34.0); MCHC 31.1 G/DL (30.0-36.0); NRBC (%) 0.3 /100 WBC (0-0); RBC DIS.WIDTH-CV 16.9 % (11.8-14.6); RBC DIS.WIDTH-SD 55.8 % (39-53); WHITE BLOOD COUNT 6.2 K/uL (4.1-10.2)
[2018-03-04 20:38] LABS: HEMOGLOBIN 10.3 G/DL (11.9-15.5); RED BLOOD COUNT 3.52 M/uL (3.80-5.20)
[2018-03-04 20:40] LABS: ALBUMIN 3.4 g/dL (3.2-4.8); CHLORIDE 94 mEq/L (99-109); POTASSIUM 4.7 mEq/L (3.7-5.4); SODIUM 140 mEq/L (136-147)
[2018-03-04 20:41] LABS: MAGNESIUM 1.9 mg/dL (1.3-2.7)
[2018-03-04 20:42] LABS: GLUCOSE 276 mg/dL (70-99); TOTAL PROTEIN 5.5 g/dL (6.4-8.3)
[2018-03-04 20:44] LABS: TOTAL BILIRUBIN 0.4 mg/dL (0.0-1.0)
[2018-03-04 20:46] LABS: ALKALINE PHOSPHATASE 55 IU/L (3-129); CREATININE 1.5 mg/dL (0.6-1.3); GFR ESTIMATE (CALCULATED) 37 mL/min/
[2018-03-04 20:47] LABS: UREA NITROGEN (BUN) 35 mg/dL (9-23)
[2018-03-04 20:48] LABS: AST (GOT) 10 IU/L (2-34)
[2018-03-04 20:49] LABS: ALT (GPT) 12 IU/L (3-49)
[2018-03-04 20:50] LABS: TROP-I INTERPRETATION NEGATIVE; TROPONIN-I < 0.01 ng/mL (0.0-0.30)
[2018-03-04 21:28] LABS: BASOPHIL (%) 0.2 % (0-1); EOSINOPHIL (%) 1.3 % (0-5); EOSINOPHIL COUNT 0.1 K/uL (0-0.3); LYMPHOCYTE COUNT 0.9 K/uL (1.0-2.8); MONOCYTE (%) 6.3 % (3-12); MONOCYTE COUNT 0.4 K/uL (0-0.8); NEUTROPHIL (%) 77.2 % (45-76); NEUTROPHIL COUNT 4.8 K/uL (1.8-6.4); PLAT.SUFFICIENCY DECREASED; PLATELET CLUMPS PRESENT - PLATELET COUNT APPEARS DECREASED
[2018-03-04 21:42] LABS: PLATELET COUNT 146 K/uL (156-360)
[2018-03-04 22:15] VITALS: BP 121/68
== END 2018-03-04 22:18 | disposition home or self-care (01) ==
LOC: EME → EDBD 19:55 → EME 19:55
PROVIDERS: Emergency Medicine
DX: R60.0 Localized edema (principal); I11.0 Hypertensive heart disease with heart failure; I50.9 Heart failure, unspecified; K21.9 Gastro-esophageal reflux disease without esophagitis; E11.9 Type 2 diabetes mellitus without complications; E78.5 Hyperlipidemia, unspecified; J45.909 Unspecified asthma, uncomplicated; F41.9 Anxiety disorder, unspecified; F32.9 Major depressive disorder, single episode, unspecified; Z90.49 Acquired absence of other specified parts of digestive tract; Z79.4 Long term (current) use of insulin; Z88.8 Allergy status to other drugs, medicaments and biological substances
CPT/HCPCS: 71045; 80053; 83735; 83880; 84484; 85025; 93005; 99281; 99285; J1940

== ENCOUNTER 2018-03-07 13:54 | Inpatient (IN) | payer OTHER ==
[2018-03-07 14:48] LABS: MCH 30.1 PG (29.0-34.0); MCHC 31.3 G/DL (30.0-36.0); MCV 96.4 FL (83-99); NRBC (%) 0.2 /100 WBC (0-0); RBC DIS.WIDTH-SD 60.2 % (39-53); RED BLOOD COUNT 1.66 M/uL (3.80-5.20); WHITE BLOOD COUNT 10.2 K/uL (4.1-10.2)
[2018-03-07 14:49] LABS: PLATELET COUNT 190 K/uL (156-360)
[2018-03-07 14:50] LABS: INTER. NORMALIZED RATIO 1.1
[2018-03-07 14:52] LABS: CHLORIDE 94 mEq/L (99-109); POTASSIUM 4.9 mEq/L (3.7-5.4); PTT 26.9 SEC (25-37); SODIUM 140 mEq/L (136-147)
[2018-03-07 14:54] LABS: GLUCOSE 338 mg/dL (70-99)
[2018-03-07 14:58] LABS: CREATININE 1.8 mg/dL (0.6-1.3); GFR ESTIMATE (CALCULATED) 30 mL/min/
[2018-03-07 14:59] LABS: UREA NITROGEN (BUN) 28 mg/dL (9-23)
[2018-03-07 15:04] LABS: TROP-I INTERPRETATION NEGATIVE; TROPONIN-I < 0.01 ng/mL (0.0-0.30)
[2018-03-07 17:54] VITALS: BP 118/64
[2018-03-07 18:09] VITALS: BP 112/76
[2018-03-07 19:28] VITALS: BP 122/58
[2018-03-07 20:41] VITALS: BP 129/63
[2018-03-07 22:56] LABS: HEMATOCRIT 19.9 % (36.0-46.0); HEMOGLOBIN 6.4 G/DL (11.9-15.5); MCV 93.9 FL (83-99)
[2018-03-08] VITALS (16 sets, daily range): BP systolic 107–138; BP diastolic 55–84
[2018-03-08 06:00] LABS: HEMATOCRIT 21.8 % (36.0-46.0)
[2018-03-08 06:07] LABS: HEMOGLOBIN 6.7 G/DL (11.9-15.5)
[2018-03-08 06:16] LABS: ALBUMIN 3.2 G/DL (3.2-4.8); ALKALINE PHOSPHATASE 44 IU/L (3-129); ALT (GPT) 8 IU/L (3-49); AST (GOT) 9 IU/L (2-34); CHLORIDE 95 MEQ/L (99-109); CREATININE 1.4 MG/DL (0.6-1.3); GFR ESTIMATE (CALCULATED) 40 mL/min/; POTASSIUM 4.9 MEQ/L (3.7-5.4); SODIUM 139 MEQ/L (136-147); TOTAL BILIRUBIN 0.4 MG/DL (0.0-1.0); TOTAL PROTEIN 5.1 G/DL (6.4-8.3); UREA NITROGEN (BUN) 24 mg/dL (9-23)
[2018-03-08 06:28] LABS: GLUCOSE 162 mg/dL (70-99)
[2018-03-08] MEDS ORDERED: K-DUR20 MEQ PO (10:25)
[2018-03-08] MEDS ORDERED: COREG25 M1 PO (10:26)
[2018-03-08] MEDS ORDERED: FLEXERIL5 MG PO (10:26)
[2018-03-08] MEDS ORDERED: LASIX20 MG PO (10:27)
[2018-03-08 11:57] LABS: HEMATOCRIT 24.2 % (36.0-46.0); HEMOGLOBIN 7.7 G/DL (11.9-15.5)
[2018-03-08 16:23] LABS: HEMATOCRIT 28.3 % (36.0-46.0); HEMOGLOBIN 9.3 G/DL (11.9-15.5); MCV 90.7 FL (83-99)
[2018-03-09 04:07] VITALS: BP 127/83
[2018-03-09 05:37] LABS: HEMATOCRIT 26.1 % (36.0-46.0); HEMOGLOBIN 8.1 G/DL (11.9-15.5); LYMPHOCYTE (%) 9.7 % (15-42); MCH 28.7 PG (29.0-34.0); MCV 92.6 FL (83-99); MONOCYTE (%) 5.8 % (3-12); PLATELET COUNT 200 K/uL (156-360); RBC DIS.WIDTH-CV 17.8 % (11.8-14.6); RBC DIS.WIDTH-SD 57.9 % (39-53); WHITE BLOOD COUNT 11.1 K/uL (4.1-10.2)
[2018-03-09 05:38] LABS: BASOPHIL (%) 0.2 % (0-1); EOSINOPHIL (%) 0.4 % (0-5); IMMATURE GRANULOCYTE (%) 0.5 % (0.0-0.7); LYMPHOCYTE COUNT 1.1 K/uL (1.0-2.8); MONOCYTE COUNT 0.6 K/uL (0-0.8); NEUTROPHIL (%) 83.4 % (45-76); NEUTROPHIL COUNT 9.3 K/uL (1.8-6.4)
[2018-03-09 05:52] LABS: RED BLOOD COUNT 2.82 M/uL (3.80-5.20)
[2018-03-09 06:06] LABS: CHLORIDE 93 MEQ/L (99-109); CREATININE 1.4 MG/DL (0.6-1.3); GFR ESTIMATE (CALCULATED) 40 mL/min/; POTASSIUM 4.2 MEQ/L (3.7-5.4); SODIUM 139 MEQ/L (136-147); UREA NITROGEN (BUN) 24 mg/dL (9-23)
[2018-03-09 06:07] LABS: GLUCOSE 263 mg/dL (70-99)
[2018-03-09 06:23] LABS: CARBON DIOXIDE (BICARBONATE) > 40.0 MEQ/L (20-31)
[2018-03-09 07:57] VITALS: BP 121/61
[2018-03-09 11:13] VITALS: BP 118/60
[2018-03-09 15:51] VITALS: BP 124/61
[2018-03-09 20:02] VITALS: BP 122/71
[2018-03-10] VITALS (8 sets, daily range): BP systolic 115–130; BP diastolic 59–68
[2018-03-10 05:07] LABS: BASOPHIL (%) 0.2 % (0-1); EOSINOPHIL (%) 0.6 % (0-5); EOSINOPHIL COUNT 0.1 K/uL (0-0.3); HEMATOCRIT 26.2 % (36.0-46.0); HEMOGLOBIN 8.2 G/DL (11.9-15.5); IMMATURE GRANULOCYTE (%) 0.5 % (0.0-0.7); LYMPHOCYTE COUNT 1.1 K/uL (1.0-2.8); MCH 29.3 PG (29.0-34.0); MCHC 31.3 G/DL (30.0-36.0); MCV 93.6 FL (83-99); MONOCYTE (%) 9.3 % (3-12); NEUTROPHIL (%) 79.4 % (45-76); NEUTROPHIL COUNT 8.7 K/uL (1.8-6.4); PLATELET COUNT 195 K/uL (156-360); RBC DIS.WIDTH-CV 17.4 % (11.8-14.6); RBC DIS.WIDTH-SD 57.9 % (39-53); WHITE BLOOD COUNT 10.9 K/uL (4.1-10.2)
[2018-03-10 05:46] LABS: CHLORIDE 93 MEQ/L (99-109); CREATININE 1.3 MG/DL (0.6-1.3); GFR ESTIMATE (CALCULATED) 44 mL/min/; GLUCOSE 216 mg/dL (70-99); POTASSIUM 4.3 MEQ/L (3.7-5.4); SODIUM 142 MEQ/L (136-147); UREA NITROGEN (BUN) 19 mg/dL (9-23)
[2018-03-10 06:10] LABS: CARBON DIOXIDE (BICARBONATE) > 40.0 MEQ/L (20-31)
[2018-03-11 04:21] VITALS: BP 122/58
[2018-03-11 06:25] LABS: BASOPHIL (%) 0.2 % (0-1); EOSINOPHIL (%) 0.5 % (0-5); HEMATOCRIT 25.1 % (36.0-46.0); HEMOGLOBIN 7.7 G/DL (11.9-15.5); IMMATURE GRANULOCYTE (%) 0.7 % (0.0-0.7); MCH 29.1 PG (29.0-34.0); MCHC 30.7 G/DL (30.0-36.0); MCV 94.7 FL (83-99); MONOCYTE (%) 8.1 % (3-12); MONOCYTE COUNT 0.7 K/uL (0-0.8); NEUTROPHIL (%) 78.5 % (45-76); NEUTROPHIL COUNT 6.6 K/uL (1.8-6.4); PLATELET COUNT 180 K/uL (156-360); RBC DIS.WIDTH-CV 16.9 % (11.8-14.6); RED BLOOD COUNT 2.65 M/uL (3.80-5.20); WHITE BLOOD COUNT 8.4 K/uL (4.1-10.2)
[2018-03-11 06:51] LABS: CHLORIDE 93 MEQ/L (99-109); CREATININE 1.3 MG/DL (0.6-1.3); GFR ESTIMATE (CALCULATED) 44 mL/min/; GLUCOSE 192 mg/dL (70-99); POTASSIUM 4.4 MEQ/L (3.7-5.4); SODIUM 143 MEQ/L (136-147); UREA NITROGEN (BUN) 19 mg/dL (9-23)
[2018-03-11 06:54] LABS: CARBON DIOXIDE (BICARBONATE) > 40.0 MEQ/L (20-31)
[2018-03-11 07:15] VITALS: BP 110/56
[2018-03-11 12:23] VITALS: BP 118/54
[2018-03-11 16:16] VITALS: BP 121/59
[2018-03-11 20:50] VITALS: BP 138/62
[2018-03-12] VITALS (7 sets, daily range): BP systolic 125–152; BP diastolic 65–78
[2018-03-12 05:11] LABS: BASOPHIL (%) 0.3 % (0-1); EOSINOPHIL (%) 0.8 % (0-5); EOSINOPHIL COUNT 0.1 K/uL (0-0.3); HEMATOCRIT 27.4 % (36.0-46.0); HEMOGLOBIN 8.6 G/DL (11.9-15.5); IMMATURE GRANULOCYTE (%) 0.3 % (0.0-0.7); LYMPHOCYTE (%) 17.4 % (15-42); LYMPHOCYTE COUNT 1.1 K/uL (1.0-2.8); MCH 29.6 PG (29.0-34.0); MCHC 31.4 G/DL (30.0-36.0); MCV 94.2 FL (83-99); MONOCYTE (%) 7.7 % (3-12); MONOCYTE COUNT 0.5 K/uL (0-0.8); NEUTROPHIL (%) 73.5 % (45-76); NEUTROPHIL COUNT 4.7 K/uL (1.8-6.4); PLATELET COUNT 189 K/uL (156-360); RBC DIS.WIDTH-CV 16.6 % (11.8-14.6); RBC DIS.WIDTH-SD 56.9 % (39-53); RED BLOOD COUNT 2.91 M/uL (3.80-5.20); WHITE BLOOD COUNT 6.3 K/uL (4.1-10.2)
[2018-03-12 06:17] LABS: CHLORIDE 92 MEQ/L (99-109); CREATININE 1.1 MG/DL (0.6-1.3); GFR ESTIMATE (CALCULATED) 53 mL/min/; GLUCOSE 164 mg/dL (70-99); POTASSIUM 4.7 MEQ/L (3.7-5.4); SODIUM 143 MEQ/L (136-147); UREA NITROGEN (BUN) 16 mg/dL (9-23)
[2018-03-12 06:23] LABS: CARBON DIOXIDE (BICARBONATE) > 40.0 MEQ/L (20-31)
[2018-03-13 04:25] VITALS: BP 121/59
[2018-03-13 06:22] LABS: BASOPHIL (%) 0.2 % (0-1); EOSINOPHIL (%) 0.7 % (0-5); HEMATOCRIT 25.8 % (36.0-46.0); HEMOGLOBIN 7.9 G/DL (11.9-15.5); IMMATURE GRANULOCYTE (%) 0.3 % (0.0-0.7); LYMPHOCYTE (%) 15.5 % (15-42); LYMPHOCYTE COUNT 0.9 K/uL (1.0-2.8); MCHC 30.6 G/DL (30.0-36.0); MCV 94.9 FL (83-99); MONOCYTE (%) 6.3 % (3-12); MONOCYTE COUNT 0.4 K/uL (0-0.8); NEUTROPHIL COUNT 4.5 K/uL (1.8-6.4); PLATELET COUNT 179 K/uL (156-360); RBC DIS.WIDTH-CV 16.5 % (11.8-14.6); RBC DIS.WIDTH-SD 56.8 % (39-53); RED BLOOD COUNT 2.72 M/uL (3.80-5.20); WHITE BLOOD COUNT 5.9 K/uL (4.1-10.2)
[2018-03-13 07:05] LABS: CARBON DIOXIDE (BICARBONATE) > 40.0 MEQ/L (20-31)
[2018-03-13 08:00] VITALS: BP 141/76
[2018-03-13 09:35] LABS: CHLORIDE 91 MEQ/L (99-109); CREATININE 1.3 MG/DL (0.6-1.3); GFR ESTIMATE (CALCULATED) 44 mL/min/; GLUCOSE 189 mg/dL (70-99); POTASSIUM 5.5 MEQ/L (3.7-5.4); SODIUM 142 MEQ/L (136-147); UREA NITROGEN (BUN) 20 mg/dL (9-23)
[2018-03-13 12:01] VITALS: BP 130/80
[2018-03-13 16:18] VITALS: BP 140/74
[2018-03-13 23:14] VITALS: BP 138/87
[2018-03-14 06:31] LABS: BASOPHIL (%) 0.5 % (0-1); EOSINOPHIL (%) 1.2 % (0-5); EOSINOPHIL COUNT 0.1 K/uL (0-0.3); HEMATOCRIT 26.4 % (36.0-46.0); HEMOGLOBIN 8.3 G/DL (11.9-15.5); IMMATURE GRANULOCYTE (%) 0.4 % (0.0-0.7); LYMPHOCYTE (%) 20.9 % (15-42); LYMPHOCYTE COUNT 1.2 K/uL (1.0-2.8); MCH 29.6 PG (29.0-34.0); MCHC 31.4 G/DL (30.0-36.0); MCV 94.3 FL (83-99); MONOCYTE (%) 6.8 % (3-12); MONOCYTE COUNT 0.4 K/uL (0-0.8); NEUTROPHIL (%) 70.2 % (45-76); NEUTROPHIL COUNT 3.9 K/uL (1.8-6.4); PLATELET COUNT 178 K/uL (156-360); RBC DIS.WIDTH-CV 16.1 % (11.8-14.6); RBC DIS.WIDTH-SD 56.3 % (39-53); WHITE BLOOD COUNT 5.6 K/uL (4.1-10.2)
[2018-03-14 07:05] LABS: CARBON DIOXIDE (BICARBONATE) > 40.0 MEQ/L (20-31); CHLORIDE 89 MEQ/L (99-109); CREATININE 1.3 MG/DL (0.6-1.3); GFR ESTIMATE (CALCULATED) 44 mL/min/; GLUCOSE 203 mg/dL (70-99); POTASSIUM 4.4 MEQ/L (3.7-5.4); SODIUM 141 MEQ/L (136-147); UREA NITROGEN (BUN) 19 mg/dL (9-23)
[2018-03-14 07:34] VITALS: BP 119/73
[2018-03-14] MEDS ORDERED: FEOSOL325 MG PO (11:15)
[2018-03-14] MEDS ORDERED: ALDACTONE25 MG PO (11:15)
[2018-03-14] MEDS ORDERED: VENTOLIN HFA18 GM IH (11:15)
== END 2018-03-14 13:50 | disposition home health service (06) | DRG 377 ==
LOC: EME 13:54 → EDOF 17:02 → 2EAST 17:02 → 4EAST 17:02 → ENRESERV 17:34 → 4EAST 19:09 → ENRESERV 03-10 14:53 → 2EAST 03-10 15:45
PROVIDERS: Anesthesiology; Emergency Medicine; Family Medicine
DX: K29.61 Other gastritis with bleeding (principal); D50.0 Iron deficiency anemia secondary to blood loss (chronic); D12.2 Benign neoplasm of ascending colon; N17.9 Acute kidney failure, unspecified; I13.0 Hypertensive heart and chronic kidney disease with heart failure and stage 1 through stage 4 chronic kidney disease, or unspecified chronic kidney disease; I50.32 Chronic diastolic (congestive) heart failure; E11.22 Type 2 diabetes mellitus with diabetic chronic kidney disease; J96.21 Acute and chronic respiratory failure with hypoxia; J96.22 Acute and chronic respiratory failure with hypercapnia; N18.3 Chronic kidney disease, stage 3 (moderate); J44.9 Chronic obstructive pulmonary disease, unspecified; G47.33 Obstructive sleep apnea (adult) (pediatric); Z99.81 Dependence on supplemental oxygen; L03.115 Cellulitis of right lower limb; L03.116 Cellulitis of left lower limb; I27.20 Pulmonary hypertension, unspecified; E87.5 Hyperkalemia; I95.9 Hypotension, unspecified; I48.91 Unspecified atrial fibrillation; E66.01 Morbid (severe) obesity due to excess calories; Z68.42 Body mass index [BMI] 45.0-49.9, adult; I25.10 Atherosclerotic heart disease of native coronary artery without angina pectoris; R79.1 Abnormal coagulation profile; T45.515A Adverse effect of anticoagulants, initial encounter; E78.5 Hyperlipidemia, unspecified; F31.9 Bipolar disorder, unspecified; Z91.81 History of falling; Z79.4 Long term (current) use of insulin; Z87.01 Personal history of pneumonia (recurrent); Z87.891 Personal history of nicotine dependence; Z91.19 Patient's noncompliance with other medical treatment and regimen
CPT/HCPCS: 71045; 74250; 80048; 80053; 82948; 83605; 83735; 83880; 84484; 85014; 85018; 85025; 85027; 85610; 85730; 86850; 86900; 86901; 86920; 88305; 93005; 94640; 94660; 94760; 94799; 99281; 99284; 99285; C9113; J0696; J1815; J1940; J2250; J7030; J7050; J7512; P9016

== ENCOUNTER 2018-03-19 22:50 | Inpatient (IN) | payer OTHER ==
[~2018-03-19] VITALS: Ht 160 cm; Wt 114.5 kg
[~2018-03-19 22:50] MED LIST changes: +ALDACTONE25 MG PO; +VENTOLIN HFA18 GM IH
[2018-03-19 23:08] LABS: HEMATOCRIT 25.3 % (36.0-46.0); HEMOGLOBIN 7.8 G/DL (11.9-15.5); MCH 28.8 PG (29.0-34.0); MCHC 30.8 G/DL (30.0-36.0); MCV 93.4 FL (83-99); PLATELET COUNT 200 K/uL (156-360); RBC DIS.WIDTH-CV 15.7 % (11.8-14.6); RBC DIS.WIDTH-SD 53.4 % (39-53); RED BLOOD COUNT 2.71 M/uL (3.80-5.20); WHITE BLOOD COUNT 5.6 K/uL (4.1-10.2)
[2018-03-19 23:19] LABS: CHLORIDE 95 mEq/L (99-109); SODIUM 141 mEq/L (136-147)
[2018-03-19 23:21] LABS: GLUCOSE 240 mg/dL (70-99)
[2018-03-19 23:22] LABS: POTASSIUM 5.4 mEq/L (3.7-5.4)
[2018-03-19 23:25] LABS: CREATININE 1.6 mg/dL (0.6-1.3); GFR ESTIMATE (CALCULATED) 35 mL/min/; UREA NITROGEN (BUN) 25 mg/dL (9-23)
[2018-03-20 01:32] VITALS: BP 132/66
[2018-03-20 04:30] VITALS: BP 123/60
[2018-03-20 05:14] LABS: HEMATOCRIT 27.1 % (36.0-46.0); HEMOGLOBIN 8.2 G/DL (11.9-15.5); MCH 28.7 PG (29.0-34.0); MCHC 30.3 G/DL (30.0-36.0); MCV 94.8 FL (83-99); PLATELET COUNT 215 K/uL (156-360); RBC DIS.WIDTH-CV 15.6 % (11.8-14.6); RBC DIS.WIDTH-SD 54.6 % (39-53); RED BLOOD COUNT 2.86 M/uL (3.80-5.20); WHITE BLOOD COUNT 5.2 K/uL (4.1-10.2)
[2018-03-20] MEDS ORDERED: FEOSOL325 MG PO (05:26)
[2018-03-20] MEDS ORDERED: ALDACTONE25 MG PO (05:27)
[2018-03-20 06:08] LABS: CHLORIDE 93 MEQ/L (99-109); CREATININE 1.5 MG/DL (0.6-1.3); GFR ESTIMATE (CALCULATED) 37 mL/min/; GLUCOSE 220 mg/dL (70-99); POTASSIUM 5.1 MEQ/L (3.7-5.4); SODIUM 139 MEQ/L (136-147); UREA NITROGEN (BUN) 25 mg/dL (9-23)
[2018-03-20 06:26] LABS: CARBON DIOXIDE (BICARBONATE) > 40.0 MEQ/L (20-31)
[2018-03-20 07:02] VITALS: BP 127/61
[2018-03-20 14:47] VITALS: BP 132/56
[2018-03-20 15:12] VITALS: BP 122/65
[2018-03-20 19:40] VITALS: BP 145/62
[2018-03-21 00:21] VITALS: BP 118/56
[2018-03-21 03:59] VITALS: BP 108/57
[2018-03-21 07:30] VITALS: BP 116/58
[2018-03-21 11:49] VITALS: BP 122/64
[2018-03-21 13:47] LABS: POTASSIUM 5.8 mEq/L (3.7-5.4); SODIUM 136 mEq/L (136-147)
[2018-03-21 13:48] LABS: CHLORIDE 83 mEq/L (99-109)
[2018-03-21 13:49] LABS: GLUCOSE 354 mg/dL (70-99)
[2018-03-21 13:53] LABS: CREATININE 1.6 mg/dL (0.6-1.3); GFR ESTIMATE (CALCULATED) 35 mL/min/
[2018-03-21 13:54] LABS: CARBON DIOXIDE (BICARBONATE) > 40.0 mEq/L (20-31); UREA NITROGEN (BUN) 24 mg/dL (9-23)
[2018-03-21 16:23] VITALS: BP 110/67
[2018-03-21 20:10] VITALS: BP 126/65
[2018-03-22 00:15] VITALS: BP 134/66
[2018-03-22 05:08] VITALS: BP 138/82
[2018-03-22 05:45] LABS: BASOPHIL (%) 0.2 % (0-1); EOSINOPHIL (%) 3.9 % (0-5); EOSINOPHIL COUNT 0.2 K/uL (0-0.3); HEMATOCRIT 28.1 % (36.0-46.0); HEMOGLOBIN 8.6 G/DL (11.9-15.5); IMMATURE GRANULOCYTE (%) 0.4 % (0.0-0.7); LYMPHOCYTE COUNT 1.3 K/uL (1.0-2.8); MCH 28.1 PG (29.0-34.0); MCHC 30.6 G/DL (30.0-36.0); MCV 91.8 FL (83-99); MONOCYTE (%) 8.8 % (3-12); MONOCYTE COUNT 0.4 K/uL (0-0.8); NEUTROPHIL (%) 58.7 % (45-76); NEUTROPHIL COUNT 2.7 K/uL (1.8-6.4); PLATELET COUNT 248 K/uL (156-360); RBC DIS.WIDTH-CV 15.3 % (11.8-14.6); RBC DIS.WIDTH-SD 51.8 % (39-53); RED BLOOD COUNT 3.06 M/uL (3.80-5.20); WHITE BLOOD COUNT 4.7 K/uL (4.1-10.2)
[2018-03-22 06:15] LABS: CHLORIDE 89 MEQ/L (99-109); CREATININE 1.3 MG/DL (0.6-1.3); GFR ESTIMATE (CALCULATED) 44 mL/min/; GLUCOSE 241 mg/dL (70-99); SODIUM 139 MEQ/L (136-147); UREA NITROGEN (BUN) 19 mg/dL (9-23)
[2018-03-22 06:57] LABS: CARBON DIOXIDE (BICARBONATE) > 40.0 MEQ/L (20-31); POTASSIUM 4.2 MEQ/L (3.7-5.4)
[2018-03-22 08:10] VITALS: BP 138/80
[2018-03-22 11:53] VITALS: BP 156/60
[2018-03-22] MEDS ORDERED: FUROSEMIDE40 MG PO (12:22)
== END 2018-03-22 14:02 | disposition home health service (06) | DRG 291 ==
LOC: EME 22:50 → EDOF 03-20 00:43 → 4SOUTH 03-20 00:43 → 4EAST 03-20 00:43 → ENRESERV 03-20 09:39 → 4SOUTH 03-20 12:21
PROVIDERS: Emergency Medicine; Family Medicine
DX: I13.0 Hypertensive heart and chronic kidney disease with heart failure and stage 1 through stage 4 chronic kidney disease, or unspecified chronic kidney disease (principal); I50.33 Acute on chronic diastolic (congestive) heart failure; N18.3 Chronic kidney disease, stage 3 (moderate); J44.1 Chronic obstructive pulmonary disease with (acute) exacerbation; Z99.81 Dependence on supplemental oxygen; I27.20 Pulmonary hypertension, unspecified; I48.2 Chronic atrial fibrillation; E11.22 Type 2 diabetes mellitus with diabetic chronic kidney disease; D50.9 Iron deficiency anemia, unspecified; E66.01 Morbid (severe) obesity due to excess calories; Z68.42 Body mass index [BMI] 45.0-49.9, adult; G47.33 Obstructive sleep apnea (adult) (pediatric); I25.10 Atherosclerotic heart disease of native coronary artery without angina pectoris; E78.5 Hyperlipidemia, unspecified; K21.9 Gastro-esophageal reflux disease without esophagitis; F31.9 Bipolar disorder, unspecified; F41.9 Anxiety disorder, unspecified; Z87.891 Personal history of nicotine dependence
CPT/HCPCS: 71046; 80048; 82948; 83880; 85025; 85027; 87641; 94640; 94760; 94799; 99281; 99285; J1940; J7512

== ENCOUNTER 2018-03-27 10:20 | Inpatient (IN) | payer OTHER ==
[~2018-03-27] VITALS: Ht 160 cm; Wt 106.5 kg
[2018-03-27] VITALS (7 sets, daily range): BP systolic 128–157; BP diastolic 56–95
[~2018-03-27 10:20] MED LIST changes: +FUROSEMIDE40 MG PO
[2018-03-27 11:50] LABS: BASOPHIL (%) 0.3 % (0-1); EOSINOPHIL (%) 2.6 % (0-5); EOSINOPHIL COUNT 0.2 K/uL (0-0.3); HEMATOCRIT 32.8 % (36.0-46.0); HEMOGLOBIN 9.9 G/DL (11.9-15.5); IMMATURE GRANULOCYTE (%) 0.6 % (0.0-0.7); LYMPHOCYTE (%) 8.6 % (15-42); LYMPHOCYTE COUNT 0.8 K/uL (1.0-2.8); MCH 28.9 PG (29.0-34.0); MCHC 30.2 G/DL (30.0-36.0); MCV 95.6 FL (83-99); MONOCYTE (%) 7.7 % (3-12); MONOCYTE COUNT 0.7 K/uL (0-0.8); NEUTROPHIL (%) 80.2 % (45-76); PLATELET COUNT 227 K/uL (156-360); RBC DIS.WIDTH-CV 14.9 % (11.8-14.6); RBC DIS.WIDTH-SD 52.6 % (39-53); RED BLOOD COUNT 3.43 M/uL (3.80-5.20); WHITE BLOOD COUNT 8.7 K/uL (4.1-10.2)
[2018-03-27 12:00] LABS: PTT 30.1 SEC (25-37)
[2018-03-27 12:25] LABS: TROP-I INTERPRETATION NEGATIVE; TROPONIN-I < 0.01 ng/mL (0.0-0.30)
[2018-03-27 13:05] LABS: CHLORIDE 95 MEQ/L (99-109); CREATININE 1.3 MG/DL (0.6-1.3); GFR ESTIMATE (CALCULATED) 44 mL/min/; GLUCOSE 270 mg/dL (70-99); POTASSIUM 4.9 MEQ/L (3.7-5.4); SODIUM 142 MEQ/L (136-147); UREA NITROGEN (BUN) 24 mg/dL (9-23)
[2018-03-27 13:06] LABS: CARBON DIOXIDE (BICARBONATE) > 40.0 MEQ/L (20-31)
[2018-03-27 16:14] LABS: COMMENTS - BLOOD GASES A+C+; SITE RR
[2018-03-27 16:15] LABS: BASE EXCESS 15.5 mEq/L (-3 to +3); BICARBONATE 45.8 mEq/L (22-26); CARBOXY HGB 2.4 % (0-5); DEVICE NC; METHEMOGLOBIN 1.3 % (0-1.5); O2 FLOW 4 L/MIN; O2 SATURATION (CALCULATED) 87.1 % (95-99); PCO2 102 mm Hg (35-45); PO2 53 mm Hg (80-100); pH 7.26 (7.35-7.45)
[2018-03-27 18:53] LABS: DEVICE MASK VENT; FI02 30 %; MODE NIV; PCO2 92 mm Hg (35-45); PO2 73 mm Hg (80-100); SITE LR; TOTAL RESP RATE 10 resp/min
[2018-03-27 18:54] LABS: BASE EXCESS 16 mEq/L (-3 to +3); BICARBONATE 45.3 mEq/L (22-26); CARBOXY HGB 2.4 % (0-5); METHEMOGLOBIN 0.6 % (0-1.5); O2 SATURATION (CALCULATED) 94.1 % (95-99)
[2018-03-27 20:44] LABS: DEVICE MASK VENT; FI02 50 %; SITE LR
[2018-03-27 20:45] LABS: BASE EXCESS 16.2 mEq/L (-3 to +3); CARBOXY HGB 2.6 % (0-5); METHEMOGLOBIN 0.6 % (0-1.5); MODE SPONT PS; PCO2 98 mm Hg (35-45); PEEP 5 CM/H20; PO2 48 mm Hg (80-100); PRES. SUPPORT 12 CM/H2O; TOTAL RESP RATE 12 resp/min; pH 7.28 (7.35-7.45)
[2018-03-27 23:18] LABS: COMMENTS - BLOOD GASES C+A+; DEVICE VENT; FI02 35 %; SITE LR; TOTAL RESP RATE 16 resp/min
[2018-03-27 23:19] LABS: BASE EXCESS 17.3 mEq/L (-3 to +3); BICARBONATE 45.8 mEq/L (22-26); CARBOXY HGB 2.8 % (0-5); MECHANICAL RATE 6 resp/min; METHEMOGLOBIN 1.5 % (0-1.5); PCO2 83 mm Hg (35-45); PEEP 5 CM/H20; PO2 79 mm Hg (80-100); PRES. SUPPORT 12 CM/H2O; TIDAL VOLUME 400 ML; pH 7.35 (7.35-7.45)
[2018-03-28] VITALS (21 sets, daily range): BP systolic 114–138; BP diastolic 60–95
[2018-03-28 05:33] LABS: HEMATOCRIT 26.9 % (36.0-46.0); HEMOGLOBIN 8.3 G/DL (11.9-15.5); MCH 28.6 PG (29.0-34.0); MCHC 30.9 G/DL (30.0-36.0); MCV 92.8 FL (83-99); PLATELET COUNT 190 K/uL (156-360); RBC DIS.WIDTH-CV 14.6 % (11.8-14.6); RBC DIS.WIDTH-SD 49.5 % (39-53); WHITE BLOOD COUNT 6.6 K/uL (4.1-10.2)
[2018-03-28 06:18] LABS: ALBUMIN 3.1 G/DL (3.2-4.8); ALKALINE PHOSPHATASE 50 IU/L (3-129); ALT (GPT) 13 IU/L (3-49); AST (GOT) 8 IU/L (2-34); CHLORIDE 92 MEQ/L (99-109); CREATININE 1.3 MG/DL (0.6-1.3); GFR ESTIMATE (CALCULATED) 44 mL/min/; GLUCOSE 292 mg/dL (70-99); POTASSIUM 4.6 MEQ/L (3.7-5.4); SODIUM 140 MEQ/L (136-147); TOTAL BILIRUBIN 0.5 MG/DL (0.0-1.0); TOTAL PROTEIN 5.2 G/DL (6.4-8.3); UREA NITROGEN (BUN) 26 mg/dL (9-23)
[2018-03-29] VITALS (14 sets, daily range): BP systolic 90–147; BP diastolic 55–104
[2018-03-30] VITALS (7 sets, daily range): BP systolic 116–137; BP diastolic 63–77
[2018-03-30 05:21] LABS: BASOPHIL (%) 0.3 % (0-1); EOSINOPHIL (%) 1.8 % (0-5); EOSINOPHIL COUNT 0.1 K/uL (0-0.3); HEMATOCRIT 29.5 % (36.0-46.0); IMMATURE GRANULOCYTE (%) 0.7 % (0.0-0.7); LYMPHOCYTE (%) 26.1 % (15-42); LYMPHOCYTE COUNT 1.6 K/uL (1.0-2.8); MCH 28.2 PG (29.0-34.0); MCHC 30.5 G/DL (30.0-36.0); MCV 92.5 FL (83-99); MONOCYTE (%) 7.7 % (3-12); MONOCYTE COUNT 0.5 K/uL (0-0.8); NEUTROPHIL (%) 63.4 % (45-76); NEUTROPHIL COUNT 3.9 K/uL (1.8-6.4); PLATELET COUNT 202 K/uL (156-360); RBC DIS.WIDTH-CV 14.6 % (11.8-14.6); RBC DIS.WIDTH-SD 50.1 % (39-53); RED BLOOD COUNT 3.19 M/uL (3.80-5.20); WHITE BLOOD COUNT 6.1 K/uL (4.1-10.2)
[2018-03-30 06:02] LABS: CHLORIDE 87 MEQ/L (99-109); CREATININE 1.5 MG/DL (0.6-1.3); GFR ESTIMATE (CALCULATED) 37 mL/min/; GLUCOSE 298 mg/dL (70-99); POTASSIUM 4.2 MEQ/L (3.7-5.4); SODIUM 139 MEQ/L (136-147); UREA NITROGEN (BUN) 25 mg/dL (9-23)
[2018-03-30 06:07] LABS: CARBON DIOXIDE (BICARBONATE) > 40.0 MEQ/L (20-31)
[2018-03-31 03:23] VITALS: BP 113/64
[2018-03-31 06:02] LABS: BASOPHIL (%) 0.4 % (0-1); EOSINOPHIL (%) 2.9 % (0-5); EOSINOPHIL COUNT 0.2 K/uL (0-0.3); HEMATOCRIT 31.2 % (36.0-46.0); HEMOGLOBIN 9.5 G/DL (11.9-15.5); IMMATURE GRANULOCYTE (%) 0.4 % (0.0-0.7); LYMPHOCYTE (%) 26.5 % (15-42); LYMPHOCYTE COUNT 1.4 K/uL (1.0-2.8); MCH 28.3 PG (29.0-34.0); MCHC 30.4 G/DL (30.0-36.0); MCV 92.9 FL (83-99); MONOCYTE (%) 7.6 % (3-12); MONOCYTE COUNT 0.4 K/uL (0-0.8); NEUTROPHIL (%) 62.2 % (45-76); NEUTROPHIL COUNT 3.2 K/uL (1.8-6.4); PLATELET COUNT 201 K/uL (156-360); RBC DIS.WIDTH-CV 14.4 % (11.8-14.6); RED BLOOD COUNT 3.36 M/uL (3.80-5.20); WHITE BLOOD COUNT 5.1 K/uL (4.1-10.2)
[2018-03-31 06:29] LABS: CHLORIDE 90 MEQ/L (99-109); CREATININE 1.4 MG/DL (0.6-1.3); GFR ESTIMATE (CALCULATED) 40 mL/min/; GLUCOSE 228 mg/dL (70-99); SODIUM 140 MEQ/L (136-147); UREA NITROGEN (BUN) 21 mg/dL (9-23)
[2018-03-31 06:30] LABS: POTASSIUM 5.1 MEQ/L (3.7-5.4)
[2018-03-31 06:45] VITALS: BP 134/76
[2018-03-31 06:49] LABS: CARBON DIOXIDE (BICARBONATE) > 40.0 MEQ/L (20-31)
[2018-03-31 11:35] VITALS: BP 112/64
[2018-03-31 15:25] VITALS: BP 112/59
[2018-03-31 19:03] VITALS: BP 159/77
[2018-03-31 23:16] VITALS: BP 139/789; BP 139/79
[2018-04-01 03:48] VITALS: BP 107/56
[2018-04-01 07:35] VITALS: BP 124/60
[2018-04-01 08:19] LABS: CHLORIDE 88 mEq/L (99-109); POTASSIUM 4.1 mEq/L (3.7-5.4); SODIUM 140 mEq/L (136-147)
[2018-04-01 08:20] LABS: GLUCOSE 171 mg/dL (70-99)
[2018-04-01 08:23] LABS: CARBON DIOXIDE (BICARBONATE) > 40.0 mEq/L (20-31)
[2018-04-01 08:24] LABS: CREATININE 1.5 mg/dL (0.6-1.3); GFR ESTIMATE (CALCULATED) 37 mL/min/
[2018-04-01 08:25] LABS: UREA NITROGEN (BUN) 19 mg/dL (9-23)
[2018-04-01] MEDS ORDERED: LOPRESSOR25 MG PO (09:20)
[2018-04-01] MEDS ORDERED: LOPRESSOR50 MG PO (09:20)
[2018-04-01] MEDS ORDERED: PANTOPRAZOLE SO40 MG PO (09:24)
[2018-04-01] MEDS ORDERED: NOVOLOG PE100 UNITS/ SC (09:28)
[2018-04-01] MEDS ORDERED: TIZANIDINE HCL4 MG PO (09:32)
[2018-04-01 11:20] VITALS: BP 125/67
[2018-04-01] MEDS ORDERED: SYMBICORT60 INHALAT IH (12:14)
[2018-04-01] MEDS ORDERED: SPIRIVA18 MCG IH (12:14)
[2018-04-01] MEDS ORDERED: LEVAQUIN750 MG PO (12:23)
[2018-04-10] MEDS ORDERED: SPIRIVA18 MCG IH (23:21)
[2018-04-10] MEDS ORDERED: ALBUTEROL2.5 MG/3 M IH (23:24)
[2018-04-10] MEDS ORDERED: SPIRONOLACTONE25 MG PO (23:24)
[2018-04-10] MEDS ORDERED: PREDNISONE10 MG PO (23:29)
[2018-04-10] MEDS ORDERED: COREG25 M1 PO (23:30)
== END 2018-04-01 15:05 | disposition home health service (06) | DRG 189 ==
LOC: EME 10:20 → EDOF 13:10 → 4WEST 13:10 → ENRESERV 13:11 → 4EAST 14:19 → 4WEST 17:03 → ENRESERV 17:03 → 4WEST 03-29 12:34 → ENRESERV 03-29 19:42 → 4EAST 03-29 20:40 → ENRESERV 03-30 14:30 → 5EAST 03-30 17:18
PROVIDERS: Emergency Medicine; Family Medicine; Internal Medicine Critical Care Medicine; Surgery
PROC: 5A09357 Assistance with Respiratory Ventilation, Less than 24 Consecutive Hours, Continuous Positive Airway Pressure (ICD-10-PCS; principal; 2018-03-27)
DX: J96.21 Acute and chronic respiratory failure with hypoxia (principal); J96.22 Acute and chronic respiratory failure with hypercapnia; J44.0 Chronic obstructive pulmonary disease with (acute) lower respiratory infection; J18.9 Pneumonia, unspecified organism; I13.0 Hypertensive heart and chronic kidney disease with heart failure and stage 1 through stage 4 chronic kidney disease, or unspecified chronic kidney disease; I50.33 Acute on chronic diastolic (congestive) heart failure; N18.2 Chronic kidney disease, stage 2 (mild); Z99.81 Dependence on supplemental oxygen; E66.01 Morbid (severe) obesity due to excess calories; Z68.42 Body mass index [BMI] 45.0-49.9, adult; I48.91 Unspecified atrial fibrillation; I27.20 Pulmonary hypertension, unspecified; E11.22 Type 2 diabetes mellitus with diabetic chronic kidney disease; E11.65 Type 2 diabetes mellitus with hyperglycemia; G47.33 Obstructive sleep apnea (adult) (pediatric); I25.10 Atherosclerotic heart disease of native coronary artery without angina pectoris; D64.9 Anemia, unspecified; E78.5 Hyperlipidemia, unspecified; F31.9 Bipolar disorder, unspecified; Z86.73 Personal history of transient ischemic attack (TIA), and cerebral infarction without residual deficits; Z87.891 Personal history of nicotine dependence
CPT/HCPCS: 36600; 71045; 80048; 80053; 82948; 83605; 83880; 84484; 85025; 85027; 85610; 85730; 87040; 87086; 87641; 93005; 94002; 94640; 94660; 94760; 94799; 99281; 99285; J0692; J1644; J1815; J1940; J1956; J2930; J7050; J7512